=== PATIENT | female | born 1960 | race Caucasian/White ===

== ENCOUNTER 2020-03-24 00:50 | Outpatient (CLI) | payer OTHER, SELFPAY ==
[2020-03-24 18:01] LABS: SARS-CoV-2 RNA PCR Negative
== END 2020-03-24 00:51 | disposition home or self-care (01) ==
LOC: ANHCOVIDDT 00:52
PROVIDERS: PCP Family Medicine; Visit Provider Internal Medicine Gastroenterology
DX: Z01.812 Encounter for preprocedural laboratory examination (principal); Z20.828 Contact with and (suspected) exposure to other viral communicable diseases
CPT/HCPCS: 87635; C9803; U0003

== ENCOUNTER 2020-03-26 01:52 | Day surgery (SDC) | payer OTHER, SELFPAY ==
[2020-03-19 13:27] VITALS: BMI 28.3
[2020-03-26 09:13] VITALS: BP 140/94; PULSE 77; RESP 20; TEMP 36.4; O2SAT 99
[2020-03-26] MEDS: LACTATED RINGERS 1,000 ML 150 ML IV CONT (09:31)
[2020-03-26 09:34] LABS: Glucose Point of Care 100 (65-105)
--- NOTE | 2020-03-26 09:41 | WPDANESEPPF ---
Anes - Initial Pre Proc Eval Procedure: Operation Date: 03/26/20 10:00 Proposed Procedures p Esophagogastroduodenoscopy - Brooks Christopher MD Date/Time: 03/26/20 09:41 Surgeon: Brooks Christopher MD Pre Op Diagnosis: Heartburn Patient Data Age: 59 Gender: F Height: 5 ft 6 in Weight: 124.4 kg Last Vital Signs Temp 36.4 C 03/26/20 09:13 Pulse 77 03/26/20 09:13 Resp 20 03/26/20 09:13 BP 140/94 H 03/26/20 09:13 Pulse Ox 99 03/26/20 09:13 Allergies Allergy/AdvReac Type Severity Reaction Status Date / Time No Known Allergies Allergy Unverified 03/26/20 09:08 Home Medications Medication Instructions Recorded Confirmed Type nabumetone 500 mg tablet 500 mg PO BID 06/14/19 03/26/20 History Synthroid 75 mcg tablet 75 mcg PO DAILY #90 tablet NS 07/03/19 03/26/20 Rx gabapentin 300 mg capsule 300 mg PO BID 07/17/19 03/26/20 History triamterene 37.5 1 tablet PO QAM #90 tablet 08/02/19 03/26/20 Rx mg-hydrochlorothiazide 25 mg tablet metformin 500 mg tablet,extended 500 mg PO DAILY #90 tablet 08/08/19 03/26/20 Rx release 24 hr omeprazole 40 mg capsule,delayed 40 mg PO DAILY #90 cap 08/28/19 03/26/20 Rx release trazodone 50 mg tablet 50 mg PO .qhs #90 tablet 08/28/19 03/26/20 Rx albuterol sulfate 2.5 mg INHALATION Q4-6H PRN #90 ml 10/12/19 03/26/20 Rx nebulizers #1 each 10/12/19 03/26/20 Rx Anoro Ellipta 62.5 mcg-25 1 inhalation INHALATION DAILY 90 01/29/20 03/26/20 Rx mcg/actuation powder for inhalation Days #3 each NS venlafaxine 75 mg capsule,extended See Rx Instructions .ROUTE 02/01/20 03/26/20 Rx release 24 hr .COMPLEX #90 cap diclofenac epolamine 1.3 % 1 patch TOPICAL Q12H #180 each 02/26/20 03/26/20 Rx transdermal 12 hour patch sucralfate 1 gram tablet 1 gm PO .COMPLEX #120 tablet 03/13/20 03/26/20 Rx Laboratory Tests 03/26/20 09:30 POC Capillary Glucose 100 mg/dl mg/dl (65-105) Patient hx anesthesia problems: none Family hx anesthesia problems: none [facility] Past Medical History Medical History Anxiety and depression Autoimmune thyroiditis COPD (chronic obstructive pulmonary disease) with acute bronchitis Essential hypertension Human papillomavirus Hypothyroid Prediabetes Family History Family History Mother Hypertension Patient's mother is Father Family history of cardiovascular disease Family history of Alzheimer's disease Sibling Family history of cardiovascular disease Grandparent Family history of Alzheimer's disease Other Colon polyp Social History Social History Smoking status: Former smoker Tobacco type: cigarettes and e-cigarettes/vaping Smoking end date: 06/27/13 Alcohol intake: current Drinks per week: 5 Substance use: never Substance use type: does not use Living arrangements: with family Spiritual care concerns: No Anes - Eval Final PreProcedure Day of Procedure 03/26/20 09:41 Patient weight: morbidly obese Heart: regular rate and rhythm Lungs: decreased breath sounds Airway: Mallampati scale class II Neurological: alert and oriented Last oral intake: >/= 8 hours ASA classification: III Emergent: no Anesthetic plan: proceed Anesthesia type and monitoring: general GIVS and standard monitoring Informed Consent: The patient's anesthetic plan and its attendant risks and benefits were discussed with the patient/family/POA. Questions were solicited and answers provided to the satisfaction of the patient/family/POA.
--- NOTE | 2020-03-26 09:52 | WPDGICN ---
Assessment and Plan Assessment and plan (1) Gastroesophageal reflux disease: Qualifiers: Esophagitis presence: with esophagitis Qualified Code(s): K21.0 - Gastro-esophageal reflux disease with esophagitis Code(s): K21.9 - Gastro-esophageal reflux disease without esophagitis Status: Acute Assessment and Plan: Patient has ongoing heartburn poorly responsive to omeprazole 40 mg p.o. daily plus Carafate. She intermittently complains of dysphagia plan is to proceed with EGD now. In further recommendations after endoscopy. [place] diet anti-reflux measures are encouraged initially. (2) Morbid obesity with BMI of 40.0-44.9, adult: Code(s): E66.01 - Morbid (severe) obesity due to excess calories; Z68.41 - Body mass index (BMI) 40.0-44.9, adult Status: Acute (3) Colon polyps: Code(s): K63.5 - Polyp of colon Status: Acute Assessment and Plan: Serrated colon polyp was removed from the colon 2015. Plan is for surveillance colonoscopy in 2020. GI Consult Note Consult date/time: 03/26/20 09:52 HPI: oNni Alonzo is a 59 year old female Seen in evaluation at the request of Dr. Suleman Sun. Patient has a long history of heartburn. She has been treated for acid reflux with omeprazole 20 mg p.o. daily. Recently dose was increased to40mg p.o. daily, Carafate was added to this regimes. Patient's symptom of acid reflux and heartburn persist despite this medication. She occasionally notices difficulty swallowing. She denies any weight loss or bleeding. She presents today for EGD because of poor response to medication therapy. Review of Systems Review of Systems: All systems reviewed & are unremarkable except as noted in HPI and below PMFSH Past Medical History Medical History Anxiety and depression Autoimmune thyroiditis COPD (chronic obstructive pulmonary disease) with acute bronchitis Essential hypertension Human papillomavirus Hypothyroid Prediabetes Family History Family History Mother Hypertension Patient's mother is Father Family history of cardiovascular disease Family history of Alzheimer's disease Sibling Family history of cardiovascular disease Grandparent Family history of Alzheimer's disease Other Colon polyp Social History Social History Smoking status: Former smoker Tobacco type: cigarettes and e-cigarettes/vaping Smoking end date: 06/27/13 Alcohol intake: current Drinks per week: 5 Substance use: never Substance use type: does not use Living arrangements: with family Spiritual care concerns: No Meds Home Medications and Allergies Home Medications Medication Instructions Recorded Confirmed Type nabumetone 500 mg tablet 500 mg PO BID 06/14/19 03/26/20 History Synthroid 75 mcg tablet 75 mcg PO DAILY #90 tablet NS 07/03/19 03/26/20 Rx gabapentin 300 mg capsule 300 mg PO BID 07/17/19 03/26/20 History triamterene 37.5 1 tablet PO QAM #90 tablet 08/02/19 03/26/20 Rx mg-hydrochlorothiazide 25 mg tablet metformin 500 mg tablet,extended 500 mg PO DAILY #90 tablet 08/08/19 03/26/20 Rx release 24 hr omeprazole 40 mg capsule,delayed 40 mg PO DAILY #90 cap 08/28/19 03/26/20 Rx release trazodone 50 mg tablet 50 mg PO .qhs #90 tablet 08/28/19 03/26/20 Rx albuterol sulfate 2.5 mg INHALATION Q4-6H PRN #90 ml 10/12/19 03/26/20 Rx nebulizers #1 each 10/12/19 03/26/20 Rx Anoro Ellipta 62.5 mcg-25 1 inhalation INHALATION DAILY 90 01/29/20 03/26/20 Rx mcg/actuation powder for inhalation Days #3 each NS venlafaxine 75 mg capsule,extended See Rx Instructions .ROUTE 02/01/20 03/26/20 Rx release 24 hr .COMPLEX #90 cap diclofenac epolamine 1.3 % 1 patch TOPICAL Q12H #180 each 02/26/20 03/26/20 Rx transdermal 12 hour patch
[2020-03-26 10:12] VITALS: BP 111/68; PULSE 70; RESP 16; O2SAT 95
[2020-03-26 10:22] VITALS: BP 123/78; PULSE 61; RESP 16; O2SAT 95
[2020-03-26 10:32] VITALS: BP 134/74; PULSE 64; RESP 16; O2SAT 98
== END 2020-03-26 10:54 | disposition home or self-care (01) ==
PROVIDERS: PCP Family Medicine; Visit Provider Internal Medicine Gastroenterology
PROC: 0DJ08ZZ Inspection of Upper Intestinal Tract, Via Natural or Artificial Opening Endoscopic (ICD-10-PCS; CPT 43235; principal; 2020-03-26 10:00)
DX: K21.9 Gastro-esophageal reflux disease without esophagitis (principal); I10 Essential (primary) hypertension; J44.9 Chronic obstructive pulmonary disease, unspecified; R73.03 Prediabetes; F41.8 Other specified anxiety disorders; E06.3 Autoimmune thyroiditis; Z87.891 Personal history of nicotine dependence; Z79.84 Long term (current) use of oral hypoglycemic drugs; E66.01 Morbid (severe) obesity due to excess calories; Z68.41 Body mass index [BMI] 40.0-44.9, adult
CPT/HCPCS: 43239; 87081; J2704; J7120

== ENCOUNTER → 2020-07-31 13:47 | Outpatient (CLI) | payer OTHER, SELFPAY ==
--- NOTE | ~2020-07-31 | XR_ITS ---
XR chest 2V DATE: 07/31/2020 14:09 INDICATION: Covid 19 TECHNIQUE: 2 views COMPARISON: 05/12/2017 two-view chest FINDINGS: Normal heart size. There is aortic unfolding. No hilar or mediastinal enlargement. No pu lmonary infiltrate or consolidation, pulmonary vascular congestion or pleural effusion or pneumothora x. Diffuse osteopenia. IMPRESSION: No active disease Reviewed, dictated and finalized at location A. BODY MECHANIC IMPRESSION: No active disease
== END ==
PROVIDERS: PCP Family Medicine; Visit Provider Family Medicine
DX: U07.1 COVID-19 (principal)
CPT/HCPCS: 71046

== ENCOUNTER → 2020-09-18 07:03 | Outpatient (CLI) | payer OTHER, SELFPAY ==
--- NOTE | ~2020-09-18 | MR_ITS ---
EXAMINATION: MR IAC wo con EXAM DATE: 09/18/2020 07:48 INDICATION: R51.9 - Headache, unspecified headache . Severe dizziness, progressing. TECHNIQUE: Multi-sequential, multiplanar MR images of the brain, brainstem, internal auditory canals were obtained without contrast. Whole brain sagittal T1, axial diffusion, gradient echo (T2*), T1, T 2, FLAIR sequences obtained. High resolution coronal 3-D FIESTA, coronal T1 FSE, axial T1 FSPGR of t he internal auditory canals. There is no prior study for comparison. FINDINGS: No evidence of mastoid or middle ear opacification. The 7th/8th cranial nerve complexes a re symmetric, normal in course and caliber. No cerebellopontine angle masses. Posterior fossa unrem arkable. There are no areas of restricted diffusion to suggest acute infarction. There is no acute hemorrhage seen on the T2*, a hemosiderin sensitive sequence. No intraparenchymal brain mass. The ventricles a re normal in size. There are no extra-axial collections. Flow voids are seen in the cerebral arteri es on the T2-weighted sequences consistent with their expected patency. The orbits are unremarkable. Soft tissue is unremarkable. IMPRESSION: Unremarkable brain/IAC MRI examination. Reviewed, dictated and finalized at location A.
== END ==
PROVIDERS: PCP Family Medicine; Visit Provider Family Medicine
DX: R42 Dizziness and giddiness (principal); R51.9 Headache, unspecified
CPT/HCPCS: 70551

== ENCOUNTER → 2021-04-21 08:57 | Outpatient (CLI) | payer OTHER, SELFPAY ==
--- NOTE | ~2021-04-21 | CT_ITS ---
EXAMINATION: CT lung screening EXAM DATE: 04/21/2021 09:17 INDICATION: F17.201 - Nicotine dependence, unspecified, in remission. Personal history of nicotine de pendence. TECHNIQUE: Spiral low dose CT of the chest without contrast. Axial, coronal and sagittal images were reviewed. The dose-length product (DLP) for this examination was 268.25 mGy-cm. The exposure was t ailored according to patient size (auto mA exposure control), and iterative reconstruction (ASIR) was used as additional dose reduction technique. There is no prior study for comparison. FINDINGS: There is 3 mm left lateral sulcus nodule, most likely postinfectious. There is some epicar dial exit field there is mild emphysema. Fat insinuating in the left major fissure. Tracheobronchial tree is patent. There is no mediastinal, hilar or axillary lymphadenopathy. There are no pleural or pericardial effusions. There is no pneumothorax. Heart normal in size. There is mild brooks ry arterial calcification, arterial sclerosis. Upper abdomen is unremarkable. There is thoracic spo ndylosis without osteoblastic or osteolytic lesions identified. IMPRESSION: Lung-RADS category 2, benign appearance or behavior (<1% chance of malignancy); recommend continued LDCT screening in 1 year. Reviewed, dictated and finalized at location B.
== END ==
PROVIDERS: PCP Family Medicine; Visit Provider Family Medicine
DX: Z12.2 Encounter for screening for malignant neoplasm of respiratory organs (principal); Z87.891 Personal history of nicotine dependence
CPT/HCPCS: 71271

== ENCOUNTER 2021-07-13 00:26 | Day surgery (SDC) | payer OTHER, SELFPAY ==
[2021-06-25 13:41] VITALS: BMI 34.7
[2021-07-13 10:52] VITALS: BP 141/98; PULSE 76; RESP 17; TEMP 36.2; O2SAT 100; BMI 38.1
--- NOTE | 2021-07-13 10:54 | WPDANESEPPF ---
Anes - Initial Pre Proc Eval Procedure: Operation Date: 07/13/21 11:30 Proposed Procedures p Screening Colonoscopy - Brooks Christopher MD Date/Time: 07/13/21 10:54 Surgeon: Brooks Christopher MD Pre Op Diagnosis: hx of colon polyps Patient Data Age: 60 Gender: F Height: 1.68 m Weight: 97.7 kg Allergies Allergy/AdvReac Type Severity Reaction Status Date / Time No Known Allergies Allergy Verified 07/13/21 10:49 Home Medications Medication Instructions Recorded Confirmed Type nabumetone 500 mg tablet 500 mg PO BID 06/14/19 07/13/21 History gabapentin 300 mg capsule 300 mg PO BID 07/17/19 07/13/21 History albuterol sulfate 2.5 mg INHALATION Q4-6H PRN #90 ml 10/12/19 07/13/21 Rx nebulizers #1 each 10/12/19 05/12/21 Rx triamterene 37.5 See Rx Instructions .ROUTE 05/08/20 07/13/21 Rx mg-hydrochlorothiazide 25 mg tablet .COMPLEX #90 tablet metformin 500 mg tablet,extended See Rx Instructions .ROUTE 08/11/20 07/13/21 Rx release 24 hr .COMPLEX #90 tablet vitamin B complex 1 tablet PO WEEKLY 08/28/20 07/13/21 History omeprazole 40 mg capsule,delayed See Rx Instructions .ROUTE 10/28/20 07/13/21 Rx release .COMPLEX #180 cap atorvastatin 10 mg tablet 10 mg PO DAILY #90 tablet 12/23/20 07/13/21 Rx cholecalciferol (vitamin D3) 125 125 mcg PO DAILY 12/23/20 07/13/21 History mcg (5,000 unit) capsule bupropion HCl 300 mg 24 hr tablet, See Rx Instructions .ROUTE 01/06/21 07/13/21 Rx extended release .COMPLEX #90 tablet Anoro Ellipta 62.5 mcg-25 See Rx Instructions .ROUTE 01/28/21 07/13/21 Rx mcg/actuation powder for inhalation .COMPLEX #180 disk NS sucralfate 1 gram tablet See Rx Instructions .ROUTE 03/30/21 07/13/21 Rx .COMPLEX #360 tablet levothyroxine 75 mcg tablet See Rx Instructions .ROUTE 03/31/21 07/13/21 Rx .COMPLEX #90 tablet sertraline 50 mg tablet 50 mg PO DAILY #90 tablet 03/31/21 07/13/21 Rx trazodone 50 mg tablet See Rx Instructions .ROUTE 06/10/21 07/13/21 Rx .COMPLEX #90 tablet tizanidine 4 mg PO Q8H PRN 06/25/21 07/13/21 History felodipine 2.5 mg tablet,extended See Rx Instructions .ROUTE 06/30/21 07/13/21 Rx release 24 hr .COMPLEX #90 tablet ascorbic acid (vitamin C) 500 mg See Rx Instructions .ROUTE 07/06/21 07/13/21 Rx tablet .COMPLEX #60 tablet ferrous sulfate 325 mg (65 mg See Rx Instructions .ROUTE 07/06/21 07/13/21 Rx iron) tablet .COMPLEX #60 tablet Patient hx anesthesia problems: none Family hx anesthesia problems: none Results Review: All pre-operative results and documents have been reviewed as part of the pre-operative evaluation. [facility] Past Medical History Medical History Abnormal colonoscopy 2016 polyp. repeat in 5 years Anosmia Anxiety and depression Autoimmune thyroiditis BPPV (benign paroxysmal positional vertigo) COPD (chronic obstructive pulmonary disease) with acute bronchitis Essential hypertension Foot pain Gastro-esophageal reflux disease without esophagitis Human papillomavirus Hypothyroid Prediabetes Surgical History Surgical History History of back surgery 06.15.20 lumbar facet branch nerve ablation Family History Family History Mother Hypertension Patient's mother is Father Family history of cardiovascular disease Family history of Alzheimer's disease Sibling Family history of cardiovascular disease Grandparent Family history of Alzheimer's disease Other Colon polyp Social History Social History Smoking packs per day: 1 Smoking cigarettes per day: 20.0 Years smoked: 20 Smoking pack-years: 20.00 Smoking status: Former smoker Tobacco type: cigarettes Smoking end date: 06/27/13 Alcohol intake: current Drinks per week: 4 Alcohol use details: Patient states she drinks sociall
[2021-07-13] MEDS: LACTATED RINGERS 1,000 ML 150 ML IV CONT (11:05)
[2021-07-13 11:08] LABS: Glucose Point of Care 109 mg/dl (65-105)
--- NOTE | 2021-07-13 11:12 | WPDGICN ---
Assessment and Plan Assessment and plan (1) Colon polyps: Code(s): K63.5 - Polyp of colon Status: Acute Assessment and Plan: Patient was found to have adenomatous colon polyp removed from the colon 2016. Additionally her father has had colon polyps. Surveillance colonoscopy now and at 5 year intervals is advised. (2) Encounter for colonoscopy in patient with family history of colon polyps: Code(s): Z12.11 - Encounter for screening for malignant neoplasm of colon; Z83.71 - Family history of colonic polyps Status: Acute GI Consult Note Consult date/time: 07/13/21 11:12 HPI: Noni Alonzo is a 60 year old female Presents for screening colonoscopy. Patient was found to have an adenomatous colon polyp in 2016. She presents today for follow-up colonoscopy. Patient's family history is significant that her father had colon polyps. Patient states that her current weight appetite bowel movements are normal. She denies abdominal pain. She has had no bleeding. Review of Systems Review of Systems: All systems reviewed & are unremarkable except as noted in HPI and below PMFSH Past Medical History Medical History Abnormal colonoscopy 2016 polyp. repeat in 5 years Anosmia Anxiety and depression Autoimmune thyroiditis BPPV (benign paroxysmal positional vertigo) COPD (chronic obstructive pulmonary disease) with acute bronchitis Essential hypertension Foot pain Gastro-esophageal reflux disease without esophagitis Human papillomavirus Hypothyroid Prediabetes Surgical History Surgical History History of back surgery 06.15.20 lumbar facet branch nerve ablation Family History Family History Mother Hypertension Patient's mother is Father Family history of cardiovascular disease Family history of Alzheimer's disease Sibling Family history of cardiovascular disease Grandparent Family history of Alzheimer's disease Other Colon polyp Social History Social History Smoking packs per day: 1 Smoking cigarettes per day: 20.0 Years smoked: 20 Smoking pack-years: 20.00 Smoking status: Former smoker Tobacco type: cigarettes Smoking end date: 06/27/13 Alcohol intake: current Drinks per week: 4 Alcohol use details: Patient states she drinks socially Substance use: never Substance use type: does not use Living arrangements: with family Spiritual care concerns: No Meds Home Medications and Allergies Home Medications Medication Instructions Recorded Confirmed Type nabumetone 500 mg tablet 500 mg PO BID 06/14/19 07/13/21 History gabapentin 300 mg capsule 300 mg PO BID 07/17/19 07/13/21 History albuterol sulfate 2.5 mg INHALATION Q4-6H PRN #90 ml 10/12/19 07/13/21 Rx nebulizers #1 each 10/12/19 05/12/21 Rx triamterene 37.5 See Rx Instructions .ROUTE 05/08/20 07/13/21 Rx mg-hydrochlorothiazide 25 mg tablet .COMPLEX #90 tablet metformin 500 mg tablet,extended See Rx Instructions .ROUTE 08/11/20 07/13/21 Rx release 24 hr .COMPLEX #90 tablet vitamin B complex 1 tablet PO WEEKLY 08/28/20 07/13/21 History omeprazole 40 mg capsule,delayed See Rx Instructions .ROUTE 10/28/20 07/13/21 Rx release .COMPLEX #180 cap atorvastatin 10 mg tablet 10 mg PO DAILY #90 tablet 12/23/20 07/13/21 Rx cholecalciferol (vitamin D3) 125 125 mcg PO DAILY 12/23/20 07/13/21 History mcg (5,000 unit) capsule bupropion HCl 300 mg 24 hr tablet, See Rx Instructions .ROUTE 01/06/21 07/13/21 Rx extended release .COMPLEX #90 tablet Anoro Ellipta 62.5 mcg-25 See Rx Instructions .ROUTE 01/28/21 07/13/21 Rx mcg/actuation powder for inhalation .COMPLEX #180 disk NS sucralfate 1 gram tablet See Rx Instructions .ROUTE 03/30/21 07/13/21 Rx .COMPLEX #36
[2021-07-13 11:34] VITALS: BP 99/64; PULSE 64; RESP 16; O2SAT 99
[2021-07-13 11:44] VITALS: BP 102/67; PULSE 64; RESP 21; O2SAT 99
[2021-07-13 11:54] VITALS: BP 111/78; PULSE 60; RESP 19; O2SAT 97
== END 2021-07-13 12:31 | disposition home or self-care (01) ==
PROVIDERS: PCP Family Medicine; Visit Provider Internal Medicine Gastroenterology
PROC: 0DJD8ZZ Inspection of Lower Intestinal Tract, Via Natural or Artificial Opening Endoscopic (ICD-10-PCS; CPT 45378; principal; 2021-07-13 11:30)
DX: Z12.11 Encounter for screening for malignant neoplasm of colon (principal); Z83.71 Family history of colonic polyps; K64.8 Other hemorrhoids; Z86.010 Personal history of colon polyps; R43.0 Anosmia; F41.8 Other specified anxiety disorders; E06.3 Autoimmune thyroiditis; H81.10 Benign paroxysmal vertigo, unspecified ear; J44.9 Chronic obstructive pulmonary disease, unspecified; I10 Essential (primary) hypertension; K21.9 Gastro-esophageal reflux disease without esophagitis; R73.03 Prediabetes; Z87.891 Personal history of nicotine dependence; Z79.84 Long term (current) use of oral hypoglycemic drugs; Z79.51 Long term (current) use of inhaled steroids; E66.9 Obesity, unspecified; Z68.38 Body mass index [BMI] 38.0-38.9, adult
CPT/HCPCS: G0105; 82948; J2001; J2704; J7120

== ENCOUNTER → 2021-07-22 13:27 | Outpatient (CLI) | payer OTHER, SELFPAY ==
--- NOTE | ~2021-07-22 | DEXA_ITS ---
Bone Density Report Name: MARYCARMEN HERMAN Age: 60 Sex: Female Ethnicity: White Date of : 1960 Indication: postmenopausal; screening for osteoporosis; height loss; prior fracture; hysterectomy; Referring Provider: PAVITHRA MARTINEZ Study: Bone densitometry was performed. Exam Date: July 22, 2021 Accession number: [id number] Bone Density: Region BMD T-score Z-score Classification AP Spine (L1-L4) 1.037 -0.1 1.2 Normal Femoral Neck (Left) 0.667 -1.6 -0.4 Osteopenia Total Hip (Left) 0.844 -0.8 0.1 Normal Femoral Neck (Right) 0.686 -1.5 -0.2 Osteopenia Total Hip (Right) 0.858 -0.7 0.2 Normal Total Hip Mean 0.851 -0.8 0.2 Normal World Health Organization criteria for BMD impression classify patients as: Normal (T-score at or above -1.0), Osteopenia (T-score between -1.0 and -2.5), or Osteoporosis (T-score at or below -2.5). 10-year Fracture Risk(1): Major Osteoporotic Fracture 12% Hip Fracture 1.1% Reported Risk Factors: [place] (), Neck BMD=0.667, BMI=39.1, previous fracture (1) FRAX(R) Version 3.08. Fracture probability calculated for an untreated patient. Fracture probability may be lower if the patient has received treatment. Clinical Information Provided by Patient: Has had a low trauma fracture Has used the following medications: Vitamin D Has the following medical conditions: Hysterectomy Patient maximum height was 67 Menopause Age: 54 No regular weight bearing exercise Does not regularly consume dairy products Drinks caffeinated beverages Onset of menses at age 12 Number of children 2 Impression: The patient has low bone mass, based on the Left Femoral Neck T-score. The patient has an estimated ten-year risk of hip fracture of 1.1% and an estimated ten-year risk of major fracture of 12%, based on the WHO FRAX algorithm. The patient has risk factors, including: previous fracture. Discussion: BONE DENSITY IS LOW AT ONE OR MORE SKELETAL SITES. This patient's lowest T-score is low at one or more skeletal sites. It meets the World Health Organization's (WHO) criteria for ?low bone mass? (T-score between -1.0 and -2.5). The patient's 10-year risk of fracture as calculated by FRAX is less than the threshold where pharmacological therapy is recommended by the National Osteoporosis Foundation (NOF). However, all treatment decisions require clinical judgment and consideration of individual patient factors, including patient preferences, comorbidities, previous drug use, risk factors not captured in the FRAX model (e.g., frailty, falls, vitamin D deficiency, increased bone turnover, interval significant decline in bone density) and possible under or overestimation of fracture risk by FRAX. The patient should follow a healthful lifestyle (good nutrition with adequate calcium and vit
== END ==
PROVIDERS: PCP Family Medicine; Visit Provider Family Medicine
DX: Z78.0 Asymptomatic menopausal state (principal); M85.89 Other specified disorders of bone density and structure, multiple sites
CPT/HCPCS: 77080

== ENCOUNTER → 2022-07-29 12:51 | Outpatient (CLI) | payer OTHER, SELFPAY ==
--- NOTE | ~2022-07-29 | CT_ITS ---
EXAMINATION: CT lung screening DATE: 07/29/2022 13:06 INDICATION: Personal history of nicotine dependence, prior smoker with 20 pack year history TECHNIQUE: Computed tomography (CT) of the chest was performed without intravenous contrast. The dose -length product (DLP) was 394.28 mGy-cm. 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 COMPARISON: 04/21/2021 FINDINGS: There is a stable 3 mm nodule of the left lower lobe. There is mild dependent atelectasis. Mild emphysema is noted. No pleural effusion or pneumothorax. No pathologically enlarged thoracic lym ph nodes are identified. The heart size is normal. There is calcified coronary artery atherosclerosis . There is mild thoracic spondylosis. IMPRESSION: 1. Lung-RADS category 2: Benign appearance or behavior. Continue annual screening with noncontrast lo w-dose chest CT in 12 months. Reviewed, dictated and finalized at location L. OR RUBY DEVELOPER IMPRESSION: 1. Lung-RADS category 2: Benign appearance or behavior. Continue annual screeni ng with noncontrast low-dose chest CT in 12 months.
== END ==
PROVIDERS: PCP Family Medicine; Visit Provider Family Medicine
DX: Z12.2 Encounter for screening for malignant neoplasm of respiratory organs (principal); Z87.891 Personal history of nicotine dependence
CPT/HCPCS: 71271

== ENCOUNTER 2022-08-05 15:50 | Outpatient (CLI) | payer OTHER, SELFPAY ==
--- NOTE | ~2022-08-05 | XR_ITS ---
EXAMINATION: XR foot RT standing 2V DATE: 08/05/2022 16:42 INDICATION: Systemic involvement of connective tissue TECHNIQUE: 1. Dorsoplantar and lateral views of the left foot were obtained. 2. Dorsoplantar and lateral views of the right foot were obtained. COMPARISON: None. FINDINGS: There is relatively symmetric medial deviation of the bilateral second and third toes at the metatars ophalangeal joints. No fractures. Mild osteoarthritis characterized by nonuniform joint space narrowi ng and a few tiny marginal osteophytes at multiple joints in the bilateral mid and forefeet. No erosi ons to suggest inflammatory arthritis. No active osteolysis. There are multiple small amorphous peria rticular soft tissue calcifications about the bilateral second and third and right fourth metatarsoph alangeal joints. IMPRESSION: 1. 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 2. A few small nonspecific periarticular calcifications at the bilateral central metatarsophalangeal joints which has a wide differential. This does however coincide with medial deviation of the bilater al second and third metatarsophalangeal joints and the combination of soft tissue calcifications, dev iation of the joints (more typically seen at the metacarpophalangeal joints) and absence of erosions can be seen in the setting of lupus. Reviewed, dictated and finalized at location A. [place] [employer]PERATIONS SPECIALIST IMPRESSION: 1. 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 2. A few small nonspecific periarticular calcifications at the bilateral centra l metatarsophalangeal joints which has a wide differential. This does however c oincide with medial deviation of the bilateral second and third metatarsophalan geal joints and the combination of soft tissue calcifications, deviation of the joints (more typically seen at the metacarpophalangeal joints) and absence of erosions can be seen in the setting of lupus.
--- NOTE | ~2022-08-05 | XR_ITS ---
EXAMINATION: XR sacroiliac joints min 3V DATE: 08/05/2022 16:42 INDICATION: Systemic involvement of connective tissue TECHNIQUE: AP and left and right oblique views of the sacroiliac joints were obtained. COMPARISON: None. FINDINGS: Sacral arches are intact. No fracture or suspected avascular necrosis. Mild osteoarthritis at the sky ateral hip and sacroiliac joints. No erosions along the sacroiliac joints to suggest inflammatory sac roiliitis. Mild lumbar spondylosis with mild to moderate facet osteoarthritis in lower lumbar spine. No evident pars intra-articular is defects. IMPRESSION: 1. 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 Reviewed, dictated and finalized at location A. E PRODUCER
--- NOTE | ~2022-08-05 | XR_ITS ---
EXAMINATION: XR foot LT standing 2V DATE: 08/05/2022 16:42 INDICATION: Systemic involvement of connective tissue TECHNIQUE: 1. Dorsoplantar and lateral views of the left foot were obtained. 2. Dorsoplantar and lateral views of the right foot were obtained. COMPARISON: None. FINDINGS: There is relatively symmetric medial deviation of the bilateral second and third toes at the metatars ophalangeal joints. No fractures. Mild osteoarthritis characterized by nonuniform joint space narrowi ng and a few tiny marginal osteophytes at multiple joints in the bilateral mid and forefeet. No erosi ons to suggest inflammatory arthritis. No active osteolysis. There are multiple small amorphous peria rticular soft tissue calcifications about the bilateral second and third and right fourth metatarsoph alangeal joints. IMPRESSION: 1. 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 2. A few small nonspecific periarticular calcifications at the bilateral central metatarsophalangeal joints which has a wide differential. This does however coincide with medial deviation of the bilater al second and third metatarsophalangeal joints and the combination of soft tissue calcifications, dev iation of the joints (more typically seen at the metacarpophalangeal joints) and absence of erosions can be seen in the setting of lupus. Reviewed, dictated and finalized at location A. PULLER IMPRESSION: 1. 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 2. A few small nonspecific periarticular calcifications at the bilateral centra l metatarsophalangeal joints which has a wide differential. This does however c oincide with medial deviation of the bilateral second and third metatarsophalan geal joints and the combination of soft tissue calcifications, deviation of the joints (more typically seen at the metacarpophalangeal joints) and absence of erosions can be seen in the setting of lupus.
--- NOTE | ~2022-08-05 | XR_ITS ---
EXAMINATION: HAND-MARIUSZ ARTHRITIS 3+VIEWS DATE: 08/05/2022 16:42 INDICATION: Stomach involvement of connective tissue TECHNIQUE: Posteroanterior, lateral, and oblique views of the left and of the right hands as well as a ballcatchers view of both hands were obtained. COMPARISON: None. FINDINGS: Normal alignment at the bilateral hands. No fractures. Mild osteoarthritis at the bilateral first car pometacarpal and many of the bilateral metacarpophalangeal and interphalangeal joints with distal int erphalangeal joint predominance. This characterized by nonuniform joint space narrowing and tiny aisha inal osteophytes. No erosions to suggest an inflammatory arthritis. Soft tissues are unremarkable. IMPRESSION: 1. Typical symmetric distribution of mild polyarticular osteoarthritis at the bilateral hands. No ero sions to suggest inflammatory arthritis. Reviewed, dictated and finalized at location A. DING WHEEL OPERATOR IMPRESSION: 1. Typical symmetric distribution of mild polyarticular osteoarthritis at the b ilateral hands. No erosions to suggest inflammatory arthritis.
[2022-08-05 17:14] LABS: Alanine Aminotransferase 25 U/L (6-35); Albumin Level 4.7 g/dL (3.5-5.1); Alkaline Phosphatase 90 U/L (38-126); Anion Gap 11 mmol/L (8-16); Aspartate Amino Transferase 28 U/L (14-36); Bilirubin,Total 0.5 mg/dL (0.2-1.3); Blood Urea Nitrogen 19 mg/dL (7-17); CRP 0.9 mg/dL (<1.0); Calcium 8.9 mg/dL (8.4-10.2); Carbon Dioxide 22 mmol/L (22-30); Chloride 104 mmol/L (98-107); Estimated Glomerular Filt Rate > 60; Glucose 107 mg/dL (65-110); Potassium 3.8 mmol/L (3.4-5.0); Sodium 137 mmol/L (137-145); Uric Acid 7.3 mg/dL (2.5-7.5)
[2022-08-05 17:16] LABS: Basophils Absolute Auto 0.1 K/mm3 (0.0-0.1); Basophils Percent Auto 0.7 % (0.2-1.2); Eosinophils Absolute Auto 0.1 K/mm3 (0-0.3); Eosinophils Percent Auto 1.3 % (0-4.4); Hematocrit 38.7 % (37.0-47.0); Hemoglobin 12.5 g/dL (12.0-15.0); Immature Granulocyte Absolute 0.02 K/mm3 (0.00-0.031); Immature Granulocyte Percent A 0.3 % (0-0.5); Lymphocytes Absolute Auto 1.71 K/mm3 (0.9-3.2); Lymphocytes Percent Auto 22.6 % (18.3-44.2); Mean Corpuscular HGB Conc 32.3 g/dl (32-36); Mean Corpuscular Volume 92.8 fl (80-100); Mean Platelet Volume 10.3 fl (7.4-10.4); Monocytes Absolute Auto 0.3 K/mm3 (0.1-0.6); Monocytes Percent Auto 4.5 % (2.6-8.5); Neutrophils Absolute Auto 5.4 K/mm3 (1.3-6.7); Neutrophils Percent Auto 70.6 % (45.5-73.1); Platelet Count Result 300 k/mm3 (150-375); Red Blood Count 4.17 M/mm3 (4.2-5.4); Red Cell Distribution Width 13.3 % (11.5-14.5); White Blood Count 7.6 K/mm3 (4.5-10.0)
[2022-08-05 18:00] LABS: Vitamin D 25 Hydroxy 43.1 ng/mL
[2022-08-05 18:42] LABS: Complement C3 139 mg/dL (88-165)
[2022-08-05 18:57] LABS: Erythrocyte Sedimentation Rate 22 mm/hr (0-20)
[2022-08-11 21:32] LABS: Anti Cyclic Citrullinated Pept 32 Units (<20)
== END 2022-08-05 15:51 | disposition home or self-care (01) ==
LOC: ANHIMG 16:03
PROVIDERS: PCP Family Medicine; Visit Provider Internal Medicine
DX: M35.9 Systemic involvement of connective tissue, unspecified (principal); M15.9 Polyosteoarthritis, unspecified; M25.872 Other specified joint disorders, left ankle and foot; M25.871 Other specified joint disorders, right ankle and foot; M47.898 Other spondylosis, sacral and sacrococcygeal region
CPT/HCPCS: 36415; 72202; 73130; 73620; 80053; 82306; 84550; 85025; 85613; 85652; 85730; 86140; 86160; 86200

== ENCOUNTER 2022-08-24 13:00 | Outpatient (CLI) | payer OTHER, SELFPAY ==
--- NOTE | 2022-08-30 22:36 | WPDPFTINT ---
PFT Procedure Performed PFT Procedure Performed Spirometry with Pre/Post Bronchodilator Plethysmography (Lung Vol) Diffusing Cap (DLCO) Flow Vol Loop PFT Interpretation DOS: 08/24/2022 REQUESTING: Gina Sun MD REASON FOR TESTING: COPD PULMONARY FUNCTION TESTS Results are reliable and reproducible. Spirometry: Pre bronchodilator FEV1 is 2.72 L, 101% predicted. Pre bronchodilator FVC is 3.14 L, 91% predicted, normal. The FEV1/ FVC ratio is 87%, normal. After bronchodilator, there is a 2% increase in the FEV1 and a 5% increase in the FVC. These are not statistically significant increases. Lung volumes: Total lung capacity is 5.27 L, 98%, normal. Residual volume is 1.94 L, 94%, normal. RV/TLC is 37%, normal. Airway resistance is 1.15 cmH2O/L/sec, 68%, normal. Diffusion: DLCO is 20.7, 92%, normal. DLCO/VA is 4.30, 98%, normal. Flow volume loop: Normal. IMPRESSION: Normal spirometry, lung volumes, diffusion and flow volume loop. Lack of response to bronchodilator does not preclude use of clinically indicated. Edie Frances MD
== END 2022-08-24 13:01 | disposition home or self-care (01) ==
LOC: ANHPFT 13:00
PROVIDERS: PCP Family Medicine; Visit Provider Family Medicine
DX: J44.9 Chronic obstructive pulmonary disease, unspecified (principal)
CPT/HCPCS: 94060; 94726; 94729

== ENCOUNTER 2022-10-05 14:11 | Outpatient (CLI) | payer OTHER, SELFPAY ==
--- NOTE | 2022-10-05 14:18 | ECHO_ITS ---
Patient Info Name: Noni Alonzo Age: 62 years : 1960 Gender: Female Ht: 66 in Wt: 250 lbs BSA: 2.35 m2 HR: 69 bpm BP: 108 / 88 mmHg Technical Quality: Fair Exam Date: 10/05/2022 2:24 PM Exam Location: [facility] Patient Status: Outpatient Admit Date: 10/05/2022 Staff Ordering Physician: Gina Sun MD Cardiac Nurse Specialist: Yoanna Odonnell RDCS Attending Provider: Gina Sun MD Referring Physician: Dino PIZARRO; Exam Type: CA echo doppler color flow Study Info Indications R06.02 - Shortness of breath Complete two-dimensional, color flow and Doppler transthoracic echocardiogram is performed. Summary 1. Complete two-dimensional, color flow and Doppler transthoracic echocardiogram is performed. 2. Left ventricular chamber dimension is normal. 3. Left ventricular systolic function is normal, estimated at 60-65%. 4. The left ventricular diastolic function is grade I diastolic dysfunction. 5. E/e' 5 is not elevated. 6. Global longitudinal strain is normal at -20.8%. 7. There is mild aortic valve sclerosis. 8. No pulmonary hypertension, estimated pulmonary arterial systolic pressure is 23 mmHg. Left Ventricle E/e' 5 is not elevated. Global longitudinal strain is normal at -20.8%. Left ventricular chamber dimension is normal. Left ventricular systolic function is normal, estimated at 60-65%. The left ventricular diastolic function is grade I diastolic dysfunction. Right Ventricle Right ventricular systolic function is normal and with normal TAPSE 2.4 cm. Right ventricular chamber dimension is normal. Left Atria Left atrial chamber dimension is normal. Right Atria Right atrial chamber dimension is normal. Aortic Valve The aortic valve is trileaflet. There is mild aortic valve sclerosis. There is no aortic valve stenosis. There is no aortic valve regurgitation. Pulmonic Valve There is no pulmonic regurgitation. Mitral Valve There is no mitral valve stenosis. There is no mitral valve regurgitation. Tricuspid Valve There is no tricuspid valve regurgitation. No pulmonary hypertension, estimated pulmonary arterial systolic pressure is 23 mmHg. Pericardium/Pleural There is no pericardial effusion. Inferior Vena Cava Normal inferior vena cava with >50% collapse upon inspiration consistent with normal right atrial pressure, 5 mmHg. Aorta The aortic root size at the sinus of Valsalva is normal. Left Ventricular Outflow Tract Name Value Normal LVOT 2D LVOT Diameter 2.0 cm LVOT Doppler LVOT Peak Gradient 7 mmHg LVOT Mean Gradient 4 mmHg LVOT VTI 30 cm LVOT VTI/AV VTI Ratio 0.9 LVOT Stroke Volume 92 ml LVOT CO 5.7 l/min LVOT CI 2.4 l/min/m2 Pulmonic Valve Name Value Normal
== END 2022-10-05 14:12 | disposition home or self-care (01) ==
LOC: ANHCARD 14:12
PROVIDERS: PCP Family Medicine; Visit Provider Family Medicine
DX: R06.02 Shortness of breath (principal)
CPT/HCPCS: 93306

== ENCOUNTER 2023-02-07 12:06 | Outpatient (CLI) | payer OTHER, SELFPAY ==
[2023-02-07 13:04] LABS: Hematocrit 38.5 % (37.0-47.0); Hemoglobin 12.9 g/dL (12.0-15.0); Mean Corpuscular HGB Conc 33.5 g/dl (32-36); Mean Corpuscular Hemoglobin 30.7 pg (26-34); Mean Corpuscular Volume 91.7 fl (80-100); Mean Platelet Volume 10.3 fl (7.4-10.4); Platelet Count Result 280 k/mm3 (150-375); Red Cell Distribution Width 13.4 % (11.5-14.5); White Blood Count 7.5 K/mm3 (4.5-10.0)
[2023-02-07 13:21] LABS: Alanine Aminotransferase 26 U/L (6-35); Albumin Level 4.5 g/dL (3.5-5.1); Alkaline Phosphatase 78 U/L (38-126); Anion Gap 10 mmol/L (8-16); Aspartate Amino Transferase 27 U/L (14-36); Bilirubin,Total 0.5 mg/dL (0.2-1.3); Blood Urea Nitrogen 15 mg/dL (7-17); CRP 0.7 mg/dL (<1.0); Calcium 9.5 mg/dL (8.4-10.2); Carbon Dioxide 28 mmol/L (22-30); Chloride 99 mmol/L (98-107); Estimated Glomerular Filt Rate 51; Glucose 96 mg/dL (65-110); Potassium 3.5 mmol/L (3.4-5.0); Sodium 137 mmol/L (137-145)
[2023-02-07 13:36] LABS: Erythrocyte Sedimentation Rate 25 mm/hr (0-20)
[2023-02-07 14:30] LABS: Bilirubin Urine 1+ (Negative); Blood Urine Negative (Negative); Color Urine Yellow (Yellow); Glucose Urine UA Negative (Negative); Ketones Urine Trace mg/dL (Negative); Leukocyte Esterase Ur 1+ LEU/UL (Negative); Nitrate Urine Negative (Negative); Protein Urine 1+ mg/dL (Negative); Specific Grav Ur >= 1.030 (1.001-1.035); Urobilinogen Urine 0.2 mg/dL (<2.0); pH Urine 5.5 (5.0-9.0)
[2023-02-07 14:32] LABS: Appearance Urine Cloudy (Clear)
[2023-02-07 14:53] LABS: Add Urine Microscopic? YES
[2023-02-07 14:55] LABS: Bacteria Urine Trace /hpf; RBC Urine 0-2 /hpf (0-2); Squamous Epithelial Cell Urine Moderate /hpf (Few)
== END 2023-02-07 12:07 | disposition home or self-care (01) ==
LOC: ANHLAB 12:09
PROVIDERS: PCP Family Medicine; Visit Provider Internal Medicine
DX: M35.9 Systemic involvement of connective tissue, unspecified (principal); M19.90 Unspecified osteoarthritis, unspecified site
CPT/HCPCS: 36415; 80053; 81001; 85027; 85652; 86140

== ENCOUNTER 2023-02-22 15:29 | Outpatient (CLI) | payer OTHER, SELFPAY ==
--- NOTE | ~2023-02-22 | MR_ITS ---
MRI of the right foot CLINICAL HISTORY: Rheumatoid arthritis, lupus TECHNIQUE: Axial and coronal T1-weighted and T2 fat-sat images, and sagittal T1-weighted and STIR garrick ges were performed. Following intravenous administration of 20 cc MultiHance gadolinium, T1-weighted fat-sat imaging was performed in the axial, coronal, and sagittal planes. COMPARISON: 04/14/2019 FINDINGS: There are mild degenerative changes at the first, second, and third MTP joints, with mild m edial subluxation at the second and third MTP joints. There are reactive bone marrow signal changes a t the second and third metatarsal heads. No suspicious bone marrow signal abnormality seen to suggest infection or fracture. No erosive change evident. No joint effusion evident. There are additional pr obable mild degenerative changes at the interphalangeal joints of the toes. There is tenosynovitis of the flexor hallucis longus tendon at and distal to the level of the sustent aculum talus. Remaining visualized tendons are otherwise intact. Visualized musculature of the foot i s unremarkable. Plantar fascia is intact. There is edema like signal in the sinus Tarsi region. IMPRESSION: Mild polyarticular osteoarthritis, as detailed above, most prominent at the first, second, and third MTP joints. Tenosynovitis of the flexor hallucis longus tendon, as detailed above. Edema-like signal in the sinus Tarsi. Correlate for sinus Tarsi syndrome. Reviewed, dictated and finalized at location . IMPRESSION: Mild polyarticular osteoarthritis, as detailed above, most prominent at the fir st, second, and third MTP joints. Tenosynovitis of the flexor hallucis longus tendon, as detailed above. Edema-like signal in the sinus Tarsi. Correlate for sinus Tarsi syndrome.
--- NOTE | ~2023-02-22 | MR_ITS ---
MRI of the left foot CLINICAL HISTORY: Rheumatoid arthritis, lupus TECHNIQUE: Axial T1-weighted, T2 fat-sat, and T1 fat-sat images, sagittal T1-weighted and STIR images , and coronal T1-weighted and T2 fat-sat images were performed. Following intravenous administration of 20 cc MultiHance gadolinium, T1-weighted fat-sat imaging was performed in the axial, coronal, and sagittal planes. FINDINGS: There is medial subluxation/deviation at the second and third MTP joints. No distinct erosi ve change identified. No suspicious bone marrow edema identified. No evidence for fracture or infecti on. Joint spaces themselves are relatively well preserved throughout the foot. Visualized tendons are intact. Plantar fascia is intact. Intrinsic musculature of the foot is unremar kable. There is edema like signal in the sinus Tarsi. No soft tissue mass or fluid collection seen ot herwise. IMPRESSION: Medial subluxation of the second and third MTP joints, which could reflect ligamentous laxity related to underlying lupus/rheumatoid arthritis. No gross erosive changes or other arthropathy evident. Edema-like signal in the sinus Tarsi. Correlate for sinus Tarsi syndrome. Reviewed, dictated and finalized at location . IMPRESSION: Medial subluxation of the second and third MTP joints, which could reflect liga mentous laxity related to underlying lupus/rheumatoid arthritis. No gross erosive changes or other arthropathy evident. Edema-like signal in the sinus Tarsi. Correlate for sinus Tarsi syndrome.
== END 2023-02-22 15:30 | disposition home or self-care (01) ==
LOC: ANHIMG 15:31
PROVIDERS: PCP Family Medicine; Referring Provider Podiatrist Foot & Ankle Surgery; Visit Provider Internal Medicine
DX: M35.9 Systemic involvement of connective tissue, unspecified (principal); M79.89 Other specified soft tissue disorders
CPT/HCPCS: 73720; A9577

== ENCOUNTER 2023-03-25 10:44 | Outpatient (CLI) | payer OTHER, SELFPAY ==
[2023-03-25 11:37] LABS: Hematocrit 40.3 % (37.0-47.0); Hemoglobin 13.1 g/dL (12.0-15.0); Mean Corpuscular HGB Conc 32.5 g/dl (32-36); Mean Corpuscular Hemoglobin 30.9 pg (26-34); Mean Platelet Volume 10.2 fl (7.4-10.4); Platelet Count Result 306 k/mm3 (150-375); Red Blood Count 4.24 M/mm3 (4.2-5.4); Red Cell Distribution Width 13.8 % (11.5-14.5); White Blood Count 6.5 K/mm3 (4.5-10.0)
[2023-03-25 11:55] LABS: Alanine Aminotransferase 29 U/L (6-35); Albumin Level 4.8 g/dL (3.5-5.1); Alkaline Phosphatase 72 U/L (38-126); Anion Gap 8 mmol/L (8-16); Appearance Urine Turbid (Clear); Aspartate Amino Transferase 31 U/L (14-36); Bacteria Urine 2+ /hpf; Bilirubin Urine Negative (Negative); Bilirubin,Total 0.9 mg/dL (0.2-1.3); Blood Urea Nitrogen 17 mg/dL (7-17); Blood Urine Negative (Negative); CRP 0.6 mg/dL (<1.0); Calcium 9.5 mg/dL (8.4-10.2); Carbon Dioxide 30 mmol/L (22-30); Chloride 100 mmol/L (98-107); Color Urine Dark Yellow (Yellow); Estimated Glomerular Filt Rate 57; Glucose 99 mg/dL (65-110); Glucose Urine UA Negative (Negative); Hyaline Casts Urine Present /lpf; Ketones Urine Trace mg/dL (Negative); Leukocyte Esterase Ur 2+ LEU/UL (Negative); Need Manual Microscopic Reviewed; Nitrate Urine Negative (Negative); Potassium 3.5 mmol/L (3.4-5.0); Protein Urine 1+ mg/dL (Negative); Sodium 138 mmol/L (137-145); Specific Grav Ur 1.027 (1.001-1.035); Squamous Epithelial Cell Urine Many /hpf (Few); WBC Urine 51-100 /hpf; pH Urine 5.5 (5.0-9.0)
[2023-03-25 12:31] LABS: Add Urine Microscopic? YES
[2023-03-25 12:55] LABS: Erythrocyte Sedimentation Rate 23 mm/hr (0-20)
[2023-03-30 08:51] LABS: Quantiferon TB Plus, 1T Negative
[2023-03-30 08:52] LABS: NIL 0.01
== END 2023-03-25 10:45 | disposition home or self-care (01) ==
LOC: ANHLAB 10:46
PROVIDERS: PCP Family Medicine; Visit Provider Internal Medicine
DX: M35.1 Other overlap syndromes (principal); M19.90 Unspecified osteoarthritis, unspecified site; Z79.899 Other long term (current) drug therapy
CPT/HCPCS: 36415; 80053; 81001; 85027; 85652; 86140; 86480; 87086; 87088

== ENCOUNTER 2023-07-29 15:35 | Outpatient (CLI) | payer OTHER, SELFPAY ==
[2023-07-29 16:30] LABS: Hematocrit 37.5 % (37.0-47.0); Hemoglobin 12.2 g/dL (12.0-15.0); Mean Corpuscular HGB Conc 32.5 g/dl (32-36); Mean Corpuscular Hemoglobin 28.8 pg (26-34); Mean Corpuscular Volume 88.7 fl (80-100); Mean Platelet Volume 10.4 fl (7.4-10.4); Platelet Count Result 293 k/mm3 (150-375); Red Blood Count 4.23 M/mm3 (4.2-5.4); Red Cell Distribution Width 13.8 % (11.5-14.5); White Blood Count 5.5 K/mm3 (4.5-10.0)
[2023-07-29 16:47] LABS: Alanine Aminotransferase 21 U/L (6-35); Albumin Level 4.5 g/dL (3.5-5.1); Alkaline Phosphatase 94 U/L (38-126); Anion Gap 9 mmol/L (8-16); Aspartate Amino Transferase 27 U/L (14-36); Bilirubin,Total 0.7 mg/dL (0.2-1.3); Blood Urea Nitrogen 22 mg/dL (7-17); CRP < 0.5 mg/dL (<1.0); Calcium 9.8 mg/dL (8.4-10.2); Carbon Dioxide 28 mmol/L (22-30); Chloride 101 mmol/L (98-107); Estimated Glomerular Filt Rate > 60; Glucose 95 mg/dL (65-110); Potassium 3.5 mmol/L (3.4-5.0); Sodium 138 mmol/L (137-145)
[2023-07-29 16:51] LABS: Appearance Urine Cloudy (Clear); Bacteria Urine None Seen /hpf; Bilirubin Urine Negative (Negative); Blood Urine Negative (Negative); Color Urine Yellow (Yellow); Glucose Urine UA Negative (Negative); Hyaline Casts Urine Present /lpf; Ketones Urine Trace mg/dL (Negative); Leukocyte Esterase Ur 1+ LEU/UL (Negative); Mucus Urine Present /lpf; Need Manual Microscopic Reviewed; Nitrate Urine Negative (Negative); Protein Urine Trace mg/dL (Negative); RBC Urine 0-2 /hpf (0-2); Specific Grav Ur 1.022 (1.001-1.035); Squamous Epithelial Cell Urine None seen /hpf (Few); Urobilinogen Urine 0.2 mg/dL (<2.0); WBC Urine 0-5 /hpf
[2023-07-29 16:52] LABS: Add Urine Microscopic? YES
[2023-07-29 16:57] LABS: Erythrocyte Sedimentation Rate 26 mm/hr (0-20)
== END 2023-07-29 15:36 | disposition home or self-care (01) ==
LOC: ANHLAB 15:36
PROVIDERS: PCP Family Medicine; Visit Provider Internal Medicine
DX: M35.1 Other overlap syndromes (principal); M19.90 Unspecified osteoarthritis, unspecified site; Z79.899 Other long term (current) drug therapy
CPT/HCPCS: 36415; 80053; 81001; 85027; 85652; 86140

== ENCOUNTER 2023-10-26 12:44 | Outpatient (CLI) | payer OTHER, SELFPAY ==
--- NOTE | ~2023-10-26 | CT_ITS ---
CT Scan of the Chest without Contrast: Clinical Indication: Lung cancer screening, nicotine dependence Technique: Contiguous sections were acquired throughout the chest without intravenous contrast. Dose reduction technique was used on this scan by utilizing automated exposure control and iterative recon struction technique. The dose-length product (DLP) was 339.55 mGy-cm. COMPARISON: 07/29/2022 Findings: There is no evidence of any significant mediastinal, hilar or axillary lymphadenopathy. Coronary héctor ry calcifications are present. There is no evidence of pleural or pericardial effusion. The lungs are clear. No pulmonary nodules or infiltrates are noted. Images through the upper abdomen reveal no abnormalities. Impression: Lung RADS 1: Negative. 12 month follow-up screening CT advised. Reviewed, dictated and finalized at location . Impression: Lung RADS 1: Negative. 12 month follow-up screening CT advised.
== END 2023-10-26 12:45 ==
LOC: MICIMG 12:46
PROVIDERS: PCP Family Medicine; Visit Provider Family Medicine
DX: Z12.2 Encounter for screening for malignant neoplasm of respiratory organs (principal); J43.9 Emphysema, unspecified; Z87.891 Personal history of nicotine dependence
CPT/HCPCS: 71271

== ENCOUNTER 2024-05-04 11:21 | Outpatient (CLI) | payer OTHER, SELFPAY ==
[2024-05-04 12:37] LABS: Hemoglobin A1C 5.4 % (<5.7)
[2024-05-04 12:52] LABS: Vitamin D 25 Hydroxy 46.7 ng/mL
[2024-05-04 13:34] LABS: Cholesterol 204 mg/dL (0-200); HDL Direct 57 mg/dL; Triglycerides 189 mg/dL (<150)
[2024-05-04 13:44] LABS: LDL Cholesterol Direct 93 mg/dL
[2024-05-04 14:09] LABS: Thyroid Stimulating Hormone 0.045 uIU/mL (0.465-4.680)
[2024-05-04 14:50] LABS: Vitamin B12 > 1000.0 pg/mL (239-931)
== END 2024-05-04 11:22 | disposition home or self-care (01) ==
PROVIDERS: PCP Family Medicine; Visit Provider Nurse Practitioner Family
DX: E04.0 Nontoxic diffuse goiter (principal); E78.2 Mixed hyperlipidemia; I10 Essential (primary) hypertension; R73.03 Prediabetes; E53.9 Vitamin B deficiency, unspecified; E55.9 Vitamin D deficiency, unspecified
CPT/HCPCS: 36415; 80061; 82306; 82607; 83036; 84443

== ENCOUNTER 2025-01-04 10:22 | Outpatient (CLI) | payer OTHER, SELFPAY ==
--- NOTE | ~2025-01-04 | DEXA_ITS ---
Bone Density Report Name: MARYCARMEN HERMAN Age: 64 Sex: Female Ethnicity: White Date of : 1960 Indication: postmenopausal; screening for osteoporosis; rheumatoid arthritis; Referring Provider: PAVITHRA MARTINEZ Study: Bone densitometry was performed. Exam Date: January 04, 2025 Accession number: [id number] Bone Density: Region BMD T-score Z-score Classification AP Spine(L1-L4) 1.016 -0.3 1.3 Normal Femoral Neck (Left) 0.559 -2.6 -1.2 Osteoporosis Total Hip (Left) 0.713 -1.9 -0.8 Osteopenia Femoral Neck (Right) 0.626 -2.0 -0.6 Osteopenia Total Hip (Right) 0.733 -1.7 -0.6 Osteopenia Total Hip Mean 0.723 -1.8 -0.7 Osteopenia World Health Organization criteria for BMD impression classify patients as: Normal (T-score at or above -1.0), Osteopenia (T-score between -1.0 and -2.5), or Osteoporosis (T-score at or below -2.5). 10-year Fracture Risk: FRAX not reported because: Some T-score for Spine Total or Hip Total or Femoral Neck at or below -2.5 Previous Exams: -- Region Exam Age BMD T-score BMD Change BMD Change Date g/cm2 vs Baseline vs Previous -- AP Spine (L1-L4) 01/04/2025 64 1.016 -0.3 -2.1%# -2.1%# 07/22/2021 60 1.037 -0.1 Total Hip(Left) 01/04/2025 64 0.713 -1.9 -15.5%# -15.5%# 07/22/2021 60 0.844 -0.8 Total Hip(Right) 01/04/2025 64 0.733 -1.7 -14.6%# -14.6%# 07/22/2021 60 0.858 -0.7 -- *Denotes significance at 95% confidence level, LSC for AP Spine = 0.022 g/cm2, LSC for Total Hip = 0.027 g/cm2 # Denotes dissimilar scan types or analysis methods Clinical Information Provided by Patient: Has rheumatoid arthritis Has used the following medications: Vitamin D Patient maximum height was 66 Menopause Age: 54 No regular weight bearing exercise Does not regularly consume dairy products Drinks caffeinated beverages Onset of menses at age 12 Number of children 2 Impression: The patient has osteoporosis, based on the Left Femoral Neck T-score. Unable to evaluate interval change due to the use of different scan modes. Discussion: INCREASED RISK OF FRACTURE. BONE DENSITY IS UNDESIRABLY LOW AT ONE OR MORE SKELETAL SITES, CONSISTENT WITH POSTMENOPAUSAL OSTEOPOROSIS. This patient's lowest T-score meets the World Health Organization's (WHO) criteria for osteoporosis at one or more sites (T-score -2.5 or below). In untreated patients, the risk of osteoporotic fracture increases approximately two-fold for each 1.0 SD decrease in T-score. Low bone density is not the only risk factor for fracture; also consider factors such as patient's age, frailty or poor health, risk of falling, risk of injury, previous osteoporotic fracture, family history of osteoporosis, cigarette smoking, low body weight, etc. Not everyone with low bone mineral density has osteoporosis; osteomalacia and other metabolic bone disorders should also be considered. Patients who have osteoporosis should be evaluated for specific diseases and conditions (secondary causes) that may cause or contribute to bone loss. The [place] [employer]ocrinologists (AACE) and National Osteoporosis Foundation (NOF) recommend pharmacologic intervention for all postmenopausal women whose T-score is in this range. The patient should follow a healthful lifestyle (good nutrition with adequate calcium and vitamin D, and appropriate weight-bearing exercise). Follow-Up: Consider a repeat BMD and Vertebral Fracture Assessment (VFA) exam in 2 years or sooner if medically necessary, to reassess this patient's status. Reported by: MAY on 01/04/2025 10:47:00 AM. Reviewed, dictated and finalized at location A.
== END 2025-01-04 10:23 | disposition home or self-care (01) ==
LOC: MICIMG 10:23
PROVIDERS: PCP Family Medicine; Visit Provider Family Medicine
DX: M81.0 Age-related osteoporosis without current pathological fracture (principal); M85.89 Other specified disorders of bone density and structure, multiple sites; Z78.0 Asymptomatic menopausal state
CPT/HCPCS: 77080

== ENCOUNTER 2025-01-04 10:25 | Outpatient (CLI) | payer OTHER, SELFPAY ==
--- NOTE | ~2025-01-04 | XR_ITS ---
XR sacrum coccyx min 2V Ordering provider: Sung Temple APRN History: . M46.1 - Sacroiliitis, not elsewhere classified . Comparison: None. FINDINGS: BONES: No acute fracture or dislocation. Degenerative changes of the spine JOINTS: The sacroiliac joint spaces shows bilateral sacroiliacs SOFT TISSUES: Soft tissues are normal. IMPRESSION: No acute osseous abnormality sacrum and coccyx. Reviewed, dictated and finalized at location A.
--- NOTE | ~2025-01-04 | MR_ITS ---
MRI of the lumbar spine Clinical History: Spondylosis Technique: Axial T2-weighted images, and sagittal T1-weighted, T2-weighted, and T2 fat-sat images wer e acquired. Findings: No acute fracture identified. There is chronic mild to moderate compression fracture for L3 . No suspicious bone marrow signal abnormality seen. There are Modic type I signal changes about the L2-L3 disc space. At L1-L2, there is no disc bulge or herniation. There is moderate to advanced facet arthropathy. No c entral canal stenosis or neural foraminal narrowing. At L2-L3, there is diffuse disc bulge with severe facet arthropathy. There is mild central canal sten osis. There is moderate right neural foraminal narrowing, and mild to moderate left neural foraminal narrowing. At L3-L4, there is diffuse disc bulge and severe facet arthropathy. No central canal stenosis. There is mild to moderate right neural foraminal narrowing. Left neural foramen preserved. At L4-L5, there is diffuse disc bulge with severe facet arthropathy. There is moderate to advanced sp inal canal stenosis. There is severe left neural foraminal narrowing. Right neural foramen preserved. At L5-S1, there is no disc bulge or herniation. There is severe facet arthropathy. No central canal s tenosis or neural foraminal narrowing. Paravertebral soft tissues are unremarkable. Impression: Severe spondylosis, as detailed above, worst at L4-L5. Chronic compression fracture deformity of L3. Reviewed, dictated and finalized at [facility]. Impression: Severe spondylosis, as detailed above, worst at L4-L5. Chronic compression fracture deformity of L3.
--- NOTE | ~2025-01-04 | XR_ITS ---
. VIEWS LUMBAR SPINE Ordering provider: Sung Temple, TRANSPLANT NURSE History: . M47.816 - Spondylosis without myelopathy or radiculopathy... . Comparison: None. FINDINGS: VERTEBRAL BODIES:Compression fracture of L3 which may be acute or chronic. MRI evaluation advised. Mi nimal anterolisthesis at the level of L4-L5. Otherwise, No visible fracture or subluxation. Levoscoli osis. Degenerative changes. DISK SPACES: Narrowing of the disc L2-L3, L3-L4 and L4-L5. Multilevel facet joint disease. SOFT TISSUES: Aortic atherosclerotic changes. IMPRESSION: Compression fracture of L3. MRI evaluation advised. Anterolisthesis at the level of L4-L5. Multilevel degenerative disc disease. Reviewed, dictated and finalized at location A.
== END 2025-01-04 10:26 | disposition home or self-care (01) ==
PROVIDERS: PCP Family Medicine; Visit Provider Nurse Practitioner Adult Health
DX: M47.816 Spondylosis without myelopathy or radiculopathy, lumbar region (principal); M48.061 Spinal stenosis, lumbar region without neurogenic claudication; M46.1 Sacroiliitis, not elsewhere classified; M54.16 Radiculopathy, lumbar region
CPT/HCPCS: 72114; 72148; 72220

== ENCOUNTER 2025-01-23 00:16 | Day surgery (SDC) | payer OTHER, SELFPAY ==
[2025-01-18 15:36] VITALS: BMI 30.7
--- OUTSIDE RECORDS SUMMARY | 2025-01-23 00:18 | XMS_ITS ---
Author Name WARNER DENTON M.D. Address [address] [facility] [place] [address] Phone [phone] Organization [facility] ([facility]) Care Team Providers Care Cork Insulator Helper Name Role Phone WARNER DENTON Unavailable [phone] Gina Sun Unavailable [phone] Reason for Referral Not Available Allergies, adverse reactions, alerts No known allergies History of medication use Medication Class Instructions Start Date End Date Atorvastatin Calcium 10 mg Tab Once every other day 19-10-02 No Data Available tiZANidine 4 mg Tab 1 tablet orally ever y 8 hours as needed 2024-09-27 No Data Available [facility] Womens Daily Multivitamin Tab once a day 2024-09-27 No Data Available Biotin 5000 MCG Cap 1 capsule orally daily 2024-09-27 No Data Available Vitamin D3 50 MCG (2000 UT) Cap 1 capsule orally daily 2024-09-27 No Data Available [facility] Vitamin B12 1000 MCG Tab ER 1 tablet orally daily 2024-09-27 No Data Available Tylenol Extra Strength 500 m g Tab two tabs once a day as needed 2024-09-27 No Data Available Hydroxychloroquine Sulfate 2 00 mg Tab two tabs daily 2024-09-27 No Data Available Problem List Problem Status Onset Date Resolved Date Synopsis Hypertension Inactive 2024-09-27 N/A With med and diet Hyperlipidemia Inactive 2024-09-27 N/A With diet and med Neuropathy Active 2024-09-27 N/A Minimal relief with med Anxiety Active 2024-09-27 N/A Med helps but does not completely relieve GERD (gastroesophageal reflux disease) Inactive 2024-09-27 N/A With medication Rheumatoid aortitis Inactive 2024-09-27 N/A Wtih med Lupus (systemic lupus erythematosus) Inactive 2024-09-27 N/A With med Insomnia Inactive 2024-09-27 N/A With medicatio n Disc degeneration, lumbar Active 2024-09-27 N/A Back injections, infusion, OTC meds Spinal stenosis of lumbosacral region Active 2024-09-27 N/A Better contro lled with back injections, nerve burned, and OTC meds Prediabetes Inactive 2024-09-27 N/A With Metformi n and diet Bilateral cataracts Active 2024-09-27 N/A Will have cataracts removed this year Obesity (BMI 30.0-34.9) Active 2024-09-27 N/A R ecommended exercise and proper diet for weight loss of 2 - 2.5 lbs per week Encounters Encounters Type Facility Date of Service Diagnosis/Co mplaint Outpatient visit for evaluation and management of new patient, including medically appropriate examination and moderate level of medical decision making, total time 45-59 minutes [facility] [place] 09/27/2024 Essential (primary) hypertensionHyperlipidemia, unspecifiedSystemic lupus erythematosus, unspecifiedAcute rheumatic endocarditisPrediabetesPolyne uropathy, unspecifiedAnxiety disorder, unspecifiedOther intervertebral disc degeneration, lumbar region without mention of lumbar back pain or lower extremity painSpinal stenosis, lumbosacral regionUnspecified cataractObesity, class 1Gastro-esophageal reflux disease without esophagitisInsomnia, unspecifiedBody mass index (bmi) 32.0-32.9, adult Vital Signs Date of Collection Vitals 2024-09-27 08:00:00 Height - 167.64 cmWe ight - 90.72 kgBody Mass Index (BMI) - 32.28 kg/m2 Social History Sex Female History of Procedures Procedures Service Procedure code Service date Servicing provider Phone# Outpatient visit for evaluation and management of new patient, including medically appropriate examination and moderate level of medical decision making, total time 45-59 minutes 15141 2024-09-27 No Data Available No Data Availa ble Functional Status Functional Category Effective Dates Independent 2024-09-27 Mental Status No Information Assessments Date of Service Assessments 2024-09-27 08:00:00 NeuropathyAnxietyDis c degeneration, lumbarSpinal stenosis of lumbosacral regionBilateral cataractsObesity (BMI 30.0-34.9)PrediabetesHypertensionHyperlipidemiaGERD (gastroesophageal reflux disease)Rheumatoid aortitisLupus (systemic lupus erythematosus)Insomnia Plan of Care Not Available Goals Date Goal 2024-09-27 Recommend a low sodi um diet of less than 1500 mg per day 2024-09-27 Get second Shingles and RSV vaccine 2024-09-27 Recommended to exerc ise 3 - 4 days per week 2024-09-27 Weight loss of 2 - 2 .5 lbs per week 2024-09-27 Reduce red meat, sat urated fat diet. Eat more baked chicken, baked fish, beans, nuts, oatmeal, and avocados. 2024-09-27 Complete advance dir ective and appointment healthcare proxy Health Concerns Date Concern 2024-09-27 [facility] is a service that involves a physician or advanced practice provider conducting comprehensive assessments in your patient s home or virtually to address crucial areas such as chronic conditions, quality gaps, social concerns, fall risk prevention, and various screenings. Please note that your patient will remain attributed to you even though they are participating in this service. If you have any questions, please reach out directly to our team at the phone number above.Noni Alonzo is a 63 y/o (1960) female, was seen today for a [facility] virtual video visit. Patient read rights and responsibilities and consented to treatment. The purpose of this summary is to update you on the patient's current health status and share any relevant findings from the examination. Ms. Alonzo looks well and shows no signs of acute distress. States she lost 75 lbs last year on Ozempic. States she is unable to continue Ozempic due to insurance no longer covering med. Reports medical, surgical, medications, and social history below are accurate. 2024-09-27 Recommendations: 2024-09-27 Neuropathy 2024-09-27 Anxiety 2024-09-27 Disc degeneration, l umbar 2024-09-27 Spinal stenosis of l umbosacral region 2024-09-27 Bilateral cataracts 2024-09-27 Obesity (BMI 30.0-34 .9) 2024-09-27 Prediabetes 2024-09-27 Hypertension 2024-09-27 Hyperlipidemia 2024-09-27 GERD (gastroesophage al reflux disease) 2024-09-27 Rheumatoid aortitis 2024-09-27 Lupus (systemic lupu s erythematosus) 2024-09-27 Insomnia
--- OUTSIDE RECORDS SUMMARY | 2025-01-23 00:19 | XMS_ITS | Patient Health Record ---
Author Organization [facility] Address [address] [facility] [address] [place] [address] Care Team Providers Care Automatic Maintainer Name Role Phone Gina Sun MD Primary Care Provider Unav ailable Jayne Boland Unavailable [phone] Allergies No Known Allergies Results Component Value Reference Range Notes COMPREHENSIVE METABOLIC PANE [place] (35338) Reviewed date:10/23/2024 08:32:26 AM Interpretation:Lab Result Generalized Performing Lab:[facility], [id number] Administration [place] [address] [facility] Notes/Report: FASTING: NO FASTING:NO NON-FASTING; NON-FASTING GLUCOSE 85 65-139 mg/dL Non-fasting reference interval UREA NITROGEN (BUN) 18 7-25 mg/dL CREATININE 1.07 0.50-1.05 mg/dL EGFR 59 > OR = 60 mL/min/1.73m2 BUN/CREATININE RATIO 17 6-22 (calc) SODIUM 138 135-146 mmol/L POTASSIUM 3.9 3.5-5.3 mmol/L CHLORIDE 101 98-110 mmol/L CARBON DIOXIDE 26 20-32 mmol/L CALCIUM 9.8 8.6-10.4 mg/dL PROTEIN, TOTAL 7.4 6.1-8.1 g/dL ALBUMIN 4.6 3.6-5.1 g/dL GLOBULIN 2.8 1.9-3.7 g/dL (calc) ALBUMIN/GLOBULIN RATIO 1.6 1.0-2.5 (calc) BILIRUBIN, TOTAL 0.5 0.2-1.2 mg/dL ALKALINE PHOSPHATASE 66 37-153 U/L AST 20 10-35 U/L ALT 19 6-29 U/L CBC (INCLUDES DIFF/PLT) (639 9) Reviewed date:10/23/2024 08:32:25 AM Interpretation:Lab Result Generalized Performing Lab:YVONNE, [id number] Administration Bandar Chaves [id number] [facility] Notes/Report: NON-FASTING; NON-FASTING FASTING:NO FASTING: NO WHITE BLOOD CELL COUNT 7.4 3.8-10.8 Thousand/ uL RED BLOOD CELL COUNT 3.99 3.80-5.10 Million/uL HEMOGLOBIN 12.8 11.7-15.5 g/dL HEMATOCRIT 39.7 35.0-45.0 % MCV 99.5 80.0-100.0 fL MCH 32.1 27.0-33.0 pg MCHC 32.2 32.0-36.0 g/dL For adults, a slight decrease in the calculated MCHC value (in the range of 30 to 32 g/dL) is most likely not clinically significant; however, it should be interpreted with caution in correlation with other red cell parameters and the patient's clinical condition. RDW 14.2 11.0-15.0 % PLATELET COUNT 309 140-400 Thousand/uL MPV 9.8 7.5-12.5 fL ABSOLUTE NEUTROPHILS 5076 0165-1801 cells/uL ABSOLUTE LYMPHOCYTES 4735 935-8634 cells/uL ABSOLUTE MONOCYTES 370 200-950 cells/uL ABSOLUTE EOSINOPHILS 96 15-500 cells/uL ABSOLUTE BASOPHILS 37 0-200 cells/uL NEUTROPHILS 68.6 LYMPHOCYTES 24.6 MONOCYTES 5.0 EOSINOPHILS 1.3 BASOPHILS 0.5 eGFR Reviewed date:05/22/2024 04:01:52 PM Interpretation: Performing Lab:[facility] , [address] [place] [address]. [place] [address] Notes/Report: eGFR 60 >=60 mL/min/1.73 m2 Normal >/= 90 mL/min/1.73m2 Mildly decreased* 60 - 89 mL/min/1.73m2 Mildly to moderately decreased 45 - 59 mL/min/1.73m2 Moderately to severely decreased 30 - 44 mL/min/1.73m2 Severely decreased 15 - 29 mL/min/1.73m2 Kidney Failure < 15 mL/min/1.73m2 *Relative to young adult level Estimated glomerular filtration rate is determined by the 2020 CKD-EPI equation recommended by the National Kidney Foundation (A Unifying Approach to GFR Estimation: Recommendations of the NKF-ASK Task Force on Reassessing the Inclusion of Race in Diagnosing Kidney Disease, JASN 2020). The CKD-EPI equation should not be used for patients with unstable renal function and has not been validated in children and those over 70. Current interpretive data was last reviewed 2021. Interpretive Data Reference Interval Differential Automated Reviewed date:05/22/2024 03:35:41 PM Interpretation: Performing Lab:[facility] , [facility] [address] Notes/Report: Neut Abs 5.1 1.5-6.5 K/cumm ImmGran Abs 0.0 0.0-0.1 K/cumm Lymphocyte Abs 1.9 0.8-3.3 K/cumm Dougherty Abs 0.5 0.2-0.8 K/cumm Eos Abs 0.2 0.0-0.5 K/cumm Baso Abs 0.0 0.0-0.1 K/cumm Neut Pct 66.5 Interpretive Data Percent cell count reference ranges are not reported, since discordance with absolute values may lead to misinterpretation of CBC data. Current Interpretive Data was last revised on 2017. ImmGran Pct 0.3 Interpretive Data Percent cell count reference ranges are not reported, since discordance with absolute values may lead to misinterpretation of CBC data. Current Interpretive Data was last revised on 2017. Lymph Pct 24.6 Interpretive Data Percent cell count reference ranges are not reported, since discordance with absolute values may lead to misinterpretation of CBC data. Current Interpretive Data was last revised on 2017. Dougherty Pct 6.3 Interpretive Data Percent cell count reference ranges are not reported, since discordance with absolute values may lead to misinterpretation of CBC data. Current Interpretive Data was last revised on 2017. Eos Pct 2.0 Interpretive Data Percent cell count reference ranges are not reported, since discordance with absolute values may lead to misinterpretation of CBC data. Current Interpretive Data was last revised on 2017. Baso Pct 0.3 Interpretive Data Percent cell count reference ranges are not reported, since discordance with absolute values may lead to misinterpretation of CBC data. Current Interpretive Data was last revised on 2017. UA, reflex Micro to Culture Reviewed date:05/22/2024 04:01:53 PM Interpretation: Performing Lab:[facility] , [address] [place] [address]. [facility] [address] Notes/Report: Color, Ur Yellow Yellow Clarity, Ur Clear Clear Spec Grav, Ur 1.013 1.003-1.030 pH, Ur 6.5 Interpretive Data ?Urine pH is affected by diet, medications, systemic acid-base disturbances, and renal tubular function. pH may affect urinary stone formation. For example, urine pH below 6.0 may help reduce the tendency for calcium phosphate stones and pH greater than 6.0 may reduce the tendency for uric acid stone formation. Source: [facility] [employer] Current Interpretive Data was last revised on 2017 Protein, Ur Ql Trace Negative Glucose, Ur Ql Negative Negative Ketones, Ur Negative Negative Bilirubin, Ur Negative Negative Blood, Ur Negative Negative Urobilinogen, Ur <2.0 <2.0 mg/dL Nitrite, Ur Negative Negative Leukocyte Esterase, Ur Negative Negative UA reflex comment See Below Reflex con ditions for microscopic UA and culture not met. Sed Rate Reviewed date:05/22/2024 09:15:42 PM Interpretation: Performing Lab:[facility] , [address] [place] [address]. [facility] [address] Notes/Report: ESR 21 1-30 mm/hr Rheumatoid Factor Reviewed date:05/22/2024 04:01:52 PM Interpretation: Performing Lab:[facility] , [address] [place] [address]. [facility] [address] Notes/Report: RF, Afshin 10 <=15 IUnits/mL QTB Gold Reviewed date:05/25/2024 08:25:49 PM Interpretation: Performing Lab:[facility] , [address] [place] [address]. [facility] [address] Notes/Report: QuantiFERON TB Gold Negative Negative No interferon-gamma response to M. tuberculosis antigens was detected. Latent infection with M. tuberculosis is unlikely. A single negative result does not exclude infection with M. tuberculosis. In patients at high risk for M.tuberculosis infection, a second test should be considered in accordance with the 2017 ATS/IDSA/CDC Clinical Practice Guidelines for Diagnosis of Tuberculosis in Adults and Children [Silverio YORK et. al. Clin. Infect. Dis. 2017;64(2):111-115]. The reference range for the 'TB1 Ag minus Nil Result' and 'TB2 Ag minus Nil Result' is an Interferon-gamma level <0.35 IU/mL. TB-Nil 0.00 TB2-Nil 0.00 Mitogen-Nil 2.30 NIL 0.00 Test Performed by: [facility] [address] [place] [address] Blacksmith Assistant: Austen Tsang Ph.D.; CLIA# [id number] Creatine Kinase Reviewed date:05/22/2024 04:01:52 PM Interpretation: Performing Lab:[facility] , [address] [facility]. [place] [address] Notes/Report: Total CK 106 30-200 Units/L Comprehensive metabolic pane l (CMP) Reviewed date:05/22/2024 04:01:52 PM Interpretation: Performing Lab:[facility] , [address] [facility]. [place] [address] Notes/Report: Sodium 142 135-145 mmol/L Plasma Potassium 3.6 3.3-4.9 mmol/L Chloride 99 97-110 mmol/L Total CO2 27 22-32 mmol/L Anion Gap 16 2-15 mmol/L BUN 22 6-25 mg/dL Creatinine 1.05 0.60-1.10 mg/dL Glucose 96 70-199 mg/dL Interpretive Data Fasting glucose >/= 126 mg/dl is diagnostic for diabetes. Fasting is defined as no caloric intake for at least 8 hours. Fasting glucose between 100 mg/dl to 125 mg/dl is diagnostic of prediabetes. In a patient with classic symptoms of hyperglycemia or hyperglycemic crisis, a random glucose >/= 200 mg/dl is diagnostic for diabetes. In the absence of unequivocal hyperglycemia, results should be confirmed by repeat testing. The classification and Diagnosis of Diabetes Diabetes Care 2021; 46: S19-S40. Current interpretive data was last revised 2022. Total Calcium 10.0 8.5-10.3 mg/dL Total Bilirubin 0.3 0.1-1.2 mg/dL Plasma Total Protein 8.2 6.5-8.5 g/dL Albumin 4.8 3.5-5.0 g/dL Alkaline Phosphatase 97 40-130 Units/L ALT 24 7-45 Units/L AST 25 10-45 Units/L Complement C4 Reviewed date:05/22/2024 04:01:52 PM Interpretation: Performing Lab:[facility] , [address] [place] [address]. [facility] [address] Notes/Report: Complement, C4 35 10-40 mg/dL Complement C3 Reviewed date:05/22/2024 04:01:52 PM Interpretation: Performing Lab:[facility] , [address] [place] [address]. [facility] [address] Notes/Report: Complement, C3 167 90-180 mg/dL CBC w auto diff Reviewed date:05/22/2024 03:35:42 PM Interpretation: Performing Lab:[facility] , [address] [place] [address]. [facility] [address] Notes/Report: WBC 7.6 3.8-9.9 K/cumm Hgb 13.5 11.9-15.5 g/dL Hct 40.6 35.6-45.5 % Platelet Ct 355 150-400 K/cumm MPV 10.4 9.1-12.3 fL RBC 4.45 3.90-5.20 M/cumm MCV 91.2 81.3-96.4 fL MCH 30.3 27.1-33.3 pg MCHC 33.3 32.3-35.7 g/dL RDW CV 14.3 11.1-14.9 % RDW SD 47.8 35.7-48.1 fL NRBC Abs Auto 0.00 0.00-0.01 K/cumm C Reactive Protein Reviewed date:05/22/2024 04:01:52 PM Interpretation: Performing Lab:[facility] , [address] [place] [address]. [facility] [address] Notes/Report: C-Reactive Protein 5.1 <=10.0 mg/L Anti-CCP (Cyclic Citrullinat ed Peptide Ab) Reviewed date:05/23/2024 11:23:29 AM Interpretation: Performing Lab:[facility] , [address] [facility] [address] Notes/Report: CCP Ab <0.5 <=2.9 units/mL Interpretive data Negative: <3 units/mL Positive: > or equal to 3 units/mL Current interpretive data was last revised on 2016. MIGUEL reflex titer pattern GILMER + dsDNA Reviewed date:05/23/2024 01:08:32 PM Interpretation: Performing Lab:[facility] , [address] [facility]. [facility] [address] Notes/Report: MIGUEL, Qual Negative Interpretive Data Normal range for MIGUEL Qualitative Antibody = Negative. 1. MIGUEL is performed using indirect immunofluorescence against HEp-2 cells 2. MIGUEL titers are performed on all positive qualitative results. 3. A significantly positive MIGUEL result is defined as a positive nuclear fluorescence at a titer of 1:80 or greater. 4. 15% of normal people above age 65 have significantly positive MIGUEL results. 5% or less of normal people age 65 or under have significantly positive MIGUEL results. Current interpretive data was last revised on 2020. Testing performed by: [facility], [address] [place]., [address] Reason For Referral Reason PT APPROVED TO SEE Tru BOLAND FOR 30 VISITS Diagnosis 1 Other overlap syndro mes (M35.1) Referring Provider First Name Epifanio Referring Provider Last Name Dino Referred Organization [facility] janette Referred Provider Jayne Boland Referred Address [address],[place], [place],[address], Referred Provider Specialty Rheumatology Referral Priority Routine Medications Medication SIG (Take, Route, Frequency, Duration) Notes Start Date End Date Status Atorvastatin Calcium 10 MG 1 tablet Oral ly Once a day; Duration: 30 day(s) Active Omeprazole 40 MG 1 capsule 1/2 to 1 h our before morning meal Orally Once a day; Duration: 30 day(s) Active Sucralfate 1 GM/10ML 10 mL 1 hour before meals and at bedtime on an empty stomach Orally Four times a day; Duration: 30 day(s) Active Levothyroxine Sodium 88 MCG 1 tablet in the morning on an empty stomach Orally Once a day; Duration: 30 day(s) Active traZODone HCl 50 MG 1 tablet at bedtime as needed Orally Once a day; Duration: 30 day(s) Active Gabapentin 300 MG 1 capsule Orally Onc e a day; Duration: 30 day(s) Active Triamterene-HCTZ 75-50 MG 1 tablet in th e morning Orally Once a day; Duration: 30 day(s) Active Felodipine ER 2.5 MG 1 tablet Orally Onc e a day; Duration: 30 day(s) Active Vitamin D3 25 MCG (1000 UT) 1 capsule Or ally Once a day; Duration: 30 day(s) Active Folic Acid 1 MG 1 MG ORALLY DAILY; Duration: 90 Active Wellbutrin XL 300 MG 1 tablet in the mor pepe Orally Once a day Active Tirzepatide 5 MG/0.5ML as directed Subcutaneous Active busPIRone HCl 5 MG 3 tablet Orally Twic e a day Active tiZANidine HCl 4 MG 1 tablet at bedtime as needed Orally Once a day; Duration: 30 day(s) Active metFORMIN HCl 500 MG 1 tablet with a artemio l Orally Once a day; Duration: 30 day(s) Active traMADol HCl 50 MG 1 tablet as needed Orally every 6 hours prn Active Hydroxychloroquine Sulfate 200 MG TAKE 2 TABLETS BY MOUTH EVERY DAY; Duration: 90 Active Methotrexate Sodium 2.5 MG TAKE 6 TABLET S BY MOUTHONCE WEEKLY; Duration: 90 Active Social History Tobacco Use: Social History Observation Description Date Details (start date - stop date) Former Smoker NA - NA Household Question Answer Notes Marital status: Number of children in household: 0 Tobacco Control (Standard) Question Answer Notes Tobacco use: Former smoker How long has it been since you last smoked? 5-10 years Problems Problem Type SNOMED Code ICD Code Onset Dates Problem Status W/U Status Risk Notes Problem Overlap syndrome (109778235) 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) Active confirmed Problem Overlap syndrome (M35.1) Active confirmed Problem Mixed connective tissue disease (148906644) Mixed connective tissue disease (M35.1) Active confirmed Problem Inflammatory arthritis (M19.90) Active confirmed Problem Raynaud's phenomenon without gangrene (I73.00) Active confirmed Vital Signs Heart Rate 79 /min 01/04/2025 Temperature 97.8 degrees Fahrenheit 01/04/2025 Blood pressure diastolic 80 mm Hg 01/04/2025 Oximetry 99 % 01/04/2025 Height-cm 167.64 cm 01/04/2025 Weight-kg 89.59 kg 01/04/2025 Height 66 in 01/04/2025 Blood pressure systolic 110 mm Hg 01/04/2025 Weight 197.5 lbs 01/04/2025 BMI 31.87 kg/m2 01/04/2025 Encounters Encounter Location Date Provider Diagnosis [facility] [address] [facility] [address] [place] [address] 05/22/2024 Jayne Du Pain in unspecified joint M25.50 ; Mixed connective tissue disease M35.1 ; High risk medication use Z79.899 and Overlap syndrome M35.1 [facility] [address] [facility] [address] [place] [address] 06/05/2024 Jayne Du Inflammatory arthrit is M19.90 ; Decreased GFR R94.4 and Raynaud's phenomenon without gangrene I73.00 [facility] [address] [facility] [address] [place] [address] 10/22/2024 Jayne Du Inflammatory arthrit is M19.90 ; Decreased GFR R94.4 and Raynaud's phenomenon without gangrene I73.00 [facility] [address] [facility] [address] [place] [address] 01/04/2025 Jayne Du Inflammatory arthrit is M19.90 ; Decreased GFR R94.4 and Raynaud's phenomenon without gangrene I73.00 [facility] [address] [facility] [address] [place] [address] 07/05/2024 Jayne Du Assessments Encounter Date Diagnosis (ICD Code) Assessment Notes Treatment Notes Treatment Clinical Notes Section Notes 05/22/2024 Mixed connective tissue disease (ICD-10 - M35.1) 63 year old female with mixed connective tissue disease and overlap syndrome by history. She takes methotrexate, plaquenil, relafen, gabapentin, tizanidine and tramadol. She continues to be symptomatic. Labs and hand Xrays will be ordered. Consider adjusting the dosage of methotrexate. Thank you for referring this patient. cc Dr. Gina 06/05/2024 Inflammatory arthritis (ICD-10 - M19.90) serologies (-), advised to stop nabumetone due to decreased GFR, increase methotrexate to 15mg/wk, return i 2 months 06/05/2024 Decreased GFR (ICD-10 - R94.4) serologies (-), advised to stop nabumetone due to decreased GFR, increase methotrexate to 15mg/wk, return i 2 months 05/22/2024 Pain in unspecified joint (ICD-10 - M25.50) 63 year old female with mixed connective tissue disease and overlap syndrome by history. She takes methotrexate, plaquenil, relafen, gabapentin, tizanidine and tramadol. She continues to be symptomatic. Labs and hand Xrays will be ordered. Consider adjusting the dosage of methotrexate. Thank you for referring this patient. cc Dr. Gina 10/22/2024 Inflammatory arthritis (ICD-10 - M19.90) clinically stable, continue MTX and plaquenil, lab order given, return in 3 months 01/04/2025 Inflammatory arthritis (ICD-10 - M19.90) stable for the most part, continue MTX and plaquenil, knee xray and lab order given, return in 3 months 01/04/2025 Decreased GFR (ICD-10 - R94.4) stable for the most part, continue MTX and plaquenil, knee xray and lab order given, return in 3 months 10/22/2024 Decreased GFR (ICD-10 - R94.4) clinically stable, continue MTX and plaquenil, lab order given, return in 3 months 05/22/2024 High risk medication use (ICD-10 - Z79.899) 63 year old female with mixed connective tissue disease and overlap syndrome by history. She takes methotrexate, plaquenil, relafen, gabapentin, tizanidine and tramadol. She continues to be symptomatic. Labs and hand Xrays will be ordered. Consider adjusting the dosage of methotrexate. Thank you for referring this patient. cc Dr. Gina 06/05/2024 Raynaud's phenomenon without gangrene (ICD-10 - I73.00) serologies (-), advised to stop nabumetone due to decreased GFR, increase methotrexate to 15mg/wk, return i 2 months 05/22/2024 Overlap syndrome (ICD-10 - M35.1) 63 year old female with mixed connective tissue disease and overlap syndrome by history. She takes methotrexate, plaquenil, relafen, gabapentin, tizanidine and tramadol. She continues to be symptomatic. Labs and hand Xrays will be ordered. Consider adjusting the dosage of methotrexate. Thank you for referring this patient. cc Dr. Gina 10/22/2024 Raynaud's phenomenon without gangrene (ICD-10 - I73.00) clinically stable, continue MTX and plaquenil, lab order given, return in 3 months 01/04/2025 Raynaud's phenomenon without gangrene (ICD-10 - I73.00) stable for the most part, continue MTX and plaquenil, knee xray and lab order given, return in 3 months Plan Of Treatment Pending Test Test Name Order Date X ray : Knees, bilateral, A-P standing 0 01/04/2025 X ray : Hands, bilateral 05/22/2024 CBC (INCLUDES DIFF/PLT) (6399) COMPREHENSIVE METABOLIC PANEL (89970) Next Appt Details Provider Name:Jayne Addy, 04/03 01:15:00 PM, [address] [facility] [address], [place], [address], Insurance Providers Payer Name Payer Address Payer Phone Subscriber Number Group Number Insured Name Patient Relationship to Insured Coverage Start Date Coverage End Date [facility] [address] [place] [address] [id number] Noni Alonzo Self - patient is the insured Medical (General) History Medical History History ICD Code connective tissue disease, o verlap syndrome, autoimmune thyroiditis, BPPV, COPD, hypertension, GERD, small fiber neuropathy, spinal stenosis L4-5, headache Surgical History Surgery Date(Month/Year) back surgery
--- OUTSIDE RECORDS SUMMARY | 2025-01-23 00:19 | XMS_ITS | Clinical Summary ---
Author Organization [facility] Address [address] [place] [address] Care Team Providers Care Corporate Executive Chef Name Role Phone Epifanio Sun MD Primary Care Provider [phone] Medications traMADol (ULTRAM) 50 MG tablet Take 1 tablet (50 mg total) by mouth 4 (four) times daily. 3 Active nabumetone (RELAFEN) 500 MG tablet Take 1 tablet (500 mg total) by mouth 2 (two) times daily. Active methotrexate (TREXALL) 2.5 MG tablet Take 1 tablet (2.5 mg total) by mouth once a week. Active gabapentin (NEURONTIN) 300 MG capsule Take 1 capsule (300 mg total) by mouth 2 (two) times a day. 3 Active triamterene-hy droCHLOROthiaz kartik (MAXZIDE) 75-50 MG tablet Take 1 tablet by mouth daily. Active levothyroxine (SYNTHROID) 88 MCG tablet Take 1 tablet (88 mcg total) by mouth every morning. Active felodipine ER (PLENDIL) 2.5 MG TABLET SR 24 HR 24 hr tablet Take 1 tablet (2.5 mg total) by mouth daily. Active folic acid (FOLVITE) 1 MG tablet Take 1 tablet (1 mg total) by mouth daily. Active omeprazole (PRILOSEC) 40 MG capsule Take 1 capsule (40 mg total) by mouth 2 (two) times a day. Active sucralfate (CARAFATE) 1 G tablet Take 1 tablet (1 g total) by mouth 2 (two) times a day. Active tiZANidine (ZANAFLEX) 4 MG tablet Take 1 tablet (4 mg total) by mouth every 6 (six) hours as needed. Active sertraline (ZOLOFT) 50 MG tablet Take 1 tablet (50 mg total) by mouth daily. Active traZODone (DESYREL) 50 MG tablet Take 2 tablets (100 mg total) by mouth nightly at bedtime. Active metFORMIN ER, OSM, (FORTAMET) 500 MG 24 hr tablet Take 1 tablet (500 mg total) by mouth nightly. Active hydroxychloroq uine (PLAQUENIL) 200 MG tablet Take 2 tablets (400 mg total) by mouth nightly. Active busPIRone (BUSPAR) 5 MG tablet Take 1 tablet (5 mg total) by mouth 2 (two) times daily. Takes 2 tabs am Takes 3 tabs HS Active Semaglutide (OZEMPIC, 1 MG/DOSE, SC) Inject 1 mg into the skin see administration instructions. Takes every 10 days. Active Calcium Citrate-Vitami n D 250-5 MG-MCG Tab Take 1 tablet by mouth nightly. Active Cyanocobalamin (VITAMIN B 12) 500 MCG Tab Take 1 tablet by mouth nightly. Active biotin 300 MCG Tab Take 1 tablet (300 mcg total) by mouth daily. Active Social History Tobacco Use Types Packs/Day Years Used Date Smoking Tobacco: Former Cigarettes 2015 Smokeless Tobacco: Never Tobacco Cessation:Counseling Given: Not Answered Alcohol Use Standard Drinks/Week Comments Not Currently 0 (1 standard drink = 0.6 oz pur e alcohol) social Comments No Sex and Gender Information Value Date Recorded Sex Assigned at Not on file Legal Sex Female 9:27 AM CDT Gender Identity Not on file Sexual Orientation Not on file Last Filed Vital Signs Vital Sign Reading Time Taken Comments Blood Pressure 143/83 05/06/2023 1:30 PM QUALITY LIAISON Pulse 66 05/06/2023 1:30 PM QUALITY LIAISON Temperature 36.1 C (97 F) 05/06/2023 1:30 PM QUALITY LIAISON Respiratory Rate 16 05/06/2023 1:30 PM QUALITY LIAISON Oxygen Saturation 97% 05/06/2023 1:30 PM QUALITY LIAISON Inhaled Oxygen Concentration - - Weight 107.7 kg (237 lb 7 oz) 05/06/2023 8:30 AM QUALITY LIAISON Height 167.6 cm (5' 6) 05/06/2023 8:30 AM QUALITY LIAISON Body Mass Index 38.32 05/06/2023 8:30 AM QUALITY LIAISON Plan of Treatment Health Maintenance Due Date Last Done Comments Colorectal Cancer Screening Colonoscopy (10 Years) 1962 Annual Physical 1965 Hepatitis C 1980 DTaP, Tdap and Td Vaccines ( 1 - Tdap) 1981 Mammogram Screening 2002 Zoster Vaccines (1 of 2) 2012 COVID-19 Vaccine (3 - 2023-2 5 season) 2024 05/27/2021, 09/01/2020 Pneumococcal Vaccine: 50+ Years (3 of 3 - PCV20 or PCV21) 06/14/2024 06/14/2019, 09/22/2017 RSV Immunization or 60+ Years (1 - 1-dose 75+ series) 2037 Meningococcal B Vaccine Aged Out No l onger eligible based on patient's age to complete this topic Meningococcal Vaccine Aged Out No anahi dallas eligible based on patient's age to complete this topic RSV Immunizations Under 20 Months Aged Out No longer eligible b ased on patient's age to complete this topic Medical Devices Implanted Type Area Mobility Engineer Device Identifier Shelf Expiration Date Model / Serial / Lot Toe Tac Xpress Fixation System Implanted:Qty: 2 on 05/06/2023 by Fuad Daugherty DPM at [facility] Left: Foot [employer] 12/20/2025 [id number] / / [id number] Toe Tac Hammertoe Fixation System Implanted:Qty: 1 on 05/06/2023 by Fuad Daugherty DPM at [facility] Left: Foot [employer] 02/08/2025 [id number] / / [id number] Insurance Care Teams Corporate Executive Chef Relationship Specialty Start Date End Date Epifanio Sun MD [facility] [address] [address] PCP - General FAMILY PRACTICE 04/29/23
--- OUTSIDE RECORDS SUMMARY | 2025-01-23 00:19 | XMS_ITS | Patient Health Record ---
Author Organization [facility] Address [address] [place], [place] [id number] Care Team Providers Care Program Technician Name Role Phone RASHAUN RIOS Unavailable [phone] Epifanio Sun Unavailable Unavailable Allergies No Known Allergies Reason For Referral No Information Medications Medication SIG (Take, Route, Frequency, Duration) Notes Start Date End Date Status Nabumetone 500 MG TAKE 1 TABLET BY MOUTH TWICE A DAY; Duration: 90 Active dexamethasone phosphate 4 MG/ML Injectable Solution dexamethasone phosphate 4 MG/ML Injectable SolutionOriginal Medicationdexamethasone phosphate 4 MG/ML Injectable Solution *Reorder from iOpener for eRx and Interaction Alerts* 12/28/19 19 Active diclofenac sodium 0.01 MG/MG Topical Gel CUTANEOUS diclofenac sodium 0.01 MG/MG Topical GelOriginal Medicationdiclofenac sodium 0.01 MG/MG Topical Gel *Reorder from iOpener for eRx and Interaction Alerts* 04/24/20 18 Active Medrol Dosepak ORAL Medrol DosepakOr iginal MedicationMedrol Dosepak *Reorder from iOpener for eRx and Interaction Alerts* 02/07/20 18 Active methylPREDNISolone 4 MG as directed Orally one pack 02/08/20 23 Active Immunizations Vaccine Route Administration Date Status Comme nts Influenza, high dose seasonal Unknown 06/13/2023 Admini stered Vital Signs Height-cm 167.64 cm 12/10/2024 Weight-kg 99.79 kg 12/10/2024 Height 66.00 in 12/10/2024 Weight 220 lbs 12/10/2024 BMI 35.51 kg/m2 12/10/2024 Encounters Encounter Location Date Provider Diagnosis [facility] [place] [address] [address] [place] [address] [id number] 03/19/2024 RASHAUN SNOOK Tendinitis of left f oot M77.52 ; Metatarsalgia of left foot M77.42 ; Other specified rheumatoid arthritis, left ankle and foot M06.872 and Left foot pain M79.672 [facility] [place] [address] [place] [address] [id number] 09/03/2024 RASHAUN SNOOK Other specified rheumatoid arthritis, left ankle and foot M06.872 ; Other specified rheumatoid arthritis, right ankle and foot M06.871 ; Pain in right foot M79.671 and Pain in left toe(s) M79.675 [facility] [place] [address] [place] [address] [id number] 12/10/2024 RASHAUN SNOOK Other specified rheumatoid arthritis, right ankle and foot M06.871 ; Other specified rheumatoid arthritis, left ankle and foot M06.872 ; Pain in right ankle and joints of right foot M25.571 ; Pain in left ankle and joints of left foot M25.572 ; Primary osteoarthritis, left ankle and foot M19.072 ; Pain in left toe(s) M79.675 ; Primary osteoarthritis, right ankle and foot M19.071 and Pain in right foot M79.671 Assessments Encounter Date Diagnosis (ICD Code) Assessment Notes Treatment Notes Treatment Clinical Notes Section Notes 03/19/2024 Metatarsalgia of left foot (ICD-10 - M77.42) 03/19/2024 Tendinitis of left foot (ICD-10 - M77.52) 09/03/2024 Other specified rheumatoid arthritis, right ankle and foot (ICD-10 - M06.871) Kenalog Injection: Following skin prep, a total of 3 ccs of a 1-1-1 mix of 0.5% marcaine plain, 1% lidocaine plain, and Kenalog was injected to the right sinus tarsi 09/03/2024 Other specified rheumatoid arthritis, left ankle and foot (ICD-10 - M06.872) Arthritis, Rheumatoid: I discussed anti-inflammatory treatment options and various means of immobilization with the patient. I educated the patient on icing and stretching, supportive shoegear, and the use of orthotic devices and bracing. Kenalog Injection: Following skin prep, a total of 3 ccs of a 1-1-1 mix of 0.5% marcaine plain, 1% lidocaine plain, and Kenalog was injected to the left forefoot. 12/10/2024 Other specified rheumatoid arthritis, right ankle and foot (ICD-10 - M06.871) Kenalog Injection: Following skin prep, a total of 3 ccs of a 1-1-1 mix of 0.5% marcaine plain, 1% lidocaine plain, and Kenalog was injected to the right sinus tarsi 12/10/2024 Other specified rheumatoid arthritis, left ankle and foot (ICD-10 - M06.872) Arthritis, Rheumatoid: I discussed anti-inflammatory treatment options and various means of immobilization with the patient. I educated the patient on icing and stretching, supportive shoegear, and the use of orthotic devices and bracing. Kenalog Injection: Following skin prep, a total of 3 ccs of a 1-1-1 mix of 0.5% marcaine plain, 1% lidocaine plain, and Kenalog was injected to the left forefoot. 12/10/2024 Pain in right ankle and joints of right foot (ICD-10 - M25.571) 09/03/2024 Pain in right foot (ICD-10 - M79.671) 03/19/2024 Other specified rheumatoid arthritis, left ankle and foot (ICD-10 - M06.872) Arthritis, Rheumatoid: I discussed anti-inflammatory treatment options and various means of immobilization with the patient. I educated the patient on icing and stretching, supportive shoegear, and the use of orthotic devices and bracing. Kenalog Injection: Following skin prep, a total of 3 ccs of a 1-1-1 mix of 0.5% marcaine plain, 1% lidocaine plain, and Kenalog was injected to the left forefoot. Dispensed [employer] to offload and pad/protect the metatarsals 03/19/2024 Left foot pain (ICD-10 - M79.672) 09/03/2024 Pain in left toe(s) (ICD-10 - M79.675) 12/10/2024 Pain in left ankle and joints of left foot (ICD-10 - M25.572) 12/10/2024 Primary osteoarthritis, left ankle and foot (ICD-10 - M19.072) 12/10/2024 Pain in left toe(s) (ICD-10 - M79.675) 12/10/2024 Primary osteoarthritis, right ankle and foot (ICD-10 - M19.071) 12/10/2024 Pain in right foot (ICD-10 - M79.671) Plan Of Treatment No Information Insurance Providers Payer Name Payer Address Payer Phone Subscriber Number Group Number Insured Name Patient Relationship to Insured Coverage Start Date Coverage End Date [employer]. [address] [place] [address] [id number] MARYCARMEN HERMAN Self - patient is the insured
[2025-01-23 07:47] VITALS: BP 114/81; PULSE 70; RESP 18; TEMP 36.1; O2SAT 100
[2025-01-23 07:48] VITALS: BMI 30.9
[2025-01-23] MEDS: LACTATED RINGERS 1,000 ML 150 ML IV CONT (08:05)
--- NOTE | 2025-01-23 08:30 | P.PNAN_ITS ---
Anes - Initial Pre Proc Eval Procedure: Operation Date: 01/23/25 09:00 Proposed Procedures p Esophagogastroduodenoscopy - Gerber Sloan MD Date/Time: 01/23/25 08:30 Surgeon: Gerber Sloan MD Pre Op Diagnosis: Dysphagia, unspecified Patient Data Age: 64 Gender: F Height: 1.68 m Weight: 87 kg Last Vital Signs Temp 97 F L 01/23/25 07:47 Pulse 70 01/23/25 07:47 Resp 18 01/23/25 07:47 BP 114/81 01/23/25 07:47 Pulse Ox 100 01/23/25 07:47 O2 Del Method Room Air 01/23/25 07:47 Allergies Allergy/AdvReac Type Severity Reaction Status Date / Time No Known Allergies Allergy Verified 01/23/25 07:43 Home Medications ?Medication ?Instructions ?Recorded ?Confirmed ?Type nebulizers #1 ea 10/12/19 01/16/25 Rx vitamin B complex (B 1 tablet PO WEEKLY 08/28/20 01/23/25 History Complex-Vitamin B12 tablet) cholecalciferol (vitamin D3) 125 125 mcg PO DAILY 12/23/20 01/23/25 History mcg (5,000 unit) capsule tramadol 50 mg tablet 50 mg PO Q6H PRN pain 04/26/23 01/18/25 History sucralfate 1 gram tablet See Rx Instructions .Route 08/29/23 01/23/25 Rx .COMPLEX #360 tabs folic acid 1 mg tablet 1 mg PO DAILY #90 tabs 10/26/23 01/23/25 Rx hydroxychloroquine 200 mg tablet 400 mg (2 x 200 mg) PO DAILY #180 11/01/23 01/23/25 Rx (Plaquenil) tabs methotrexate sodium 2.5 mg tablet 12.5 mg (5 x 2.5 mg) PO WEEKLY #60 11/01/23 01/18/25 Rx tabs tizanidine 4 mg tablet 4 mg PO DAILY PRN Pain 11/01/23 01/18/25 History atorvastatin 10 mg tablet 10 mg PO DAILY #90 tabs 11/28/23 01/23/25 Rx felodipine 2.5 mg tablet,extended See Rx Instructions .Route 05/08/24 01/23/25 Rx release 24 hr .COMPLEX #90 tabs gabapentin 300 mg capsule 300 mg PO DAILY #90 caps 05/08/24 01/23/25 Rx metformin 500 mg tablet,extended 500 mg PO DAILY #90 tabs 05/08/24 01/23/25 Rx release 24 hr trazodone 50 mg tablet See Rx Instructions .Route 07/09/24 01/23/25 Rx .COMPLEX #180 tabs semaglutide 0.25 mg or 0.5 mg (2 0.5 mg (0.736 mL) subcut WEEKLY #3 09/12/24 01/18/25 Rx mg/3 mL) subcutaneous pen injector mL (Ozempic) triamterene 75 See Rx Instructions .Route 09/28/24 01/23/25 Rx mg-hydrochlorothiazide 50 mg tablet .COMPLEX #90 tabs bupropion HCl 300 mg 24 hr tablet, 300 mg PO QAM #90 tabs 12/19/24 01/23/25 Rx extended release omeprazole 40 mg capsule,delayed See Rx Instructions .Route 01/01/25 01/23/25 Rx release .COMPLEX #180 caps levothyroxine 88 mcg tablet 88 mcg PO DAILY #90 tabs 01/14/25 01/23/25 Rx ondansetron HCl 4 mg tablet 4 mg PO Q8H PRN nausea and vomiting 01/14/25 01/18/25 History buspirone 5 mg tablet See Rx Instructions .Route 01/21/25 01/23/25 Rx .COMPLEX #540 tabs Patient hx anesthesia problems: none Family hx anesthesia problems: none Results Review: All pre-operative results and documents have been reviewed as part of the pre- operative evaluation. [facility] Past Medical History Medical History Sacroiliitis Lumbar stenosis 7.12.25Lumbar MR: Severe spondylosis, as detailed above, worst at L4-L5.(At L4-L5, there is diffuse disc bulge with severe facet arthropathy. Moderate to advanced spinal canal stenosis. There is severe left neural foraminal narrowing. Right neural foramen preserved). Chronic compression fracture deformity of L3. Lumbar spondylosis Lumbar radiculopathy Small fiber neuropathy Spinal stenosis at L4-L5 level Encounter for colonoscopy in patient with family history of colon polyps Foot pain Vertigo Headache Abnormal colonoscopy 2016 polyp. repeat in 5 years Anosmia BPPV (benign paroxysmal positional vertigo) Essential hypertension Prediabetes Hypothyroid Human papillomavirus Autoimmune thyroiditis COPD (chronic obstructive pulmonary disease) with acute bronchitis Gastro-esophageal reflux disease without esophagitis Surgical History Surgical History History of back surgery 06.15.20 lumbar facet branch nerve ablation Family History Family History Mother Hypertension Patient's mother is Father Family history of cardiovascular disease Family history of Alzheimer's disease Sibling Family history of cardiovascular disease Grandparent Family history of Alzheimer's disease Other Colon polyp Social History Social History Smoking packs per day: 1 Smoking cigarettes per day: 20.0 Years smoked: 20 Smoking pack-years: 20.00 Smoking status: Former smoker Tobacco type: cigarettes Smoking end date: 06/27/13 Alcohol intake: current Drinks per week: 4 Alcohol use details: once a week Substance use: never Substance use type: does not use Do You Feel Safe in your Home?: Yes Lack of Transportation: No Lack of Food: Never True Current Housing: I Have Housing Concerned About Future Housing: No Difficulty Paying Gas/Electric Bills: No Difficulty Paying for Meds: No Currently Unemployed: No Education: Bachelor's Degree Difficulty w/ Childcare or Family Care: No Living arrangements: with family Spiritual care concerns: No Anes - Eval Final PreProcedure Day of Procedure 01/23/25 08:30 Patient weight: obese Heart: regular rate and rhythm Lungs: clear to auscultation Airway: Mallampati scale class II Neurological: alert and oriented Last oral intake: >/= 8 hours ASA classification: III Emergent: no Anesthetic plan: proceed Anesthesia type and monitoring: general GIVS and standard monitoring Results Review: All pre-operative results and documents have been reviewed as part of the pre- operative evaluation. Informed Consent: The patient's anesthetic plan and its attendant risks and benefits were discussed with the patient/family/POA. Questions were solicited and answers provided to the satisfaction of the patient/family/POA.
--- NOTE | 2025-01-23 08:56 | PM.HPGS ---
History of Present Illness History of Present Illness Consent: Risks, benefits, and alternatives have been discussed and questions answered. Patient agrees to proceed with procedure. Chief complaint: Dysphagia, unspecified Narrative: Noni Alonzo is a 64 year old female with gerd on ppi for years but just recently difficulty after swallowing pills, she went to see ENT. Review of Systems Review of Systems: All systems reviewed & are unremarkable except as noted in HPI and below PMFSH Past Medical History Medical History Sacroiliitis Lumbar stenosis 7..25Lumbar MR: Severe spondylosis, as detailed above, worst at L4-L5.(At L4-L5, there is diffuse disc bulge with severe facet arthropathy. Moderate to advanced spinal canal stenosis. There is severe left neural foraminal narrowing. Right neural foramen preserved). Chronic compression fracture deformity of L3. Lumbar spondylosis Lumbar radiculopathy Small fiber neuropathy Spinal stenosis at L4-L5 level Encounter for colonoscopy in patient with family history of colon polyps Foot pain Vertigo Headache Abnormal colonoscopy 2016 polyp. repeat in 5 years Anosmia BPPV (benign paroxysmal positional vertigo) Essential hypertension Prediabetes Hypothyroid Human papillomavirus Autoimmune thyroiditis COPD (chronic obstructive pulmonary disease) with acute bronchitis Gastro-esophageal reflux disease without esophagitis Surgical History Surgical History History of back surgery 06.15.20 lumbar facet branch nerve ablation Family History Family History Mother Hypertension Patient's mother is Father Family history of cardiovascular disease Family history of Alzheimer's disease Sibling Family history of cardiovascular disease Grandparent Family history of Alzheimer's disease Other Colon polyp Social History Social History Smoking packs per day: 1 Smoking cigarettes per day: 20.0 Years smoked: 20 Smoking pack-years: 20.00 Smoking status: Former smoker Tobacco type: cigarettes Smoking end date: 06/27/13 Alcohol intake: current Drinks per week: 4 Alcohol use details: once a week Substance use: never Substance use type: does not use Do You Feel Safe in your Home?: Yes Lack of Transportation: No Lack of Food: Never True Current Housing: I Have Housing Concerned About Future Housing: No Difficulty Paying Gas/Electric Bills: No Difficulty Paying for Meds: No Currently Unemployed: No Education: Bachelor's Degree Difficulty w/ Childcare or Family Care: No Living arrangements: with family Spiritual care concerns: No Meds Home Medications and Allergies Home Medications ?Medication ?Instructions ?Recorded ?Confirmed ?Type nebulizers #1 ea 10/12/19 01/16/25 Rx vitamin B complex (B 1 tablet PO WEEKLY 08/28/20 01/23/25 History Complex-Vitamin B12 tablet) cholecalciferol (vitamin D3) 125 125 mcg PO DAILY 12/23/20 01/23/25 History mcg (5,000 unit) capsule tramadol 50 mg tablet 50 mg PO Q6H PRN pain 04/26/23 01/18/25 History sucralfate 1 gram tablet See Rx Instructions .Route 08/29/23 01/23/25 Rx .COMPLEX #360 tabs folic acid 1 mg tablet 1 mg PO DAILY #90 tabs 10/26/23 01/23/25 Rx hydroxychloroquine 200 mg tablet 400 mg (2 x 200 mg) PO DAILY #180 11/01/23 01/23/25 Rx (Plaquenil) tabs methotrexate sodium 2.5 mg tablet 12.5 mg (5 x 2.5 mg) PO WEEKLY #60 11/01/23 01/18/25 Rx tabs tizanidine 4 mg tablet 4 mg PO DAILY PRN Pain 11/01/23 01/18/25 History atorvastatin 10 mg tablet 10 mg PO DAILY #90 tabs 11/28/23 01/23/25 Rx felodipine 2.5 mg tablet,extended See Rx Instructions .Route 05/08/24 01/23/25 Rx release 24 hr .COMPLEX #90 tabs gabapentin 300 mg capsule 300 mg PO DAILY #90 caps 05/08/24 01/23/25 Rx metformin 500 mg tablet,extended 500 mg PO DAILY #90 tabs 05/08/24 01/23/25 Rx release 24 hr trazodone 50 mg tablet See Rx Instructions .Route 07/09/24 01/23/25 Rx .COMPLEX #180 tabs semaglutide 0.25 mg or 0.5 mg (2 0.5 mg (0.736 mL) subcut WEEKLY #3 09/12/24 01/18/25 Rx mg/3 mL) subcutaneous pen injector mL (Ozempic) triamterene 75 See Rx Instructions .Route 09/28/24 01/23/25 Rx mg-hydrochlorothiazide 50 mg tablet .COMPLEX #90 tabs bupropion HCl 300 mg 24 hr tablet, 300 mg PO QAM #90 tabs 12/19/24 01/23/25 Rx extended release omeprazole 40 mg capsule,delayed See Rx Instructions .Route 01/01/25 01/23/25 Rx release .COMPLEX #180 caps levothyroxine 88 mcg tablet 88 mcg PO DAILY #90 tabs 01/14/25 01/23/25 Rx ondansetron HCl 4 mg tablet 4 mg PO Q8H PRN nausea and vomiting 01/14/25 01/18/25 History buspirone 5 mg tablet See Rx Instructions .Route 01/21/25 01/23/25 Rx .COMPLEX #540 tabs Allergies Allergy/AdvReac Type Severity Reaction Status Date / Time No Known Allergies Allergy Verified 01/23/25 07:43 Vital Signs Vital Signs - 24 hr 01/23/25 07:47 Temperature 97 F L Pulse Rate 70 Respiratory Rate 18 Blood Pressure 114/81 Pulse Oximetry 100 Oxygen Delivery Room Air Exam Const: General: comfortable and no acute distress HENMT: Face/Nose/Sinus: Normal nares present Eyes: General: appearance normal, both eyes and all related structures Neck: Neck: no JVD Resp: Auscultation: clear to auscultation bilaterally Cardio: Rate: regular rate Rhythm: regular rhythm GI: Inspection: non-distended GI Palp: Yes Soft to palpation Skin: General skin exam: normal color Neuro: Speech: normal speech Extrem: General: normal to inspection Psych: Mental Status: mental status grossly normal Assessment and Plan Assessment and plan (1) Dysphagia: Code(s): R13.10 - Dysphagia, unspecified Status: Acute Assessment and Plan: egd to assess (2) Gastroesophageal reflux disease: Qualifiers: Esophagitis presence: with esophagitis Qualified Code(s): K21.0 - Gastro-esophageal reflux disease with esophagitis Code(s): K21.9 - Gastro-esophageal reflux disease without esophagitis Status: Acute
--- NOTE | 2025-01-23 09:04 | S_PTH ---
PATIENT: Noni Alonzo LOC: [facility]#:[id number] AGE/SX: 64/F ROOM: RE01/23/[address]: Gerber Sloan MD : 1960 BED: DIS: 01/23/2025 SPEC #: [id number] RECD: 01/23/25 10:51 STATUS: BHAVESH REPrasad #: [id number] NOVA: 01/23/25 09:[address]: Gerber Sloan DEPT: [facility] Surgical RECD BY: Alla Roth ENTERED: 01/23/25 10:51 SP TYPE: Surgical OTHR DR: Gina Sun MD Tissues: A - Esophageal Biopsy B - Gastric Biopsy Procedures: Hematoxylin and Eosin Stain Gross and Microscopic Level 4
[2025-01-23 09:08] VITALS: BP 94/59; PULSE 59; RESP 18; O2SAT 97
[2025-01-23 09:18] VITALS: BP 95/61; PULSE 58; RESP 18; O2SAT 100
[2025-01-23 09:28] VITALS: BP 106/66; PULSE 60; RESP 18; O2SAT 100
== END 2025-01-23 09:38 | disposition home or self-care (01) ==
PROVIDERS: PCP Family Medicine; Visit Provider Internal Medicine Gastroenterology
PROC: 0DJ08ZZ Inspection of Upper Intestinal Tract, Via Natural or Artificial Opening Endoscopic (ICD-10-PCS; CPT 43239; principal; 2025-01-23 09:00)
DX: K21.9 Gastro-esophageal reflux disease without esophagitis (principal); I10 Essential (primary) hypertension; R73.03 Prediabetes; E06.3 Autoimmune thyroiditis; J44.9 Chronic obstructive pulmonary disease, unspecified; M48.061 Spinal stenosis, lumbar region without neurogenic claudication; M43.06 Spondylolysis, lumbar region; E66.9 Obesity, unspecified; Z68.31 Body mass index [BMI] 31.0-31.9, adult; Z79.891 Long term (current) use of opiate analgesic; Z79.84 Long term (current) use of oral hypoglycemic drugs; Z79.85 Long-term (current) use of injectable non-insulin antidiabetic drugs; Z79.51 Long term (current) use of inhaled steroids; Z98.1 Arthrodesis status; Z87.891 Personal history of nicotine dependence; Z83.719 Family history of colon polyps, unspecified; Z82.49 Family history of ischemic heart disease and other diseases of the circulatory system
CPT/HCPCS: 43239; 82948; 88305; J2003; J2704; J7120

== ENCOUNTER 2025-02-12 07:32 | Day surgery (SDC) | payer OTHER, SELFPAY ==
[2025-02-08 11:13] VITALS: BMI 31.4
--- NOTE | ~2025-02-12 | XR_ITS ---
EXAM: XR fluoroscopy no charge - 02/12/2025 8:50 CDT History: 64 years old Female with DIAG/PROG L3,L4,L5 MEDIAL BRANCH/DORSAL RAMUS NERVE BLK Fluoroscopy time: 25.8 seconds FINDINGS/ IMPRESSION: Multiple fluoroscopic images of nerve root injections. Reviewed, dictated and finalized at location A.
--- OUTSIDE RECORDS SUMMARY | 2025-02-12 07:53 | XMS_ITS ---
Author Name WARNER DENTON M.D. Address [address] [facility] [address] [place] [address] Phone [phone] Organization [facility] ([facility] [place]) Care Team Providers Care Machine Tool Builder Name Role Phone WARNER DENTON Unavailable [phone] Gina Sun Unavailable [phone] Reason for Referral Not Available Allergies, adverse [...] medical decision making, total time 45-59 minutes [id number] 2024-09-27 No Data Available No Data Availa [...]
--- OUTSIDE RECORDS SUMMARY | 2025-02-12 07:54 | XMS_ITS | Patient Health Record ---
Author Organization [facility] Address [address] [place], [place] [id number] Care Team Providers Care Investigation Division Sergeant Name Role Phone RASHAUN RIOS Unavailable [phone] Epifanio Sun Unavailable Unavailable Allergies No Known Allergies Reason For Referral No Information Medications Medication SIG (Take, Route, Frequency, Duration) Notes Start Date End Date Status Nabumetone 500 MG TAKE 1 TABLET BY MOUTH TWICE A DAY; Duration: 90 Active dexamethasone phosphate 4 MG/ML Injectable Solution dexamethasone phosphate 4 MG/ML Injectable SolutionOriginal Medicationdexamethasone phosphate 4 MG/ML Injectable Solution *Reorder from GENWI for eRx and Interaction Alerts* 12/28/19 19 Active diclofenac sodium 0.01 MG/MG Topical Gel CUTANEOUS diclofenac sodium 0.01 MG/MG Topical GelOriginal Medicationdiclofenac sodium 0.01 MG/MG Topical Gel *Reorder from GENWI for eRx and Interaction Alerts* 04/24/20 18 Active Medrol Dosepak ORAL Medrol DosepakOr iginal MedicationMedrol Dosepak *Reorder from GENWI for eRx and Interaction Alerts* 02/07/20 18 [...] Location Date Provider Diagnosis [facility] [place] [address] [place] [address] [id number] 03/19/2024 RASHAUN SNOOK Tendinitis of left f oot M77.52 ; Metatarsalgia of left foot M77.42 ; Other specified rheumatoid arthritis, left ankle and foot M06.872 and Left foot pain M79.672 [facility] [place] [address] [place] [address] [id number] 09/03/2024 RASHAUN SNOOK Other specified rheumatoid arthritis, left ankle and foot M06.872 ; Other specified rheumatoid arthritis, right ankle and foot M06.871 ; Pain in right foot M79.671 and Pain in left toe(s) M79.675 [facility] [place] [address] [place] [address] [id number] 12/10/2024 RASHAUN SNOOK Other specified rheumatoid arthritis, [...] foot (ICD-10 - M79.671) Plan Of Treatment Next Appt Details Provider Name:RASHAUN RIOS, 10:50:00 AM, [address], [facility], [place], [place], [phone], Insurance Providers Payer Name Payer Address Payer Phone Subscriber Number Group Number Insured Name Patient Relationship to Insured Coverage Start Date Coverage End Date [email or web address]. [address] [place] [address] [id number] MARYCARMEN HERMAN Self - patient is the insured
--- OUTSIDE RECORDS SUMMARY | 2025-02-12 07:54 | XMS_ITS | Patient Health Record ---
Author Organization [facility] candelaria Address [address] [facility] [address] [place] [address] Care Team Providers Care Cook Chief Name Role Phone Gina Sun MD Primary Care Provider Unav ailable Jayne Boland Unavailable [phone] Allergies No Known Allergies Results Component Value Reference Range Notes eGFR Reviewed date:05/22/2024 04:01:52 PM Interpretation: Performing Lab:[facility] , [address] [facility]. [facility] [address] Notes/Report: eGFR 60 >=60 mL/min/1.73 m2 Normal [...] Automated Reviewed date:05/22/2024 03:35:41 PM Interpretation: Performing Lab:[facility] , [address] [facility]. [place] [address] Notes/Report: Neut Abs 5.1 1.5-6.5 K/cumm ImmGran Abs 0.0 0.0-0.1 K/cumm Lymphocyte Abs 1.9 0.8-3.3 K/cumm Stephens Abs 0.5 0.2-0.8 K/cumm Eos Abs 0.2 [...] Interpretive Data was last revised on 2017. Stephens Pct 6.3 Interpretive Data Percent cell count [...] Interpretive Data was last revised on 2017. COMPREHENSIVE METABOLIC PANE L (71337) Reviewed date:10/23/2024 08:32:26 AM Interpretation:Lab Result Generalized Performing Lab:[facility], [facility]kh[facility] [address] Chaves [id number] [facility] Vo Notes/Report: FASTING: NO FASTING:NO NON-FASTING; NON-FASTING GLUCOSE [...] 08:32:25 AM Interpretation:Lab Result Generalized Performing Lab:[facility], [facility] [place] [id number] [facility] Notes/Report: NON-FASTING; NON-FASTING FASTING:NO FASTING: NO [...] MPV 9.8 7.5-12.5 fL ABSOLUTE NEUTROPHILS 5076 2875-2530 cells/uL ABSOLUTE LYMPHOCYTES 7903 066-4665 cells/uL ABSOLUTE MONOCYTES 370 200-950 cells/uL ABSOLUTE EOSINOPHILS 96 15-500 cells/uL ABSOLUTE BASOPHILS 37 0-200 cells/uL NEUTROPHILS 68.6 LYMPHOCYTES 24.6 MONOCYTES 5.0 EOSINOPHILS 1.3 BASOPHILS 0.5 UA, reflex Micro to Culture Reviewed date:05/22/2024 04:01:53 PM Interpretation: Performing Lab:[facility] , [address] [place] [address]. [facility] [address] Notes/Report: Color, Ur Yellow Yellow Clarity, Ur [...] tendency for uric acid stone formation. Source: [facility] Current Interpretive Data was last revised on [...] Rate Reviewed date:05/22/2024 09:15:42 PM Interpretation: Performing Lab:[facility] , [address] [place] [address]. [facility] [address] Notes/Report: ESR 21 1-30 mm/hr Rheumatoid Factor Reviewed date:05/22/2024 04:01:52 PM Interpretation: Performing Lab:[facility] , [address] [place] [address]. [facility] [address] Notes/Report: RF, Afshin 10 <=15 IUnits/mL QTB Gold Reviewed date:05/25/2024 08:25:49 PM Interpretation: Performing Lab:[facility] , [address] [place] [address]. [facility] [address] Notes/Report: QuantiFERON TB Gold Negative Negative No [...] Mitogen-Nil 2.30 NIL 0.00 Test Performed by: [facility] [address] [place] [address] Gas Regulator Repairer: Austen Tsang Ph.D.; CLIA# [id number] Creatine Kinase Reviewed date:05/22/2024 04:01:52 PM Interpretation: Performing Lab:[facility] , [address] [facility]. [place] [address] Notes/Report: Total CK 106 30-200 Units/L Comprehensive metabolic pane l (CMP) Reviewed date:05/22/2024 04:01:52 PM Interpretation: Performing Lab:[facility] , [address] [facility]. [place] [address] Notes/Report: Sodium 142 135-145 mmol/L Plasma Potassium [...] C4 Reviewed date:05/22/2024 04:01:52 PM Interpretation: Performing Lab:[facility] , [address] [place] [address]. [facility] [address] Notes/Report: Complement, C4 35 10-40 mg/dL Complement C3 Reviewed date:05/22/2024 04:01:52 PM Interpretation: Performing Lab:[facility] , [address] [place] [address]. [facility] [address] Notes/Report: Complement, C3 167 90-180 mg/dL CBC w auto diff Reviewed date:05/22/2024 03:35:42 PM Interpretation: Performing Lab:[facility] , [address] [place] [address]. [facility] [address] Notes/Report: WBC 7.6 3.8-9.9 K/cumm Hgb 13.5 11.9-15.5 g/dL Hct 40.6 35.6-45.5 % Platelet Ct 355 150-400 K/cumm MPV 10.4 9.1-12.3 fL RBC 4.45 3.90-5.20 M/cumm MCV 91.2 81.3-96.4 fL MCH 30.3 27.1-33.3 pg MCHC 33.3 32.3-35.7 g/dL RDW CV 14.3 11.1-14.9 % RDW SD 47.8 35.7-48.1 fL NRBC Abs Auto 0.00 0.00-0.01 K/cumm C Reactive Protein Reviewed date:05/22/2024 04:01:52 PM Interpretation: Performing Lab:[facility] , [address] [place] [address]. [facility] [address] Notes/Report: C-Reactive Protein 5.1 <=10.0 mg/L Anti-CCP (Cyclic Citrullinat ed Peptide Ab) Reviewed date:05/23/2024 11:23:29 AM Interpretation: Performing Lab:[facility] , [address] [facility] [facility] [address] Notes/Report: CCP Ab <0.5 <=2.9 units/mL Interpretive data Negative: <3 units/mL Positive: > or equal to 3 units/mL Current interpretive data was last revised on 2016. MIGUEL reflex titer pattern GILMER + dsDNA Reviewed date:05/23/2024 01:08:32 PM Interpretation: Performing Lab:[facility] , [address] [facility]. [facility] [address] Notes/Report: MIGUEL, Qual Negative Interpretive Data Normal [...] last revised on 2020. Testing performed by: [facility], [address] [place]., [address] Reason For Referral Reason PT APPROVED TO SEE Tru BOLAND FOR 30 VISITS Diagnosis 1 Other overlap syndro mes (M35.1) Referring Provider First Name Epifanio Referring Provider Last Name Dino Referred Organization [facility] janette Referred Provider Jayne Boland Referred Address [address],[place], [place],[address], Referred Provider Specialty Rheumatology Referral Priority Routine [...] W/U Status Risk Notes Problem Overlap syndrome (992310480) 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) Active confirmed Problem Overlap syndrome (161602362) Overlap syndrome (M35.1) Active confirmed Problem Mixed connective tissue disease (095313084) Mixed connective tissue disease (M35.1) Active confirmed Problem Inflammatory arthritis (8260141) Inflammatory arthritis (M19.90) Active confirmed Problem Raynaud's disease (288055582) Raynaud's phenomenon without gangrene (I73.00) Active confirmed Vital Signs Heart Rate 79 /min 01/04/2025 Temperature 97.8 degrees Fahrenheit 01/04/2025 Blood pressure diastolic 80 mm Hg 01/04/2025 Oximetry 99 % 01/04/2025 Height-cm 167.64 cm 01/04/2025 Weight-kg 89.59 kg 01/04/2025 Height 66 in 01/04/2025 Blood pressure systolic 110 mm Hg 01/04/2025 Weight 197.5 lbs 01/04/2025 BMI 31.87 kg/m2 01/04/2025 Encounters Encounter Location Date Provider Diagnosis [facility] [address] [facility] [address], [place] [address] 05/22/2024 Jayne Du Pain in unspecified joint M25.50 ; Mixed connective tissue disease M35.1 ; High risk medication use Z79.899 and Overlap syndrome M35.1 [facility] [address] [facility] [facility] [address] [place] [address] 06/05/2024 Jayne Du Inflammatory arthrit is M19.90 ; Decreased GFR R94.4 and Raynaud's phenomenon without gangrene I73.00 [facility] [address] [facility] [address] [place] [address] 10/22/2024 Jayne Du Inflammatory arthrit is M19.90 ; Decreased GFR R94.4 and Raynaud's phenomenon without gangrene I73.00 [facility] [address] [facility] [address] [place] [address] 01/04/2025 Jayne Du Inflammatory arthrit is M19.90 ; Decreased GFR R94.4 and Raynaud's phenomenon without gangrene I73.00 [facility] [address] [facility] [address] [place] [address] 07/05/2024 Jayne Du Assessments Encounter Date Diagnosis [...] CBC (INCLUDES DIFF/PLT) (6399) COMPREHENSIVE METABOLIC PANEL (22238) Next Appt Details Provider Name:Jayne Boland, 04/03 01:15:00 PM, [address], [place], [address], Insurance Providers Payer Name Payer Address Payer Phone Subscriber Number Group Number Insured Name Patient Relationship to Insured Coverage Start Date Coverage End Date [facility] [address] [place] [id number] Noni Alonzo Self - patient is the insured Medical (General) History Medical History History ICD Code connective tissue disease, o verlap syndrome, autoimmune thyroiditis, BPPV, COPD, hypertension, GERD, small fiber neuropathy, spinal stenosis L4-5, headache Surgical History Surgery Date(Month/Year) back surgery
[2025-02-12 08:06] VITALS: BP 119/86; PULSE 65; RESP 16; TEMP 36.7; O2SAT 98
--- NOTE | 2025-02-12 08:45 | WPDHPUPDATE1 ---
History and Physical Update Update Date/Time: 02/12/25 08:45 Patient presents for diagnostic/prognostic blocks of the bilateral L3, L4, L5 medial branches/dorsal rami (# 1) addressing the bilateral L4-5, L5-S1 facet joints under fluoroscopic guidance with contrast control. History and Physical has been reviewed, including an updated exam of the patient. There are NO changes in the patient's condition. Risks, benefits, and alternatives have been discussed and questions answered. Patient agrees to proceed with procedure.
--- NOTE | 2025-02-12 08:46 | W.PM.PROC2 ---
Procedure Note - Detailed Date of Procedure 02/12/25 Pre-op Diagnosis Lumbar Spondylosis w/o Myelopathy or Radiculop. Post-op Diagnosis Same Procedure Performed Diagnostic bilateral Lumbar Medial Branch[/Dorsal Ramus] Blocks at [L3, L4, L5] Treating the bilateral [L4-5, L5-S1] Facet Joints Under Fluoroscopic Guidance and with Contrast Control. (4 levels blocked). Surgeon Ryder Nelson MD Surgery Technician None. Anesthesia Local Description of Procedure INFORMED CONSENT: Risks, benefits and alternatives to the procedure were discussed in detail with the patient who expressed explicit understanding and consent to proceed. Patient was informed verbally and in written form regarding the risks associated with the procedure including the low risk of serious infection, bleeding/bruising, allergic reaction, nerve or organ injury, paralysis, procedural site pain or discomfort, worsening pain and/or mobility, failure to treat and/or disfigurement. The patient expressed explicit understanding and consent to proceed. All materials required for the procedure were available prior to procedure start. Site and side were marked prior to procedure and confirmed in the presence of the patient. PROCEDURE IN DETAIL: The patient was brought to the procedural suite and placed in the prone position. Patient was made comfortable with use of pillows under the head/chest, hips and ankles. Skin overlying the injection site on the affected side(s) was prepared broadly with ChloraPrep applicator and draped in a sterile manner. Aseptic technique was used throughout. The endplates of the vertebral bodies at the site(s) of interest were aligned in the AP view. Ipsilateral oblique angulation was utilized to optimize visualization of the intersection between the superior articulating process and transverse process at each target site. Local anesthesia was established by infiltration with approximately 5 mL of 1% lidocaine via a 1-1/2 inch 27-gauge needle. A 25-gauge 5.0 inch Quincke spinal needle was advanced until the needle tip contacted periosteum at the target site, right L3. Lateral view was utilized to confirm the appropriate placement of the needle tip just anterior to the facet line and superior to the pedicle. In the Lateral view, 0.25 mL of Omnipaque 300 contrast medium was injected after negative aspiration for CSF, blood or other bodily fluid, showing appropriate extra-articular spread of contrast without evidence of intravascular, foraminal or intrathecal placement. A 0.5 mL solution of 0.5% PF bupivacaine was injected after negative repeat aspiration. Appropriate spread of the injectate was confirmed with washout of previously injected contrast. No parasthesias were elicited. Needle was removed completely intact without difficulty. The same exact procedure was repeated for all remaining levels on the ipsilateral side, right L4, L5 medial branches/dorsal ramus, modified as necessary to accommodate for the new target location with identical findings and results and no evidence of complication. The same exact procedure was repeated for all remaining levels on the contralateral side, left L3, L4, L5 medial branches/dorsal ramus, modified as necessary to accommodate for the new target location with identical findings and results and no evidence of complication. Images were saved and documented in the patient chart. Patient's skin was cleaned and sterile bandage applied. The patient tolerated the procedure well. The patient was transported to the recovery area in stable condition where they were observed for an appropriate amount of time prior to discharge, without evidence of complication. Patient was instructed on the appropriate completion of a pain diary over the next 12-24 hours. The patient was instructed to avoid excessive activity for the next 48 hours, including climbing and frequent use of stairs. Showers only for 48 hours. They were instructed not to drive or operate heavy machinery for 24 hours. They are to monitor for severe headaches, fevers, chills, night sweats, erythema/swelling at the site or any other signs of infection, bleeding/bruising, bowel or bladder changes as well as new pain, weakness or numbness in the upper or lower extremity. Should they notice these changes, they are instructed to call our office immediately or report directly to the nearest Emergency Department if no answer or if after posted office hours. COMPLICATIONS: None COMMENTS: None CONTRAST WASTED: 28.5mL Omnipaque 300. Complications No immediate complications Condition Stable Disposition Same day [facility] Billing Surgery - Charge Forward: Surgery Billing
[2025-02-12 08:57] VITALS: BP 141/80; PULSE 59; RESP 13; O2SAT 93
[2025-02-12] MEDS: BUPivacaine HCL 0.5% 10 ML AMP INFILTRATE (08:58)
[2025-02-12] MEDS: LIDOCAINE 1% PF INJ 5 ML VIAL INFILTRATE (08:58)
[2025-02-12 09:02] VITALS: BP 138/72; PULSE 59; RESP 11; O2SAT 100
[2025-02-12 09:11] VITALS: BP 123/86; PULSE 62; RESP 16; O2SAT 100
== END 2025-02-12 07:33 | disposition home or self-care (01) ==
PROVIDERS: PCP Family Medicine; Visit Provider Anesthesiology Pain Medicine
PROC: (CPT 64493; principal; 2025-02-12 08:50)
DX: M47.26 Other spondylosis with radiculopathy, lumbar region (principal); M48.061 Spinal stenosis, lumbar region without neurogenic claudication
CPT/HCPCS: 64493; 64494 ×2; 64495 ×2; 99199

== ENCOUNTER 2025-03-05 12:05 | Day surgery (SDC) | payer OTHER, SELFPAY ==
--- OUTSIDE RECORDS SUMMARY | 2024-02-13 08:10 | XMS_ITS ---
Author Organization [facility] Address [address] [place], [place] [id number] Care Team Providers Care Adult Basic Education Manager Name Role Phone RASHAUN RIOS Unavailable [phone] Epifanio Sun Unavailable Unavailable REASON FOR VISIT sick Encounters Encounter Location Date Provider Diagnosis [facility] [place] [address] [address] [facility] [address] [place], [place] [id number] 02/13/2024 RASHAUN RIOS Plan Of Treatment No Information Progress Notes * MARYCARMEN HERMAN MDOB:[birth year] (64 yo F)Acc No.[id number]:02/13/2024 Patient: Emerita SIMIJOHN MARYCARMEN Libra Provider: Melchor Rios DPM :1960 A ge:63 Y S ex:Female Date:02/13/2024 Address:[address] [place], [place] [id number] Subjective: * Chief Complaints: * 1 . Sick. * Medical History: Objective: * Vitals: Assessment: Plan: * Treatment: * Billing Information: * Visit Code: * Procedure Codes: * Electronic signature of RASHAUN RIOS DPM on 03/05/2025 at 01:39 PM CDT Sign off status: Pending * Provider: Melchor Rios DPM Date: 0 02/13/2024 Generated for Printi ng/Faxing/eTransmitting on: 0 03/05/2025 01:39 PM CDT
--- OUTSIDE RECORDS SUMMARY | 2025-02-18 05:50 | XMS_ITS ---
Author Organization [facility] Address [address] [place], [place] [address] Care Team Providers Care R And D Lab Technician Name Role Phone RASHAUN RIOS Unavailable [phone] Epifanio Sun Unavailable Unavailable REASON FOR VISIT [...] phosphate 4 MG/ML Injectable Solution *Reorder from [employer] for eRx and Interaction Alerts* 12/28/19 19 Active diclofenac sodium 0.01 MG/MG Topical Gel CUTANEOUS diclofenac sodium 0.01 MG/MG Topical GelOriginal Medicationdiclofenac sodium 0.01 MG/MG Topical Gel *Reorder from [employer] for eRx and Interaction Alerts* 04/24/20 18 Active Medrol Dosepak ORAL Medrol DosepakOr iginal MedicationMedrol Dosepak *Reorder from [employer] for eRx and Interaction Alerts* 02/07/20 18 Active Encounters Encounter Location Date Provider Diagnosis [facility] [place] [address] [place], [place] [id number] 02/18/2025 RASHAUN RIOS Other specified rheumatoid arthritis, [...] * MARYCARMEN HERMAN MDOB:[birth year] (64 yo F)Acc No.[id number]:02/18/2025 Patient: Emerita MARYCARMEN TOMAS Libra Provider: Melchor Rios DPM :1960 A ge:64 Y S ex:Female Date:02/18/2025 Address:[address] [place] [address] Subjective: * Chief Complaints: * 1 . The patient has RA and cortisone injections below her ankles helps her manage her pain. * HPI: H PI: New Complaint E stablished patient presents with a new complaint., Patient complains of an issue to wanting bilateral injections in the ankle and one on the top of the left foot., Patient denies any injury., MA: yan. * ROS: G eneral / Constitutional: Patient [...] phosphate 4 MG/ML Injectable Solution *Reorder from [facility] for eRx and Interaction Alerts*, Taking diclofenac sodium 0.01 MG/MG Topical Gel CUTANEOUS , Notes to Pharmacist: diclofenac sodium 0.01 MG/MG Topical GelOriginal Medicationdiclofenac sodium 0.01 MG/MG Topical Gel *Reorder from [facility] for eRx and Interaction Alerts*, Taking Medrol Dosepak ORAL , Notes to Pharmacist: Medrol DosepakOriginal MedicationMedrol Dosepak *Reorder from [facility] for eRx and Interaction Alerts*, Taking [...] injected to the right sinus tarsi * Follow Up: p rn * Billing Information: * Visit Code: * Procedure Codes: * Electronic signature of RASHAUN RIOS DPM on 03/05/2025 at 01:39 PM CDT Sign off status: Pending * Provider: Melchor Rios DPM Date: 02/18/2025 Generated for Lucia alvarez/Salazar/Chris on: 0 03/05/2025 01:39 PM CDT History and Physical Notes * HPI [...]
[2025-02-28 10:26] VITALS: BMI 29.9
--- NOTE | ~2025-03-05 | XR_ITS ---
EXAMINATION: XR fluoroscopy no charge DATE: 03/05/2025 14:00 INDICATION: Diagnostic bilateral L3, L4 and L5 medial branch dorsal ramus nerve blocks TECHNIQUE: Total of 10 fluoroscopic images of the lumbar spine were obtained during procedure performed by Dr. Nelson. Radiologist was not present for the imaging or procedure. The amount of fluoroscopy time used during this procedure was 0.8 minutes. Cumulative radiation dose was 11.17 mGy. COMPARISON: None. FINDINGS: Images demonstrate 3 thin spinal needles with distal tips and small amount of injected contrast positioned along the junction of the bilateral superior articular and transverse processes of L4, L5 and S1. IMPRESSION: 1. Fluoroscopy utilized during pain management procedure including bilateral L3, L4 and L5 medial posterior ramus nerve blocks. See procedure note for further detail. Reviewed, dictated and finalized at location A. IMPRESSION: 1. Fluoroscopy utilized during pain management procedure including bilateral L3 , L4 and L5 medial posterior ramus nerve blocks. See procedure note for further detail.
--- NOTE | 2025-03-05 12:03 | WPDHPUPDATE1 ---
History and Physical Update Update Date/Time: 03/05/25 12:03 History and Physical has been reviewed, including an updated exam of the patient. There are NO changes in the patient's condition. Risks, benefits, and alternatives have been discussed and questions answered. Patient agrees to proceed with procedure.
--- NOTE | 2025-03-05 12:04 | P.OP_ITS ---
Procedure Note - Detailed Date of Procedure 03/05/25 Pre-op Diagnosis Lumbar Spondylosis w/o Myelopathy or Radiculop. Post-op Diagnosis Same Procedure Performed Diagnostic bilat Lumbar Medial Branch/Dorsal Ramus Blocks at L3, L4, L5 Shonda ting the bilateral L4-5, L5-S1 Facet Joints Under Fluoroscopic Guidance and with Contrast Control. (4 Levels blocked). Surgeon Ryder Nelson MD Vice President Education None. Anesthesia Local Description of Procedure INFORMED CONSENT: Risks, benefits and alternatives to the procedure were discussed in detail with the patient who expressed explicit understanding and consent to proceed. Patient was informed verbally and in written form regarding the risks associated with the procedure including the low risk of serious infection, bleeding/bruising, allergic reaction, nerve or organ injury, paralysis, procedural site pain or discomfort, worsening pain and/or mobility, failure to treat and/or disfigurement. The patient expressed explicit understanding and consent to proceed. All materials required for the procedure were available prior to procedure start. Site and side were marked prior to procedure and confirmed in the presence of the patient. PROCEDURE IN DETAIL: The patient was brought to the procedural suite and placed in the prone position. Patient was made comfortable with use of pillows under the head/chest, hips and ankles. Skin overlying the injection site on the affected side(s) was prepared broadly with ChloraPrep applicator and draped in a sterile manner. Aseptic technique was used throughout. The endplates of the vertebral bodies at the site(s) of interest were aligned in the AP view. Ipsilateral oblique angulation was utilized to optimize visualization of the intersection between the superior articulating process and transverse process at each target site. Local anesthesia was established by infiltration with approximately 5 mL of 1% lidocaine via a 1-1/2 inch 27-gauge needle. A 25-gauge 5.0 inch Quincke spinal needle was advanced until the needle tip contacted periosteum at the target site, right L3. Lateral view was utilized to confirm the appropriate placement of the needle tip just anterior to the facet line and superior to the pedicle. In the Lateral view, 0.25 mL of Omnipaque 300 contrast medium was injected after negative aspiration for CSF, blood or other bodily fluid, showing appropriate extra-articular spread of contrast without evidence of intravascular, foraminal or intrathecal placement. A 0.5 mL solution of 2.0% PF lidocaine was injected after negative repeat aspiration. Appropriate spread of the injectate was confirmed with washout of previously injected contrast. No parasthesias were elicited. Needle was removed completely intact without difficulty. The same exact procedure was repeated for all remaining levels on the ipsilateral side, right L4, L5 medial branches/dorsal ramus, modified as necessary to accommodate for the new target location with identical findings and results and no evidence of complication. The same exact procedure was repeated for all remaining levels on the contralateral side, left L3, L4, L5 medial branches/dorsal ramus, modified as necessary to accommodate for the new target location with identical findings and results and no evidence of complication. Images were saved and documented in the patient chart. Patient's skin was cleaned and sterile bandage applied. The patient tolerated the procedure well. The patient was transported to the recovery area in stable condition where they were observed for an appropriate amount of time prior to discharge, without evidence of complication. Patient was instructed on the appropriate completion of a pain diary over the next 12-24 hours. The patient was instructed to avoid excessive activity for the next 48 hours, including climbing and frequent use of stairs. Showers only for 48 hours. They were instructed not to drive or operate heavy machinery for 24 hours. They are to monitor for severe headaches, fevers, chills, night sweats, erythema/swelling at the site or any other signs of infection, bleeding/bruising, bowel or bladder changes as well as new pain, weakness or numbness in the upper or lower extremity. Should they notice these changes, they are instructed to call our office immediately or report directly to the nearest Emergency Department if no answer or if after posted office hours. COMPLICATIONS: None COMMENTS: None CONTRAST WASTED: 28.5mL Omnipaque 300. Complications No immediate complications Condition Stable Disposition Same day [facility] Billing Surgery - Charge Forward: Surgery Billing
[2025-03-05 12:26] VITALS: BP 123/89; PULSE 67; RESP 16; TEMP 36.3; O2SAT 100
--- OUTSIDE RECORDS SUMMARY | 2025-03-05 13:39 | XMS_ITS ---
Author Name WARNER DENTON M.D. Address [address] [facility] [place] [address] Phone [phone] Organization [facility] ([facility]) Care Team Providers Care Production Associate Name Role Phone WARNER DENTON Unavailable [phone] Gina Sun Unavailable [phone] Reason for Referral Not Available Allergies, adverse [...] medical decision making, total time 45-59 minutes [id number] 2024-09-27 No Data Available No Data Availa [...] any relevant findings from the examination. Ms. Alozno looks well and shows no signs of [...]
--- OUTSIDE RECORDS SUMMARY | 2025-03-05 13:40 | XMS_ITS | Patient Health Record ---
Author Organization [facility] Address [address] [place], [place] [id number] Care Team Providers Care Dyeing Machine Feeder Name Role Phone RASHAUN RIOS Unavailable [phone] Epifanio Sun Unavailable Unavailable Allergies No Known Allergies Reason For Referral Reason Essence Referral ([id number]) Diagnosis 1 Pain in right ankle and joints of right foot (M25.571) Diagnosis 2 Pain in left ankle a nd joints of left foot (M25.572) Referred Organization [facility] Referred Provider RASHAUN RIOS Referred Address [address],[place], [id number], Referred Provider Specialty Podiatry Referral Priority Routine Reason ESSENCE REFERRAL REQ UEST ( APPOINTMENT: 02/18/2025 ) Diagnosis 1 Left foot pain (M79. 672) Diagnosis 2 Pain in right foot ( M79.671) Diagnosis 3 Lesion of plantar ne rve, right lower limb (G57.61) Diagnosis 4 Lesion of plantar ne rve, left lower limb (G57.62) Diagnosis 5 Other hammer toe(s) (acquired), right foot (M20.41) Diagnosis 6 Hammertoe of left fo ot (M20.42) Referral Organization [facility] Referring Provider First Name RASHAUN Referring Provider Last Name GABRIEL Referring Provider Speciality Podiatry Referred Provider Epifanio Sun Referred Provider Specialty General Prac luther Referral Priority Routine Medications Medication SIG (Take, Route, Frequency, Duration) Notes Start Date End Date Status methylPREDNISolone 4 MG as directed Orally one pack 02/08/20 23 Active Nabumetone 500 MG TAKE 1 TABLET BY MOUTH TWICE A DAY; Duration: 90 Active dexamethasone phosphate 4 MG/ML Injectable Solution dexamethasone phosphate 4 MG/ML Injectable SolutionOriginal Medicationdexamethasone phosphate 4 MG/ML Injectable Solution *Reorder from TASCET for eRx and Interaction Alerts* 12/28/19 19 Active diclofenac sodium 0.01 MG/MG Topical Gel CUTANEOUS diclofenac sodium 0.01 MG/MG Topical GelOriginal Medicationdiclofenac sodium 0.01 MG/MG Topical Gel *Reorder from TASCET for eRx and Interaction Alerts* 04/24/20 18 Active Medrol Dosepak ORAL Medrol DosepakOr iginal MedicationMedrol Dosepak *Reorder from TASCET for eRx and Interaction Alerts* 02/07/20 18 Active Immunizations Vaccine Route Administration Date Status Comme nts Influenza, high dose seasonal Unknown 06/13/2023 Admini stered Vital Signs Height-cm 167.64 cm 12/10/2024 Weight-kg 99.79 kg 12/10/2024 Height 66.00 in 12/10/2024 Weight 220 lbs 12/10/2024 BMI 35.51 kg/m2 12/10/2024 Encounters Encounter Location Date Provider Diagnosis [facility] [address] [place] [address] [id number] 02/18/2025 RASHAUN SNOOK Other specified rheumatoid arthritis, right [...] M19.071 and Pain in right foot M79.671 [facility] [address] [place] [address] [id number] 03/19/2024 RASHAUN SNOOK Tendinitis of left f oot M77.52 ; Metatarsalgia of left foot M77.42 ; Other specified rheumatoid arthritis, left ankle and foot M06.872 and Left foot pain M79.672 [facility] [address] [place] [address] [id number] 09/03/2024 RASHAUN RIOS Other specified rheumatoid arthritis, left ankle and foot M06.872 ; Other specified rheumatoid arthritis, right ankle and foot M06.871 ; Pain in right foot M79.671 and Pain in left toe(s) M79.675 [facility] [address] [place] [address] [id number] 12/10/2024 RASHAUN RIOS Other specified rheumatoid arthritis, right [...] was injected to the left forefoot. 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 [address] [place] [address] [id number] MARYCARMEN HERMAN Self - patient is the insured
--- OUTSIDE RECORDS SUMMARY | 2025-03-05 13:40 | XMS_ITS | Clinical Summary ---
Author Organization [facility] Address [address] [place] [address] Care Team Providers Care Business Continuity Analyst Name Role Phone Epifanio Sun MD Primary Care Provider [phone]- [phone] Medications traMADol (ULTRAM) 50 MG tablet Take [...] Comments Blood Pressure 143/83 05/06/2023 1:30 PM BANK NOTE DESIGNER Pulse 66 05/06/2023 1:30 PM BANK NOTE DESIGNER Temperature 36.1 C (97 F) 05/06/2023 1:30 PM BANK NOTE DESIGNER Respiratory Rate 16 05/06/2023 1:30 PM BANK NOTE DESIGNER Oxygen Saturation 97% 05/06/2023 1:30 PM BANK NOTE DESIGNER Inhaled Oxygen Concentration - - Weight 107.7 kg (237 lb 7 oz) 05/06/2023 8:30 AM BANK NOTE DESIGNER Height 167.6 cm (5' 6) 05/06/2023 8:30 AM BANK NOTE DESIGNER Body Mass Index 38.32 05/06/2023 8:30 AM BANK NOTE DESIGNER Plan of Treatment Health Maintenance Due Date Last Done Comments Colorectal Cancer Screening Colonoscopy (10 Years) 1962 Annual Physical 1965 Hepatitis C 1980 DTaP, Tdap and Td Vaccines ( 1 - Tdap) 1981 Mammogram Screening 2002 Zoster Vaccines (1 of 2) 2012 Pneumococcal Vaccine: 50+ Years (3 of 3 - PCV20 or PCV21) 06/14/2024 06/14/2019, 09/22/2017 COVID-19 Vaccine (3 - 2024-2 6 season) 2025 05/27/2021, 09/01/2020 RSV Immunization or 60+ Years (1 - [...] this topic Medical Devices Implanted Type Area Supervisor Machine Setter Device Identifier Shelf Expiration Date Model / Serial / Lot Toe Tac Xpress Fixation System Implanted:Qty: 2 on 05/06/2023 by Fuad Daugherty DPM at [facility] Left: Foot [employer] 12/20/2025 [id number] / / [id number] Toe Tac Hammertoe Fixation System Implanted:Qty: 1 on 05/06/2023 by Fuad Daugherty DPM at [facility] Left: Foot [employer] 02/08/2025 [id number] / / [id number] Insurance Care Teams Business Continuity Analyst Relationship Specialty Start Date End Date Epifanio Sun MD [facility] [address] [address] PCP - General FAMILY PRACTICE 04/29/23
--- OUTSIDE RECORDS SUMMARY | 2025-03-05 13:40 | XMS_ITS | Patient Health Record ---
Author Organization [facility] Address [address] [place] [address] Care Team Providers Care Job Placement Counselor Name Role Phone Gina Sun MD Primary Care Provider Unav ailable Jayne Boland Unavailable [phone] Allergies No Known Allergies Results Component Value Reference Range Notes MIGUEL reflex titer pattern GILMER + dsDNA Reviewed date:05/23/2024 01:08:32 PM Interpretation: Performing Lab:[facility] , [address] [place] [place] [address] Notes/Report: MIGUEL, Qual Negative Interpretive Data Normal [...] last revised on 2020. Testing performed by: [facility], [address] [place]., [address] C Reactive Protein Reviewed date:05/22/2024 04:01:52 PM Interpretation: Performing Lab:[facility] , [address] [facility] [place] [place] [address] Notes/Report: C-Reactive Protein 5.1 <=10.0 mg/L Complement C3 Reviewed date:05/22/2024 04:01:52 PM Interpretation: Performing Lab:[facility] , [address] [facility]. [place] [address] Notes/Report: Complement, C3 167 90-180 mg/dL Complement C4 Reviewed date:05/22/2024 04:01:52 PM Interpretation: Performing Lab:[facility] , [address] [facility]. [facility] [address] Notes/Report: Complement, C4 35 10-40 mg/dL Creatine Kinase Reviewed date:05/22/2024 04:01:52 PM Interpretation: Performing Lab:[facility] , [facility] [facility]. [facility] [address] Notes/Report: Total CK 106 30-200 Units/L Rheumatoid Factor Reviewed date:05/22/2024 04:01:52 PM Interpretation: Performing Lab:[facility] , [facility] [facility]. [facility] [address] Notes/Report: RF, Afshin 10 <=15 IUnits/mL Differential Automated Reviewed date:05/22/2024 03:35:41 PM Interpretation: Performing Lab:[facility] , [facility] [facility]. [place] [address] Notes/Report: Neut Abs 5.1 1.5-6.5 K/cumm ImmGran Abs 0.0 0.0-0.1 K/cumm Lymphocyte Abs 1.9 0.8-3.3 K/cumm Marion Abs 0.5 0.2-0.8 K/cumm Eos Abs 0.2 [...] Interpretive Data was last revised on 2017. Marion Pct 6.3 Interpretive Data Percent cell count [...] Interpretive Data was last revised on 2017. eGFR Reviewed date:05/22/2024 04:01:52 PM Interpretation: Performing Lab:[facility] , [address] [place] [address]. [facility] [address] Notes/Report: eGFR 60 >=60 mL/min/1.73 m2 Normal [...] last reviewed 2021. Interpretive Data Reference Interval COMPREHENSIVE METABOLIC PANE L (32299) Reviewed date:10/23/2024 08:32:26 AM Interpretation:Lab Result Generalized Performing Lab:[facility], [facility] Center[facility] [facility] HospitalSewvplkYA[address] [facility] Thi Vo Notes/Report: NON-FASTING; NON-FASTING FASTING:NO FASTING: NO GLUCOSE 85 65-139 mg/dL Non-fasting reference interval [...] 08:32:25 AM Interpretation:Lab Result Generalized Performing Lab:YVONNE, DISKOVReNortheast Regional Medical CenterXkmna[address] [facility] HospitalPoalfqsWN[address] [facility] Notes/Report: NON-FASTING; NON-FASTING FASTING:NO FASTING: NO [...] MPV 9.8 7.5-12.5 fL ABSOLUTE NEUTROPHILS 5076 1522-9666 cells/uL ABSOLUTE LYMPHOCYTES 9007 303-6908 cells/uL ABSOLUTE MONOCYTES 370 200-950 cells/uL ABSOLUTE EOSINOPHILS 96 15-500 cells/uL ABSOLUTE BASOPHILS 37 0-200 cells/uL NEUTROPHILS 68.6 LYMPHOCYTES 24.6 MONOCYTES 5.0 EOSINOPHILS 1.3 BASOPHILS 0.5 UA, reflex Micro to Culture Reviewed date:05/22/2024 04:01:53 PM Interpretation: Performing Lab:[facility] , [address] [place] [address]. [facility] [address] Notes/Report: Color, Ur Yellow Yellow Clarity, Ur [...] tendency for uric acid stone formation. Source: [facility] [employer] Current Interpretive Data was last revised on [...] Rate Reviewed date:05/22/2024 09:15:42 PM Interpretation: Performing Lab:[facility] , [address] [place] [address]. [facility] [address] Notes/Report: ESR 21 1-30 mm/hr QTB Gold Reviewed date:05/25/2024 08:25:49 PM Interpretation: Performing Lab:[facility] , [address] [place] [address]. [facility] [address] Notes/Report: QuantiFERON TB Gold Negative Negative No [...] Mitogen-Nil 2.30 NIL 0.00 Test Performed by: [facility] [address] [place] [address] Robotic Technician: Austen Tsang Ph.D.; CLIA# [id number] Comprehensive metabolic pane l (CMP) Reviewed date:05/22/2024 04:01:52 PM Interpretation: Performing Lab:[facility] , [facility] [place] [address] Notes/Report: Sodium 142 135-145 mmol/L Plasma Potassium [...] classification and Diagnosis of Diabetes Diabetes Care 202; 46: S19-S40. Current interpretive data was last revised 2022. Total Calcium 10.0 8.5-10.3 mg/dL Total Bilirubin 0.3 0.1-1.2 mg/dL Plasma Total Protein 8.2 6.5-8.5 g/dL Albumin 4.8 3.5-5.0 g/dL Alkaline Phosphatase 97 40-130 Units/L ALT 24 7-45 Units/L AST 25 10-45 Units/L CBC w auto diff Reviewed date:05/22/2024 03:35:42 PM Interpretation: Performing Lab:[facility] , [facility] [place] [address] Notes/Report: WBC 7.6 3.8-9.9 K/cumm Hgb 13.5 11.9-15.5 g/dL Hct 40.6 35.6-45.5 % Platelet Ct 355 150-400 K/cumm MPV 10.4 9.1-12.3 fL RBC 4.45 3.90-5.20 M/cumm MCV 91.2 81.3-96.4 fL MCH 30.3 27.1-33.3 pg MCHC 33.3 32.3-35.7 g/dL RDW CV 14.3 11.1-14.9 % RDW SD 47.8 35.7-48.1 fL NRBC Abs Auto 0.00 0.00-0.01 K/cumm Anti-CCP (Cyclic Citrullinat ed Peptide Ab) Reviewed date:05/23/2024 11:23:29 AM Interpretation: Performing Lab:[facility] , [facility] [address] Notes/Report: CCP Ab <0.5 <=2.9 units/mL Interpretive data Negative: <3 units/mL Positive: > or equal to 3 units/mL Current interpretive data was last revised on 2016. Reason For Referral Reason PT APPROVED TO SEE Tru BOLAND FOR 30 VISITS Diagnosis 1 Other overlap syndro mes (M35.1) Referring Provider First Name Epifanio Referring Provider Last Name Dino Referred Organization [facility] janette Referred Provider Jayne Boland Referred Address [address] [place] [address],[place], [place],[address], Referred Provider Specialty Rheumatology Referral Priority Routine [...] W/U Status Risk Notes Problem Overlap syndrome (831633404) 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) Active confirmed Problem Overlap syndrome (303837386) Overlap syndrome (M35.1) Active confirmed Problem Mixed connective tissue disease (286535234) Mixed connective tissue disease (M35.1) Active confirmed Problem Inflammatory arthritis (2366553) Inflammatory arthritis (M19.90) Active confirmed Problem Raynaud's disease (783746504) Raynaud's phenomenon without gangrene (I73.00) Active confirmed Vital Signs Heart Rate 79 /min 01/04/2025 Temperature 97.8 degrees Fahrenheit 01/04/2025 Blood pressure diastolic 80 mm Hg 01/04/2025 Oximetry 99 % 01/04/2025 Height-cm 167.64 cm 01/04/2025 Weight-kg 89.59 kg 01/04/2025 Height 66 in 01/04/2025 Blood pressure systolic 110 mm Hg 01/04/2025 Weight 197.5 lbs 01/04/2025 BMI 31.87 kg/m2 01/04/2025 Encounters Encounter Location Date Provider Diagnosis [facility] [address] [facility] [address], [place] [address] 05/22/2024 Jayne Du Pain in unspecified joint M25.50 ; Mixed connective tissue disease M35.1 ; High risk medication use Z79.899 and Overlap syndrome M35.1 [facility] [address] [facility] [address] [place] [address] 06/05/2024 Jayne Du Inflammatory arthrit is M19.90 ; Decreased GFR R94.4 and Raynaud's phenomenon without gangrene I73.00 [facility] [address] [facility] [address] [place] [address] 10/22/2024 Jayne Du Inflammatory arthrit is M19.90 ; Decreased GFR R94.4 and Raynaud's phenomenon without gangrene I73.00 [facility] [address] [facility] [address] [place] [address] 01/04/2025 Jayne Du Inflammatory arthrit is M19.90 ; Decreased GFR R94.4 and Raynaud's phenomenon without gangrene I73.00 [facility] [address] [facility] [address] [place] [address] 07/05/2024 Jayne Du Assessments Encounter Date Diagnosis [...] CBC (INCLUDES DIFF/PLT) (6399) COMPREHENSIVE METABOLIC PANEL (06852) Next Appt Details Provider Name:Jayne Boland, 04/03 01:15:00 PM, [address], [place], [address], Insurance Providers Payer Name Payer Address Payer Phone Subscriber Number Group Number Insured Name Patient Relationship to Insured Coverage Start Date Coverage End Date [facility] [address] [place] [id number] Noni Alonzo Self - patient is the insured Medical (General) History Medical History History ICD Code connective tissue disease, o verlap syndrome, autoimmune thyroiditis, BPPV, COPD, hypertension, GERD, small fiber neuropathy, spinal stenosis L4-5, headache Surgical History Surgery Date(Month/Year) back surgery
[2025-03-05 13:46] VITALS: BP 142/92; PULSE 66; RESP 16; O2SAT 100
[2025-03-05] MEDS: LIDOCAINE 2% PF LOCAL INJ 5 ML VIAL INFILTRATE (13:47)
[2025-03-05] MEDS: LIDOCAINE 1% PF INJ 5 ML VIAL INFILTRATE (13:48)
[2025-03-05 13:52] VITALS: BP 150/88; PULSE 68; RESP 13; O2SAT 100
[2025-03-05 13:55] VITALS: BP 125/93; PULSE 72; RESP 16; O2SAT 98
== END 2025-03-05 14:27 | disposition home or self-care (01) ==
LOC: ASC 12:06
PROVIDERS: PCP Family Medicine; Visit Provider Anesthesiology Pain Medicine
PROC: (CPT 64493; principal; 2025-03-05 13:00)
DX: M47.816 Spondylosis without myelopathy or radiculopathy, lumbar region (principal)
CPT/HCPCS: 64493; 64494 ×2; 64495 ×2; 99199

== ENCOUNTER 2025-04-06 10:02 | Outpatient (CLI) | payer OTHER, SELFPAY ==
--- OUTSIDE RECORDS SUMMARY | 2025-04-06 10:06 | XMS_ITS ---
Author Name WARNER DENTON M.D. Address [address] [facility] [address] [address] Phone [phone] Organization [facility] ([facility]) Care Team Providers Care Social Work Case Manager Name Role Phone WARNER DENTON Unavailable [phone] Gina Sun Unavailable [phone] Reason for Referral Not Available Allergies, adverse [...] medical decision making, total time 45-59 minutes [id number] 2024-09-27 No Data Available No Data Availa [...]
--- OUTSIDE RECORDS SUMMARY | 2025-04-06 10:07 | XMS_ITS | Clinical Summary ---
Author Organization [facility] Address [address] [place] [address] Care Team Providers Care Color Artist Name Role Phone Epifanio Sun MD Primary Care Provider [phone]- [phone] Medications traMADol (ULTRAM) 50 MG tablet Take [...] Comments Blood Pressure 143/83 05/06/2023 1:30 PM NURSE EXAMINER Pulse 66 05/06/2023 1:30 PM NURSE EXAMINER Temperature 36.1 C (97 F) 05/06/2023 1:30 PM NURSE EXAMINER Respiratory Rate 16 05/06/2023 1:30 PM NURSE EXAMINER Oxygen Saturation 97% 05/06/2023 1:30 PM NURSE EXAMINER Inhaled Oxygen Concentration - - Weight 107.7 kg (237 lb 7 oz) 05/06/2023 8:30 AM NURSE EXAMINER Height 167.6 cm (5' 6) 05/06/2023 8:30 AM NURSE EXAMINER Body Mass Index 38.32 05/06/2023 8:30 AM NURSE EXAMINER Plan of Treatment Health Maintenance Due Date Last Done Comments Colorectal Cancer Screening Colonoscopy (10 Years) 1962 Annual Physical 1965 Hepatitis C 1980 DTaP, Tdap and Td Vaccines (1 - Tdap) 1981 Mammogram Screening 2002 Zoster Vaccines (1 of 2) 2012 Pneumococcal Vaccine: 50+ Years (3 of 3 - PCV20 or PCV21) 06/14/2024 06/14/2019, 09/22/2017 COVID-19 Vaccine (3 - season) 2025 05/27/2021, 09/01/2020 Influenza Adult (#1) 2025 03/17/2022, 04/08/2021, 06/14/2019, Additional history exists RSV Immunization or 60+ Years (1 - 1-dose 75+ series) 2037 Meningococcal B Vaccine Aged Out No l onger eligible based on patient's age to complete this topic Meningococcal Vaccine Aged Out No anahi dallas eligible based on patient's age to complete this topic RSV Immunizations Under 20 Months Aged Out No longer eligible based on patient's age to complete this topic Medical Devices Implanted Type Area Elevator Service Technician Device Identifier Shelf Expiration Date Model / Serial / Lot Toe Tac Xpress Fixation System Implanted:Qty: 2 on 05/06/2023 by Fuad Daugherty DPM at [facility] Left: Foot [employer] 12/20/2025 [id number] / / [id number] Toe Tac Hammertoe Fixation System Implanted:Qty: 1 on 05/06/2023 by Fuad Daugherty DPM at [facility] Left: Foot [employer] 02/08/2025 [id number] / / [id number] Insurance ESSENCE Care Teams Color Artist Relationship Specialty Start Date End Date Epifanio Sun MD [facility] [address] [place] [address] PCP - General FAMILY PRACTICE 04/29/23
--- NOTE | 2025-04-06 10:19 | ECG_ITS ---
Test Date: 2025-04-06 10:30:18 Measurements Intervals [place] Rate: 60 P: 36 MI: 174 QRS: -35 QRSD: 103 T: 6 QT: 444 QTc: 445 Interpretive Statements SINUS RHYTHM LEFT AXIS DEVIATION LOW QRS VOLTAGE IN PRECORDIAL LEADS PATTERN CONSISTENT WITH PULMONARY DISEASE VOLTAGE CRITERIA FOR LVH MINIMAL Q WAVES- HIGH LATERAL LEADS BORDERLINE T WAVE ABNORMALITY- INFERIOR LEADS BASELINE ARTIFACT- V3 BORDERLINE ECG No previous ECG available for comparison Electronically Signed On 04-06-2025 15:51:36 CDT by Navdeep Ibrahim D.O.
[2025-04-06 10:21] LABS: Hematocrit 37.6 % (37.0-47.0); Hemoglobin 13.0 g/dL (12.0-15.0)
[2025-04-06 10:42] LABS: Anion Gap 9 mmol/L (4-12); Blood Urea Nitrogen 20 mg/dL (7-17); Calcium 9.6 mg/dL (8.4-10.2); Carbon Dioxide 28 mmol/L (22-30); Chloride 99 mmol/L (98-107); Estimated Glomerular Filt Rate 53; Glucose 91 mg/dL (65-110); Potassium 3.8 mmol/L (3.4-5.0); Sodium 136 mmol/L (137-145)
== END 2025-04-06 10:03 | disposition home or self-care (01) ==
PROVIDERS: PCP Family Medicine; Visit Provider Anesthesiology
DX: Z01.818 Encounter for other preprocedural examination (principal); R94.31 Abnormal electrocardiogram [ECG] [EKG]; D50.9 Iron deficiency anemia, unspecified; R73.03 Prediabetes; I10 Essential (primary) hypertension; E78.2 Mixed hyperlipidemia
CPT/HCPCS: 36415; 80048; 85014; 85018; 93005

== ENCOUNTER 2025-04-09 09:12 | Day surgery (SDC) | payer OTHER, SELFPAY ==
--- OUTSIDE RECORDS SUMMARY | 2024-02-13 08:10 | XMS_ITS ---
Author Organization [facility] Address [address] [place], [place] [id number] Care Team Providers Care Security Installer Name Role Phone RASHAUN RIOS Unavailable [phone] Epifanio Sun Unavailable Unavailable REASON FOR VISIT sick Encounters Encounter Location Date Provider Diagnosis [facility] [place] [address] [facility] [address] [place], [place] [id number] 02/13/2024 RASHAUN RIOS Plan Of Treatment No Information Progress Notes * MARYCARMEN HERMAN MDOB:[birth year] (64 yo F)Acc No.[id number]:02/13/2024 Patient: Emerita SIMIJOHN MARYCARMEN Libra Provider: Melchor Rios DPM :1960 A ge:63 Y S ex:Female Date:02/13/2024 Address:[address] [place], [place] [id number] Subjective: * Chief Complaints: * 1 . Sick. * Medical History: Objective: * Vitals: Assessment: Plan: * Treatment: * Billing Information: * Visit Code: * Procedure Codes: * Electronic signature of RASHAUN RIOS DPM on 04/09/2025 at 10:26 AM CDT Sign off status: Pending * Provider: Melchor Rios DPM Date: 0 02/13/2024 Generated for Printi ng/Faxing/eTransmitting on: 1 10:26 AM CDT
--- OUTSIDE RECORDS SUMMARY | 2025-02-18 05:50 | XMS_ITS ---
Author Organization [facility] Address [address] [place], [place] [address] Care Team Providers Care Asphalt Smoother Name Role Phone RASHAUN RIOS Unavailable [phone] Epifanio Sun Unavailable Unavailable REASON FOR VISIT The patient has RA and cortisone injections below her ankles helps her manage her pain Medications Medication SIG (Take, Route, Frequency, Duration) Notes Start Date End Date Status methylPREDNISolone 4 MG as directed Orally one pack 02/08/20 23 Active Nabumetone 500 MG TAKE 1 TABLET BY MOUTH TWICE A DAY; Duration: 90 Active dexamethasone phosphate 4 MG/ML Injectable Solution dexamethasone phosphate 4 MG/ML Injectable SolutionOriginal Medicationdexamethasone phosphate 4 MG/ML Injectable Solution *Reorder from [employer] for eRx and Interaction Alerts* 12/28/19 19 Active diclofenac sodium 0.01 MG/MG Topical Gel CUTANEOUS diclofenac sodium 0.01 MG/MG Topical GelOriginal Medicationdiclofenac sodium 0.01 MG/MG Topical Gel *Reorder from [employer] for eRx and Interaction Alerts* 04/24/20 18 Active Medrol Dosepak ORAL Medrol DosepakOr iginal MedicationMedrol Dosepak *Reorder from [employer] for eRx and Interaction Alerts* 02/07/20 18 Active Encounters Encounter Location Date Provider Diagnosis [facility] [address] [place], [place] [id number] 02/18/2025 RASHAUN RIOS Other specified rheumatoid arthritis, [...] Next Appt Details Follow Up: prn, Reason: Progress Notes * MARYCARMEN HERMAN MDOB:[birth year] (64 yo F)Acc No.[id number]:02/18/2025 Patient: Emerita MARYCARMEN TOMAS Libra Provider: Melchor Rios DPM :1960 A ge:64 Y S ex:Female Date:02/18/2025 Address:[address] [place] [address] Subjective: * Chief Complaints: * 1 . The patient has RA and cortisone injections below her ankles helps her manage her pain. * HPI: H PI: New Complaint E stablished patient presents with a new complaint., Patient complains of an issue to wanting bilateral injections in the ankle and one on the top of the left foot., Patient denies any injury., MA: yna. * ROS: G eneral / Constitutional: Patient denies c hills, fever, weakness, night sweats. M usculoskeletal: Patient denies c hildhood foot problems, weakness. ? P eripheral Vascular: Patient denies u lceration of feet, cold extremities. ? S kin: Patient denies u lcerations, discoloration. ? N eurologic: Patient denies b alance difficulty, confusion, difficulty speaking, dizziness. * Medical History: * Family History: F ather: PRN - Father: . M other: PRN - Mother: :: Foot problem,,known absent . S ister: SIB - Sister: :: Hypertension,,known absent . * Social History: M igrated Social History: M igrated Social History: Alcohol intake : , History of tobacco use : , Smoking Status : Former smoker. * Medications: T aking dexamethasone phosphate 4 MG/ML Injectable Solution , Notes to Pharmacist: dexamethasone phosphate 4 MG/ML Injectable SolutionOriginal Medicationdexamethasone phosphate 4 MG/ML Injectable Solution *Reorder from [facility] for eRx and Interaction Alerts*, Taking diclofenac sodium 0.01 MG/MG Topical Gel CUTANEOUS , Notes to Pharmacist: diclofenac sodium 0.01 MG/MG Topical GelOriginal Medicationdiclofenac sodium 0.01 MG/MG Topical Gel *Reorder from [facility] for eRx and Interaction Alerts*, Taking Medrol Dosepak ORAL , Notes to Pharmacist: Medrol DosepakOriginal MedicationMedrol Dosepak *Reorder from [facility] for eRx and Interaction Alerts*, Taking methylPREDNISolone 4 MG Tablet Therapy Pack as directed Orally , Notes to Pharmacist: one pack, Taking Nabumetone 500 MG Tablet TAKE 1 TABLET BY MOUTH TWICE A DAY , Medication List reviewed and reconciled with the patient Objective: * Vitals: * Examination: C onstitutional: Constitutional T he [...] Modifiers: 50 * Follow Up: p rn * Billing Information: * Visit Code: * Procedure Codes: 96585 DRAIN/INJECT, JOINT/BURSA. Modifiers: 50 * Electronic signature of RASHAUN RIOS DPM on 04/09/2025 at 10:26 AM CDT Sign off status: Pending * Provider: Melchor Rios DPM Date: 0 02/18/2025 Generated for Lucia alvarez/Salazar/Luis Aitting on: 1 10:26 AM CDT History and Physical Notes * HPI (History [...]
--- NOTE | ~2025-04-09 | XR_ITS ---
EXAMINATION: XR fluoroscopy no charge DATE: 04/09/2025 11:37 INDICATION: MR from ablation at the bilateral L3, L4 and L5 medial branches/dorsal rami TECHNIQUE: 9 fluoroscopic images of the lumbar spine were obtained during procedure performed by Dr. Nelson. Radiologist was not present for the imaging or procedure. The amount of fluoroscopy time used during this procedure was 1.3 minutes. 2 mm radiation dose of 35.46 mGy. COMPARISON: None. FINDINGS: Mild lumbar levocurvature. Images demonstrate needles advanced to the junction of the transverse and superior articular processes bilaterally at L4, L5 and S1 along the course of the bilateral L3, L4 and L5 medial branches respectively. IMPRESSION: 1. Fluoroscopy utilized during pain management procedure the lower lumbar spine. See procedure note for further detail. Reviewed, dictated and finalized at location A. IMPRESSION: 1. Fluoroscopy utilized during pain management procedure the lower lumbar spine . See procedure note for further detail.
[2025-04-09 09:52] VITALS: BP 115/91; PULSE 75; RESP 16; TEMP 36.7; O2SAT 100; BMI 30.7
[2025-04-09] MEDS: DEXTROSE 50% 25 GM/50 ML SYRINGE IV PUSH (10:23)
--- OUTSIDE RECORDS SUMMARY | 2025-04-09 10:26 | XMS_ITS ---
Author Name WARNER DENTON M.D. Address [address] [facility] [address] [place] [address] Phone [phone] Organization [facility] ([facility]) Care Team Providers Care Sexual Assault Counsellor Name Role Phone WARNER DENTON Unavailable [phone] Gina Sun Unavailable [phone] Reason for Referral Not Available Allergies, adverse [...] medical decision making, total time 45-59 minutes [id number] 2024-09-27 No Data Available No Data Availa [...]
[2025-04-09] MEDS: LACTATED RINGERS 1,000 ML 30 ML IV CONT (10:27)
--- NOTE | 2025-04-09 10:27 | WPDANESEPPF ---
Anes - Initial Pre Proc Eval Procedure: Operation Date: 04/09/25 10:45 Proposed Procedures p Thermal Radiofrequency Ablation Bilateral L3, L4, L5 Medial Branch/Dorsal Rami Supplying Bilateral L4-5, L5-S1 Facet Joints under Fluoroscopic Guidance with Contrast Control - Ryder Nelson MD Date/Time: 04/09/25 10:27 Surgeon: Ryder Nelson MD Pre Op Diagnosis: Lumbar Spinal Stenosis w/o Neurogenic Cladication Patient Data Age: 64 Gender: F Height: 1.68 m Weight: 86.3 kg Last Vital Signs Temp 98.1 F 04/09/25 09:52 Pulse 75 04/09/25 09:52 Resp 16 04/09/25 09:52 BP 115/91 H 04/09/25 09:52 Pulse Ox 100 04/09/25 09:52 O2 Del Method Room Air 04/09/25 09:52 Allergies Allergy/AdvReac Type Severity Reaction Status Date / Time No Known Allergies Allergy Verified 04/09/25 09:49 Home Medications ?Medication ?Instructions ?Recorded ?Confirmed ?Type nebulizers #1 ea 10/12/19 03/13/25 Rx vitamin B complex (B 1 tablet PO WEEKLY 08/28/20 04/09/25 History Complex-Vitamin B12 tablet) cholecalciferol (vitamin D3) 125 125 mcg PO DAILY 12/23/20 04/09/25 History mcg (5,000 unit) capsule tramadol 50 mg tablet 50 mg PO Q6H PRN pain 04/26/23 04/09/25 History folic acid 1 mg tablet 1 mg PO DAILY #90 tabs 10/26/23 04/09/25 Rx hydroxychloroquine 200 mg tablet 400 mg (2 x 200 mg) PO DAILY #180 11/01/23 04/09/25 Rx (Plaquenil) tabs methotrexate sodium 2.5 mg tablet 12.5 mg (5 x 2.5 mg) PO WEEKLY #60 11/01/23 04/09/25 Rx tabs atorvastatin 10 mg tablet 10 mg PO DAILY #90 tabs 11/28/23 04/09/25 Rx gabapentin 300 mg capsule 300 mg PO DAILY #90 caps 05/08/24 04/09/25 Rx metformin 500 mg tablet,extended 500 mg PO DAILY #90 tabs 05/08/24 04/09/25 Rx release 24 hr semaglutide 0.25 mg or 0.5 mg (2 0.5 mg (0.736 mL) subcut WEEKLY #3 09/12/24 04/09/25 Rx mg/3 mL) subcutaneous pen injector mL (Ozempic) bupropion HCl 300 mg 24 hr tablet, 300 mg PO QAM #90 tabs 12/19/24 04/09/25 Rx extended release levothyroxine 88 mcg tablet 88 mcg PO DAILY #90 tabs 01/14/25 04/09/25 Rx ondansetron HCl 4 mg tablet 4 mg PO Q8H PRN nausea and vomiting 01/14/25 04/09/25 History ibandronate 150 mg tablet 150 mg PO MONTHLY #7 tabs 02/06/25 04/01/25 Rx buspirone 5 mg tablet 15 mg PO BID 02/08/25 04/09/25 History felodipine 2.5 mg tablet,extended 2.5 mg PO DAILY 02/08/25 04/09/25 History release 24 hr omeprazole 40 mg capsule,delayed 40 mg PO BID 02/08/25 04/09/25 History release trazodone 50 mg tablet 100 mg PO HS 02/08/25 04/09/25 History tizanidine 4 mg tablet 4 mg PO DAILY PRN Pain #90 tabs 02/11/25 04/09/25 Rx triamterene 75 1 tablet PO DAILY #90 tabs 03/13/25 04/09/25 Rx mg-hydrochlorothiazide 50 mg tablet sucralfate 1 gram tablet 1 g PO QID #360 tabs 03/14/25 04/09/25 Rx Laboratory Tests 04/09/25 04/09/25 04/09/25 10:11 10:11 10:18 POC Capillary Glucose 65 mg/dl 65 mg/dl 66 mg/dl (65-105) (65-105) (65-105) Patient hx anesthesia problems: none Family hx anesthesia problems: none Results Review: All pre-operative results and documents have been reviewed as part of the pre-operative evaluation. [facility] Past Medical History Medical History Sacroiliitis Lumbar stenosis 7.12.25Lumbar MR: Severe spondylosis, as detailed above, worst at L4-L5.(At L4-L5, there is diffuse disc bulge with severe facet arthropathy. Moderate to advanced spinal canal stenosis. There is severe left neural foraminal narrowing. Right neural foramen preserved). Chronic compression fracture deformity of L3. Lumbar spondylosis Lumbar radiculopathy Small fiber neuropathy Spinal stenosis at L4-L5 level Encounter for colonoscopy in patient with family history of colon polyps Foot pain Vertigo Headache Abnormal colonoscopy 2016 polyp. repeat in 5 years Anosmia BPPV (benign paroxysmal positional vertigo) Essential hypertension Prediabetes Hypothyroid Human papillomavirus Autoimmune thyroiditis COPD (chronic obstructive pulmonary disease) with acute bronchitis Gastro-esophageal reflux disease without esophagitis Surgical History Surgical History History of back surgery 06.15.20 lumbar facet branch nerve ablation Family History Family History Mother Hypertension Patient's mother is Father Family history of cardiovascular disease Family history of Alzheimer's disease Sibling Family history of cardiovascular disease Grandparent Family history of Alzheimer's disease Other Colon polyp Social History Social History (Updated 03/13/25 @ 13:27 by Amber Lizarraga MA) Smoking packs per day: 1 Smoking cigarettes per day: 20.0 Years smoked: 20 Smoking pack-years: 20.00 Smoking status: Former smoker Tobacco type: cigarettes Smoking end date: 06/27/13 Alcohol intake: current Drinks per week: 4 Alcohol use details: once a week Substance use: never Substance use type: does not use Do You Feel Safe in your Home?: Yes Lack of Transportation: No Lack of Food: Never True Current Housing: I Have Housing Concerned About Future Housing: No Difficulty Paying Gas/Electric Bills: No Difficulty Paying for Meds: No Currently Unemployed: No Education: Bachelor's Degree Difficulty w/ Childcare or Family Care: No Living arrangements: with family Spiritual care concerns: No Anes - Eval Final PreProcedure Day of Procedure 04/09/25 10:27 Heart: regular rate and rhythm Lungs: clear to auscultation Airway: Mallampati scale class II Neurological: alert and oriented Last oral intake: >/= 8 hours ASA classification: III Anesthetic plan: proceed Anesthesia type and monitoring: monitored anesthesia care Results Review: All pre-operative results and documents have been reviewed as part of the pre-operative evaluation. Informed Consent: The patient's anesthetic plan and its attendant risks and benefits were discussed with the patient/family/POA. Questions were solicited and answers provided to the satisfaction of the patient/family/POA.
--- OUTSIDE RECORDS SUMMARY | 2025-04-09 10:27 | XMS_ITS | Patient Health Record ---
Author Organization [facility] candelaria Address [address] [place] [address] Care Team Providers Care Cyber Security Engineer Name Role Phone Gina Sun MD Primary Care Provider Unav ailable Jayne Boland Unavailable [phone] Allergies No Known Allergies Results Component Value Reference Range Notes COMPREHENSIVE METABOLIC PANE Bethany ([id number]) Reviewed date:10/23/2024 08:32:26 AM Interpretation:Lab Result Generalized Performing Lab:SL, [facility] Hospital[facility]gqia33722 Administration [place] [address] [facility] Notes/Report: FASTING: NO FASTING:NO NON-FASTING; NON-FASTING GLUCOSE [...] 08:32:25 AM Interpretation:Lab Result Generalized Performing Lab:YVONNE, [facility] SoftwareLee'[facility] Summit HospitalRqeql65597 Administration Bandar Chaves XbbdrhaIA[address] [facility] Vo Notes/Report: NON-FASTING; NON-FASTING FASTING:NO FASTING: NO WHITE [...] MPV 9.8 7.5-12.5 fL ABSOLUTE NEUTROPHILS 5076 [phone] cells/uL ABSOLUTE LYMPHOCYTES 9950 588-2841 cells/uL ABSOLUTE MONOCYTES 370 200-950 cells/uL ABSOLUTE EOSINOPHILS 96 15-500 cells/uL ABSOLUTE BASOPHILS 37 0-200 cells/uL NEUTROPHILS 68.6 LYMPHOCYTES 24.6 MONOCYTES 5.0 EOSINOPHILS 1.3 BASOPHILS 0.5 UA, reflex Micro to Culture Reviewed date:05/22/2024 04:01:53 PM Interpretation: Performing Lab:[facility] , [facility]. [place] [address] Notes/Report: Color, Ur Yellow Yellow Clarity, Ur [...] tendency for uric acid stone formation. Source: [facility] [employer] Current Interpretive Data was last revised on [...] Rate Reviewed date:05/22/2024 09:15:42 PM Interpretation: Performing Lab:[facility] , [address] [facility]. [place] [address] Notes/Report: ESR 21 1-30 mm/hr Rheumatoid Factor Reviewed date:05/22/2024 04:01:52 PM Interpretation: Performing Lab:[facility] , [address] [employer]. [place] [address] Notes/Report: RF, Afshin 10 <=15 IUnits/mL QTB Gold Reviewed date:05/25/2024 08:25:49 PM Interpretation: Performing Lab:[facility] , [address] [address]. [place] [address] Notes/Report: QuantiFERON TB Gold Negative Negative No [...] Diagnosis of Tuberculosis in Adults and Children [Marcoinscatrachon DM et. al. Clin. Infect. Dis. 2017;64(2):111-115]. The reference range for the 'TB1 Ag minus Nil Result' and 'TB2 Ag minus Nil Result' is an Interferon-gamma level <0.35 IU/mL. TB-Nil 0.00 TB2-Nil 0.00 Mitogen-Nil 2.30 NIL 0.00 Test Performed by: [facility] [address] [place] [address] Store Planner: Austen Tsang Ph.D.; CLIA# [id number] Creatine Kinase Reviewed date:05/22/2024 04:01:52 PM Interpretation: Performing Lab:[facility] , [address] [place] [address]. [place] [address] Notes/Report: Total CK 106 30-200 Units/L Comprehensive metabolic pane l (CMP) Reviewed date:05/22/2024 04:01:52 PM Interpretation: Performing Lab:[facility] , [address] [place] [address]. [place] [address] Notes/Report: Sodium 142 135-145 mmol/L Plasma Potassium [...] C4 Reviewed date:05/22/2024 04:01:52 PM Interpretation: Performing Lab:[facility] , [address] [place] [address]. [place] [address] Notes/Report: Complement, C4 35 10-40 mg/dL Complement C3 Reviewed date:05/22/2024 04:01:52 PM Interpretation: Performing Lab:[facility] , [address] [place] [address]. [place] [address] Notes/Report: Complement, C3 167 90-180 mg/dL CBC w auto diff Reviewed date:05/22/2024 03:35:42 PM Interpretation: Performing Lab:[facility] , [address] [place] [address]. [facility] [address] Notes/Report: WBC 7.6 3.8-9.9 K/cumm Hgb 13.5 11.9-15.5 g/dL Hct 40.6 35.6-45.5 % Platelet Ct 355 150-400 K/cumm MPV 10.4 9.1-12.3 fL RBC 4.45 3.90-5.20 M/cumm MCV 91.2 81.3-96.4 fL MCH 30.3 27.1-33.3 pg MCHC 33.3 32.3-35.7 g/dL RDW CV 14.3 11.1-14.9 % RDW SD 47.8 35.7-48.1 fL NRBC Abs Auto 0.00 0.00-0.01 K/cumm C Reactive Protein Reviewed date:05/22/2024 04:01:52 PM Interpretation: Performing Lab:[facility] , [address] [place] [address]. [facility] [address] Notes/Report: C-Reactive Protein 5.1 <=10.0 mg/L Anti-CCP (Cyclic Citrullinat ed Peptide Ab) Reviewed date:05/23/2024 11:23:29 AM Interpretation: Performing Lab:[facility] , [address] [place] [address]. [facility] [address] Notes/Report: CCP Ab <0.5 <=2.9 units/mL Interpretive data Negative: <3 units/mL Positive: > or equal to 3 units/mL Current interpretive data was last revised on 2016. MIGUEL reflex titer pattern GILMER + dsDNA Reviewed date:05/23/2024 01:08:32 PM Interpretation: Performing Lab:[facility] , [address] [place] [address]. [facility] [address] Notes/Report: MIGUEL, Qual Negative Interpretive Data Normal [...] last revised on 2020. Testing performed by: [facility], [address] [place]., [address] eGFR Reviewed date:05/22/2024 04:01:52 PM Interpretation: Performing Lab:[facility] , [facility]. [facility] [address] Notes/Report: eGFR 60 >=60 mL/min/1.73 m2 Interpretive Data Reference Interval Normal >/= 90 mL/min/1.73m2 Mildly decreased* 60 [...] of Race in Diagnosing Kidney Disease, JASN 202). The CKD-EPI equation should not be used for patients with unstable renal function and has not been validated in children and those over 70. Current interpretive data was last reviewed 2021. Differential Automated Reviewed date:05/22/2024 03:35:41 PM Interpretation: Performing Lab:[facility] , [address] [facility] [facility] [address] Notes/Report: Neut Abs 5.1 1.5-6.5 K/cumm ImmGran Abs 0.0 0.0-0.1 K/cumm Lymphocyte Abs 1.9 0.8-3.3 K/cumm [place] Abs 0.5 0.2-0.8 K/cumm Eos Abs 0.2 [...] Interpretive Data was last revised on 2017. [place] Pct 6.3 Interpretive Data Percent cell count [...] last revised on 2017. COMPREHENSIVE METABOLIC PANE Bethany ([id number]) Reviewed date:03/29/2025 12:38:29 PM Interpretation:Lab Result Generalized Performing Lab:YVONNE, [facility] SoftwareLee[facility] Summit HospitalLfjct[address] [facility]LP[address] [facility] Notes/Report: FASTING: NO FASTING:NO NON-FASTING; NON-FASTING GLUCOSE 89 65-139 mg/dL Non-fasting reference interval UREA NITROGEN (BUN) 18 7-25 mg/dL CREATININE 1.13 0.50-1.05 mg/dL EGFR 55 > OR = 60 mL/min/1.73m2 BUN/CREATININE RATIO 16 6-22 (calc) SODIUM 137 135-146 mmol/L POTASSIUM 3.6 3.5-5.3 mmol/L CHLORIDE 100 98-110 mmol/L CARBON DIOXIDE 28 20-32 mmol/L CALCIUM 9.3 8.6-10.4 mg/dL PROTEIN, TOTAL 6.7 6.1-8.1 g/dL ALBUMIN 4.4 3.6-5.1 g/dL GLOBULIN 2.3 1.9-3.7 g/dL (calc) ALBUMIN/GLOBULIN RATIO 1.9 1.0-2.5 (calc) BILIRUBIN, TOTAL 0.3 0.2-1.2 mg/dL ALKALINE PHOSPHATASE 62 37-153 U/L AST 15 10-35 U/L ALT 17 6-29 U/L CBC (INCLUDES DIFF/PLT) ([id number]) Reviewed date:03/29/2025 12:38:29 PM Interpretation:Lab Result Generalized Performing Lab:YVONNE Se[facility] SoftwareLee'[facility] Summit [id number] [place] [address] [facility] Notes/Report: NON-FASTING; NON-FASTING FASTING:NO FASTING: NO WHITE BLOOD CELL COUNT 5.3 3.8-10.8 Thousand/ uL RED BLOOD CELL COUNT 3.70 3.80-5.10 Million/uL HEMOGLOBIN 12.2 11.7-15.5 g/dL HEMATOCRIT 37.3 35.0-45.0 % MCV 100.8 80.0-100.0 fL MCH 33.0 27.0-33.0 pg MCHC 32.7 32.0-36.0 g/dL For adults, a slight decrease in the calculated MCHC value (in the range of 30 to 32 g/dL) is most likely not clinically significant; however, it should be interpreted with caution in correlation with other red cell parameters and the patient's clinical condition. 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) Referring Provider First Name Epifanio Referring Provider Last Name Dino Referred Organization [facility] janette Referred Provider Jayne Boland Referred Address [address],[place], [place],[address],[place] Referred Provider Specialty Rheumatology Referral Priority Routine Medications Medication SIG (Take, Route, Frequency, Duration) Notes Start Date End Date Status Levothyroxine Sodium 88 MCG 1 tablet in the morning on an empty stomach Orally Once a day; Duration: 30 day(s) Active metFORMIN HCl 500 MG 1 tablet with a artemio l Orally Once a day; Duration: 30 day(s) Active Felodipine ER 2.5 MG 1 tablet Orally Onc e a day; Duration: 30 day(s) Active Gabapentin 300 MG 1 capsule Orally Onc e a day; Duration: 30 day(s) Active Ibandronate Sodium 150 MG Oral; Duration: 90 Days Active Hydroxychloroquine Sulfate 200 MG TAKE 2 TABLETS BY MOUTH EVERY DAY; Duration: 90 Active Triamterene-HCTZ 75-50 MG 1 tablet in th e morning Orally Once a day; Duration: 30 day(s) Active Folic Acid 1 MG TAKE 1 TABLET BY ELAINE TH EVERY DAY; Duration: 90 Active Methotrexate Sodium 2.5 MG TAKE 6 TABLET S BY MOUTHONCE WEEKLY; Duration: 90 Active Wellbutrin XL 300 MG 1 tablet in the mor pepe Orally Once a day Active tiZANidine HCl 4 MG 1 tablet at bedtime as needed Orally Once a day; Duration: 30 day(s) Active Tirzepatide 5 MG/0.5ML as directed Subcutaneous Active traZODone HCl 50 MG 1 tablet at bedtime as needed Orally Once a day; Duration: 30 day(s) Active busPIRone HCl 5 MG 3 tablet Orally Twic e a day Active traMADol HCl 50 MG 1 tablet as needed Orally every 6 hours prn Active Atorvastatin Calcium 10 MG 1 tablet Oral ly Once a day; Duration: 30 day(s) Active Vitamin D3 25 MCG (1000 UT) 1 capsule Or ally Once a day; Duration: 30 day(s) Active Sucralfate 1 GM/10ML 10 mL 1 hour before meals and at bedtime on an empty stomach Orally Four times a day; Duration: 30 day(s) Active Omeprazole 40 MG 1 capsule 1/2 to 1 h our before morning meal Orally Once a day; Duration: 30 day(s) Active Social History Tobacco Use: Social History [...] W/U Status Risk Notes Problem Overlap syndrome (549953059) 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) Active confirmed Problem Overlap syndrome (388072029) Overlap syndrome (M35.1) Active confirmed Problem Mixed connective tissue disease (683486803) Mixed connective tissue disease (M35.1) Active confirmed Problem Inflammatory arthritis (7874847) Inflammatory arthritis (M19.90) Active confirmed Problem Raynaud's disease (156062545) Raynaud's phenomenon without gangrene (I73.00) Active confirmed Vital Signs Heart Rate 71 /min 04/03/2025 Temperature 97.7 degrees Fahrenheit 04/03/2025 Blood pressure diastolic 70 mm Hg 04/03/2025 Oximetry 99 % 04/03/2025 Height-cm 167.64 cm 04/03/2025 Weight-kg 85.78 kg 04/03/2025 Height 66 in 04/03/2025 Blood pressure systolic 108 mm Hg 04/03/2025 Weight 189.1 lbs 04/03/2025 BMI 30.52 kg/m2 04/03/2025 Encounters Encounter Location Date Provider Diagnosis [facility] [place] [address] [place] [address] 05/22/2024 Jayne Du Pain in unspecified joint M25.50 ; Mixed connective tissue disease M35.1 ; High risk medication use Z79.899 and Overlap syndrome M35.[address] [facility] [place] [address] [place] [address] 06/05/2024 Jayne Du Inflammatory arthrit is M19.90 ; Decreased GFR R94.4 and Raynaud's phenomenon without gangrene I73.[address] [facility] [place] [address] [place] [address] 10/22/2024 Jayne Du Inflammatory arthrit is M19.90 ; Decreased GFR R94.4 and Raynaud's phenomenon without gangrene I73.[address] [facility] [place] [address] [place] [address] 01/04/2025 Jayne Du Inflammatory arthrit is M19.90 ; Decreased GFR R94.4 and Raynaud's phenomenon without gangrene I73.[address] [facility] [place] [address] [place] [address] 04/03/2025 Jayne Addy Inflammatory arthrit is M19.90 ; Decreased GFR R94.4 and Raynaud's phenomenon without gangrene I73.[address] [facility] [place] [address] [place] [address] 07/05/2024 Jayne Addy Assessments Encounter Date Diagnosis (ICD Code) Assessment [...] lab order given, return in 3 months 04/03/2025 Inflammatory arthritis (ICD-10 - M19.90) stable for the most part, continue MTX and plaquenil, Xray orders for right knee and left shoulder given, lab order given, return in 3 months 04/03/2025 Decreased GFR (ICD-10 - R94.4) stable for the most part, continue MTX and plaquenil, Xray orders for right knee and left shoulder given, lab order given, return in 3 months [...] lab order given, return in 3 months 04/03/2025 Raynaud's phenomenon without gangrene (ICD-10 - I73.00) stable for the most part, continue MTX and plaquenil, Xray orders for right knee and left shoulder given, lab order given, return in 3 months Plan Of Treatment Pending Test Test Name Order Date X ray : Knees, bilateral, A-P standing 0 01/04/2025 X ray : Knees, bilateral, A-P standing 1 X ray : Hands, bilateral 05/22/2024 X ray : Shoulder, left 04/03/2025 CBC (INCLUDES DIFF/PLT) (6399) COMPREHENSIVE METABOLIC PANEL (89327) Next Appt Details Provider Name:Jayne Addy, 07/02 01:00:00 PM, [address] [facility] [address], [place], [address], Insurance Providers Payer Name Payer Address Payer Phone Subscriber Number Group Number Insured Name Patient Relationship to Insured Coverage Start Date Coverage End Date [facility] [address] [place] [address] [id number] Noni Alonzo Self - patient is the insured Medical (General) History Medical History History ICD Code connective tissue disease, o verlap syndrome, autoimmune thyroiditis, BPPV, COPD, hypertension, GERD, small fiber neuropathy, spinal stenosis L4-5, headache Surgical History Surgery Date(Month/Year) back surgery
--- OUTSIDE RECORDS SUMMARY | 2025-04-09 10:27 | XMS_ITS | Clinical Summary ---
Author Organization [facility] Address [address] [place] [address] Care Team Providers Care Route Driver Salesperson Name Role Phone Epifanio Sun MD Primary Care Provider [phone] Medications traMADol (ULTRAM) 50 MG tablet Take [...] Comments Blood Pressure 143/83 05/06/2023 1:30 PM [facility]OSTESS HOST Pulse 66 05/06/2023 1:30 PM [facility]OSTESS HOST Temperature 36.1 C (97 F) 05/06/2023 1:30 PM HOSTESS HOST Respiratory Rate 16 05/06/2023 1:30 PM HOSTESS HOST Oxygen Saturation 97% 05/06/2023 1:30 PM HOSTESS HOST Inhaled Oxygen Concentration - - Weight 107.7 kg (237 lb 7 oz) 05/06/2023 8:30 AM HOSTESS HOST Height 167.6 cm (5' 6) 05/06/2023 8:30 AM HOSTESS HOST Body Mass Index 38.32 05/06/2023 8:30 AM HOSTESS HOST Plan of Treatment Health Maintenance Due Date Last Done Comments Colorectal Cancer Screening Colonoscopy (10 Years) 1962 Annual Physical 1965 Hepatitis C 1980 DTaP, Tdap and Td Vaccines (1 - Tdap) 1981 Mammogram Screening 2002 Zoster Vaccines (1 of 2) 2012 RSV Immunization or 60+ Years (1 - Risk 60-74 years 1-dose series) 2022 Pneumococcal Vaccine: 50+ Years (3 of 3 - PCV20 or PCV21) 06/14/2024 06/14/2019, 09/22/2017 COVID-19 Vaccine (3 - season) 2025 05/27/2021, 09/01/2020 Influenza Adult (#1) 2025 03/17/2022, 04/08/2021, 06/14/2019, Additional history exists Hepatitis A Vaccines Aged Out No long er eligible based on patient's age to complete this topic Meningococcal B Vaccine Aged Out No l onger eligible based on patient's age to complete this topic Meningococcal Vaccine Aged Out No anahi dallas eligible based on patient's age to complete this topic RSV Immunizations Under 20 Months Aged Out No longer eligible based on patient's age to complete this topic Medical Devices Implanted Type Area Biztalk Administrator Device Identifier Shelf Expiration Date Model / Serial / Lot Toe Tac Xpress Fixation System Implanted:Qty: 2 on 05/06/2023 by Fuad Daugherty DPM at [facility] Left: Foot [employer] 12/20/2025 [id number] / / [id number] Toe Tac Hammertoe Fixation System Implanted:Qty: 1 on 05/06/2023 by Fuad Daugherty DPM at [facility] Left: Foot [employer] 02/08/2025 [id number] / / [id number] Insurance ESSENCE Care Teams Route Driver Salesperson Relationship Specialty Start Date End Date Epifanio Sun MD [facility] [address] [address] PCP - General FAMILY PRACTICE 04/29/23
--- OUTSIDE RECORDS SUMMARY | 2025-04-09 10:27 | XMS_ITS | Patient Health Record ---
Author Organization [facility] Address [address] [place], [place] [id number] Care Team Providers Care Oil Rig Roughneck Name Role Phone RASHAUN RIOS Unavailable [phone] Epifanio Sun Unavailable Unavailable Allergies No Known Allergies Reason For Referral Reason Essence Referral ([id number]) Diagnosis 1 Pain in right ankle and joints of right foot (M25.571) Diagnosis 2 Pain in left ankle a nd joints of left foot (M25.572) Referred Organization [facility] Referred Provider RASHAUN RIOS Referred Address [address],[place], [place],[id number], Referred Provider Specialty Podiatry Referral Priority Routine [...] Referral Organization [facility] Referring Provider First Name RASHAUN Referring [...] phosphate 4 MG/ML Injectable Solution *Reorder from ncyclo for eRx and Interaction Alerts* 12/28/19 19 Active diclofenac sodium 0.01 MG/MG Topical Gel CUTANEOUS diclofenac sodium 0.01 MG/MG Topical GelOriginal Medicationdiclofenac sodium 0.01 MG/MG Topical Gel *Reorder from ncyclo for eRx and Interaction Alerts* 04/24/20 18 Active Medrol Dosepak ORAL Medrol DosepakOr iginal MedicationMedrol Dosepak *Reorder from ncyclo for eRx and Interaction Alerts* 02/07/20 18 Active Immunizations Vaccine Route Administration Date Status Comme nts Influenza, high dose seasonal Unknown 06/13/2023 Admini stered Vital Signs Height-cm 167.64 cm 12/10/2024 Weight-kg 99.79 kg 12/10/2024 Height 66.00 in 12/10/2024 Weight 220 lbs 12/10/2024 BMI 35.51 kg/m2 12/10/2024 Encounters Encounter Location Date Provider Diagnosis [facility] [address] [place] [id number] 02/18/2025 RASHAUN SNHUYK Other specified rheumatoid arthritis, right ankle and [...] in right foot M79.671 [facility] [address] [place] [id number] 09/03/2024 RASHAUN SNOOK Other specified rheumatoid arthritis, left ankle and foot M06.872 ; Other specified rheumatoid arthritis, right ankle and foot M06.871 ; Pain in right foot M79.671 and Pain in left toe(s) M79.675 [facility] [address] [place], [place] [id number] 12/10/2024 RASHAUN RIOS Other specified rheumatoid arthritis, [...] Treatment Notes Treatment Clinical Notes Section Notes 09/03/2024 Other specified rheumatoid arthritis, right ankle [...] Pain in right foot (ICD-10 - M79.671) 09/03/2024 Pain in left toe(s) (ICD-10 - [...] Coverage Start Date Coverage End Date [facility] [employer] [address] [place] [id number] MARYCARMEN HERMAN Self - patient is the insured
--- NOTE | 2025-04-09 10:43 | SUR.PREOP ---
Initial finger stick [address] alberto notified. d50 given. Recheck 121. will continue to monitor
--- NOTE | 2025-04-09 10:51 | WPDHPUPDATE1 ---
History and Physical Update Update Date/Time: 04/09/25 10:51 History and Physical has been reviewed, including an updated exam of the patient. There are NO changes in the patient's condition. Risks, benefits, and alternatives have been discussed and questions answered. Patient agrees to proceed with procedure.
--- NOTE | 2025-04-09 10:52 | W.PM.PROC2 ---
Procedure Note - Detailed Date of Procedure 04/09/25 Pre-op Diagnosis Lumbar Spinal Stenosis w/o Neurogenic Cladication Post-op Diagnosis Same Procedure Performed Thermal Radiofrequency Ablation of the bilateral Lumbar Medial Branches/Dorsal Ramus at the L3, L4, L5 Levels Treating the bilateral L4-5, L5-S1 Facet Joints Under Fluoroscopic Guidance (4 Levels Treated). Surgeon Ryder Nelson MD Filter Operator None. Anesthesia Local (w/ MAC) Description of Procedure INFORMED CONSENT: Risks, benefits and alternatives to the procedure were discussed in detail with the patient who expressed explicit understanding and consent to proceed. Patient was informed verbally and in written form regarding the risks associated with the procedure including the low risk of serious infection, bleeding/bruising, allergic reaction, nerve or organ injury, paralysis, procedural site pain or discomfort, worsening pain and/or mobility, failure to treat and/or disfigurement. The patient expressed explicit understanding and consent to proceed. All materials required for the procedure were available prior to procedure start. Site and side were marked prior to procedure and confirmed in the presence of the patient. PROCEDURE IN DETAIL: The patient was brought to the procedural suite and placed in the prone position. Patient was made comfortable with use of pillows under the head/chest, hips and ankles. ASA standard monitors were applied and used throughout the procedure. Skin overlying the injection site on the affected side(s) was prepared broadly with ChloraPrep applicator and draped in a sterile manner. Aseptic technique was used throughout. The endplates of the vertebral bodies at the site(s) of interest were aligned in the AP view. Ipsilateral oblique angulation was utilized to optimize visualization of the intersection between the superior articulating process and transverse process at each target site. Local anesthesia was established by infiltration with approximately 5 mL of 1% lidocaine via a 1-1/2 inch 27-gauge needle divided over each site treated. A 16-gauge 150mm QuikCycleian RF needle with curved 10mm active tip was advanced in the AP view until the needle tip contacted the periosteum at the target site, the right L3 medial branch. Lateral view was utilized to adjust and confirm the appropriate placement of the needle tip just anterior to the facet line, superior to the pedicle and posterior to the foramen. Grounding electrode was in place and functioning. The appropriately-sized RF cannula was inserted into the RF needle and motor stimulation was performed with no subjective or objective evidence of recruited muscle activity with stimulation up to 2.0 volts at a frequency of 2Hz. 1.5 mL of 2.0% PF lidocaine was injected after negative aspiration. After a 90s pause, lesioning was performed to 90 degrees centigrade for 90s ensuring lack of symptoms in the extremity throughout. Needle was rotated 180 degrees and lesioning repeated in a similar manner. Patient tolerated this well. No paresthesias were elicited. Needle was removed completely intact without difficulty. The same procedure was repeated for all intended levels/ structures on the ipsilateral side, right L4, L5 medial branch/dorsal ramus with identical methodology, modified to compensate for new location, with similar results and no evidence of complication. The same exact procedure was repeated for all remaining levels on the contralateral side, left L3, L4, L5 medial branches/dorsal ramus, modified as necessary to accommodate for the new target location with identical findings/results and no evidence of complication. Images were saved and documented in the patient chart. Patient's skin was cleansed and sterile bandage applied. The patient tolerated the procedure well. The patient was transported to the recovery area in stable condition where they were observed for an appropriate amount of time prior to discharge, without evidence of complication. The patient was instructed to avoid excessive activity for the next 48 hours, including climbing and frequent use of stairs. Showers only for 48 hours. They were instructed not to drive or operate heavy machinery for 24 hours. They are to monitor for severe headaches, fevers, chills, night sweats, erythema/swelling at the site or any other signs of infection, bleeding/bruising, bowel or bladder changes as well as new pain, weakness or numbness in the upper or lower extremity. Should they notice these changes, they are instructed to call our office immediately or report directly to the nearest Emergency Department if no answer or if after posted office hours. COMPLICATIONS: None COMMENTS: None Complications No immediate complications Condition Stable Disposition PACU [facility] Billing Surgery - Charge Forward: Surgery Billing
[2025-04-09] MEDS: BUPivacaine HCL 0.5% 10 ML AMP (11:16)
[2025-04-09] MEDS: LIDOCAINE 2% PF LOCAL INJ 5 ML VIAL 10 ML (11:16)
[2025-04-09 11:33] VITALS: BP 138/75; PULSE 65; RESP 16; O2SAT 100
[2025-04-09] MEDS: DEXTROSE 50% 25 GM/50 ML SYRINGE (11:40)
[2025-04-09 12:00] VITALS: BP 107/73; PULSE 63; RESP 18; O2SAT 100
== END 2025-04-09 12:18 | disposition home or self-care (01) ==
PROVIDERS: PCP Family Medicine; Visit Provider Anesthesiology Pain Medicine
PROC: (CPT 64635; principal; 2025-04-09 10:45)
DX: M47.816 Spondylosis without myelopathy or radiculopathy, lumbar region (principal); M48.061 Spinal stenosis, lumbar region without neurogenic claudication
CPT/HCPCS: 64635 ×2; 64636 ×6; 99199

== ENCOUNTER 2025-05-20 06:56 | Day surgery (SDC) | payer OTHER, SELFPAY ==
--- OUTSIDE RECORDS SUMMARY | 2025-02-18 04:50 | XMS_ITS ---
Author Organization [facility] Address [address] [place], [place] [id number] Care Team Providers Care Button Reclaimer Name Role Phone RASHAUN RIOS Unavailable [phone] Epifanio Sun Unavailable Unavailable REASON FOR VISIT The patient has RA and cortisone injections below her ankles helps her manage her pain Medications Medication SIG (Take, Route, Frequency, Duration) Notes Start Date End Date Status methylPREDNISolone 4 MG Tablet Therapy Pack as directed Orally one pack 02/08/20 23 Active Nabumetone 500 MG Tablet TAKE 1 TABLET BY MOUTH TWICE A DAY; Duration: 90 Active dexamethasone phosphate 4 MG/ML Injectable Solution dexamethasone phosphate 4 MG/ML Injectable SolutionOriginal Medicationdexamethasone phosphate 4 MG/ML Injectable Solution *Reorder from [employer] for eRx and Interaction Alerts* 12/28/19 19 Active diclofenac sodium 0.01 MG/MG Topical Gel CUTANEOUS diclofenac sodium 0.01 MG/MG Topical GelOriginal Medicationdiclofenac sodium 0.01 MG/MG Topical Gel *Reorder from [employer] for eRx and Interaction Alerts* 04/24/20 18 Active Medrol Dosepak ORAL Medrol DosepakOr iginal MedicationMedrol Dosepak *Reorder from [employer] for eRx and Interaction Alerts* 02/07/20 18 Active Social History Social History Additional Details Category Social Info Options Details Migrated Social History Migrated Social History Alcohol intake : , History of tobacco use : , Smoking Status : Former smoker Encounters Encounter Location Date Provider Diagnosis [facility] [address] [place], [place] [id number] 02/18/2025 RASHAUN RIOS Other specified rheumatoid arthritis, right ankle and [...] Treatment Notes Treatment Clinical Notes Section Notes 02/18/2025 Other specified rheumatoid arthritis, right ankle and foot (ICD-10 - M06.871) Kenalog Injection: Following skin prep, a total of 3 ccs of a 1-1-1 mix of 0.5% marcaine plain, 1% lidocaine plain, and Kenalog was injected to the right sinus tarsi 02/18/2025 Other specified rheumatoid arthritis, left ankle and [...] Kenalog was injected to the left forefoot. 02/18/2025 Pain in right ankle and joints of right foot (ICD-10 - M25.571) 02/18/2025 Pain in left ankle and joints of left foot (ICD-10 - M25.572) 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) 02/18/2025 Pain in left toe(s) (ICD-10 - M79.675) 02/18/2025 Primary osteoarthritis, right ankle and foot (ICD-10 - M19.071) 02/18/2025 Pain in right foot (ICD-10 - M79.671) Plan Of Treatment Treatment Notes Assessment Notes Other specified rheumatoid a rthritis, right ankle and foot Kenalog Injection: Following skin prep, a total of 3 ccs of a 1-1-1 mix of 0.5% marcaine plain, 1% lidocaine plain, and Kenalog was injected to the right sinus tarsi Other specified rheumatoid a rthritis, left ankle and foot Arthritis, Rheumatoid: I discussed anti-inflammatory treatment options and various means of immobilization with the patient. I educated the patient on icing and stretching, supportive shoegear, and the use of orthotic devices and bracing. Kenalog Injection: Following skin prep, a total of 3 ccs of a 1-1-1 mix of 0.5% marcaine plain, 1% lidocaine plain, and Kenalog was injected to the left forefoot. Next Appt Details Follow Up: prn, Reason: Provider Name:RASHAUN RIOS, 12:30:00 PM, [address] [place], [place], [id number], Provider Name:RASHAUN RIOS, 10:50:00 AM, [address] [facility], [facility], [address], [place], [place], [id number], History and Physical Notes * HPI (History of Present Illness) Category Sub-Category Detail Notes Category Not es HPI New Complaint Established reginald ent presents with a new complaint., Patient complains of an issue to wanting bilateral injections in the ankle and one on the top of the left foot., Patient denies any injury., MA: mf Examination Category Sub-Category Detail Notes Category Not es Dermatologic Skin findings: Skin is warm, dr y, supple with no breaks in the skin Neurologic Gross sensation Gross sensation is intact to light touch Vascular Dorsalis pedis pulse: 2/4, bilateral Edema: No edema, bilateral Capillary refill: less than 3 seconds Posterior tibial pulse: 2/4, bilateral Musculoskeletal Muscle Strength Muscle strength is 5/5 in regards to dorsiflexion, plantarflexion, inversion, and eversion in bilateral lower extremities Pain on palpation lateral portal of th e right sinus tarsi and with ROM of the subtalar joint., lateral portal of the left sinus tarsi and with ROM of the subtalar joint. Constitutional Constitutional The patient is a wake, alert, well developed, well groomed and well nourished Progress Notes * MARYCARMEN HERMAN:[birth year] (64 yo F)Acc No.[id number]:02/18/2025 Patient: MARYCARMEN KUMARI Provider: Melchor Rios DPM :1960 A ge:64 Y S ex:Female Date:02/18/2025 Address:[address] [place] [address] Subjective: * Chief Complaints: * T he patient has RA and cortisone injections below her ankles helps her manage her pain * HPI: H PI: New Complaint E stablished patient presents with a new complaint., Patient complains of an issue to wanting bilateral injections in the ankle and one on the top of the left foot., Patient denies any injury., MA: mf. * ROS: G eneral / Constitutional: Patient denies c hills, fever, weakness, night sweats. M usculoskeletal: Patient denies c hildhood foot problems, weakness. ? P eripheral Vascular: Patient denies u lceration of feet, cold extremities. ? S kin: Patient denies u lcerations, discoloration. ? N eurologic: Patient denies b alance difficulty, confusion, difficulty speaking, dizziness. * Family History: F ather: PRN - Father: . M other: PRN - Mother: :: Foot problem,,known absent . S ister: SIB - Sister: :: Hypertension,,known absent . F amily History Verified.. * Social History: M igrated Social History: M igrated Social History: Alcohol intake : , History of tobacco use : , Smoking Status : Former smoker. Social History Verified. * Medications: T akingdexamethasone phosphate 4 MG/ML Injectable Solution , Notes to Pharmacist: dexamethasone phosphate 4 MG/ML Injectable SolutionOriginal Medicationdexamethasone phosphate 4 MG/ML Injectable Solution *Reorder from [employer] for eRx and Interaction Alerts*diclofenac sodium 0.01 MG/MG Topical Gel CUTANEOUS , Notes to Pharmacist: diclofenac sodium 0.01 MG/MG Topical GelOriginal Medicationdiclofenac sodium 0.01 MG/MG Topical Gel *Reorder from [employer] for eRx and Interaction Alerts*Medrol Dosepak ORAL , Notes to Pharmacist: Medrol DosepakOriginal MedicationMedrol Dosepak *Reorder from [facility] for eRx and Interaction Alerts*methylPREDNISolone 4 MG Tablet Therapy Pack as directed Orally , Notes to Pharmacist: one packNabumetone 500 MG Tablet TAKE 1 TABLET BY MOUTH TWICE A DAY Medication List reviewed and reconciled with the patientTaking dexamethasone phosphate 4 MG/ML Injectable Solution , Notes to Pharmacist: dexamethasone phosphate 4 MG/ML Injectable SolutionOriginal Medicationdexamethasone phosphate 4 MG/ML Injectable Solution *Reorder from [facility] for eRx and Interaction Alerts*Taking diclofenac sodium 0.01 MG/MG Topical Gel CUTANEOUS , Notes to Pharmacist: diclofenac sodium 0.01 MG/MG Topical GelOriginal Medicationdiclofenac sodium 0.01 MG/MG Topical Gel *Reorder from [facility] for eRx and Interaction Alerts*Taking Medrol Dosepak ORAL , Notes to Pharmacist: Medrol DosepakOriginal MedicationMedrol Dosepak *Reorder from [facility] for eRx and Interaction Alerts*Taking methylPREDNISolone 4 MG Tablet Therapy Pack as directed Orally , Notes to Pharmacist: one packTaking Nabumetone 500 MG Tablet TAKE 1 TABLET BY MOUTH TWICE A DAY Medication List reviewed and reconciled with the patient Objective: * Examination: C onstitutional: Constitutional T he patient is awake, alert, well developed, well groomed and well nourished. D ermatologic: Skin findings: S kin is warm, dry, supple with no breaks in the skin. V ascular: Dorsalis pedis pulse: 2 /4, bilateral. Posterior tibial pulse: 2 /4, bilateral. Capillary refill: l ess than 3 seconds. Edema: N o edema, bilateral. N eurologic: Gross sensation G ross sensation is intact to light touch.? M usculoskeletal: Muscle Strength M uscle strength is 5/5 in regards to dorsiflexion, plantarflexion, inversion, and eversion in bilateral lower extremities. Pain on palpation l ateral portal of the right sinus tarsi and with ROM of the subtalar joint., lateral portal of the left sinus tarsi and with ROM of the subtalar joint.. Assessment: * Assessment: 1. O ther specified rheumatoid arthritis, left ankle and foot - M06.872 (Primary) ?2. O ther specified rheumatoid arthritis, right ankle and foot - M06.871 3 .?Pain in right ankle and joints of right foot - M25.571 4 . P ain in left ankle and joints of left foot - M25.572 5 . P rimary osteoarthritis, left ankle and foot - M19.072 6 . P ain in left toe(s) - M79.675 7 . P rimary osteoarthritis, right ankle and foot - M19.071 8 . P ain in right foot - M79.671 Plan: * Treatment: 2. O ther specified rheumatoid arthritis, right ankle and foot Notes: Kenalog Injection: Following skin prep, a total of 3 ccs of a 1-1-1 mix of 0.5% marcaine plain, 1% lidocaine plain, and Kenalog was injected to the right sinus tarsi * Procedure Codes: 2 0605 DRAIN/INJECT, JOINT/BURSA, Modifiers: 50 * Follow Up: p rn Billing Information: * Procedure Codes: 20927 DRAIN/INJECT, JOINT/BURSA. Modifiers: 50 * Electronic signature of RASHAUN RIOS DPM on 05/20/2025 at 06:59 AM PAINTER APPRENTICE Sign off status: Pending * Provider: Melchor Rios DPM Date: 0 02/18/2025 Generated for Lucia alvarez/Salazar/Chris on: 1 07/20/2024 06:59 AM PAINTER APPRENTICE
--- OUTSIDE RECORDS SUMMARY | 2025-05-06 04:40 | XMS_ITS ---
Author Organization [facility] Address [address] [place], [place] [id number] Care Team Providers Care Shader And Toner Name Role Phone RASHAUN RIOS Unavailable [phone] Epifanio Sun Unavailable Unavailable Allergies No Known Allergies REASON FOR VISIT The patient presents with multiple foot concerns. She has RA and has pain in both of her ankles. She would like cortisone injections for the pain., The RA has also deformed her right foot. She has severe hammertoe deformity that is painful and makes wearing shoes near impossible for her. She had surgery on her left foot and would like the same for her right Medications Medication SIG (Take, Route, Frequency, Duration) Notes Start Date End Date Status Nabumetone 500 MG Tablet TAKE 1 TABLET BY MOUTH TWICE A DAY; Duration: 90 Active methylPREDNISolone 4 MG Tablet Therapy Pack as directed Orally one pack 02/08/20 23 Active Medrol Dosepak ORAL Medrol DosepakOr iginal MedicationMedrol Dosepak *Reorder from [facility] for eRx and Interaction Alerts* 02/07/20 18 Active diclofenac sodium 0.01 MG/MG Topical Gel CUTANEOUS diclofenac sodium 0.01 MG/MG Topical GelOriginal Medicationdiclofenac sodium 0.01 MG/MG Topical Gel *Reorder from [facility] for eRx and Interaction Alerts* 04/24/20 18 Active dexamethasone phosphate 4 MG/ML Injectable Solution dexamethasone phosphate 4 MG/ML Injectable SolutionOriginal Medicationdexamethasone phosphate 4 MG/ML Injectable Solution *Reorder from [facility] for eRx and Interaction Alerts* 12/28/19 19 Active Social History Social History Additional Details Category Social Info Options Details Migrated Social History Migrated Social History Alcohol intake : , History of tobacco use : , Smoking Status : Former smoker Vital Signs Height 66.00 in 05/06/2025 Weight 220 lbs 05/06/2025 BMI 35.51 kg/m2 05/06/2025 Height-cm 167.64 cm 05/06/2025 Weight-kg 99.79 kg 05/06/2025 Encounters Encounter Location Date Provider Diagnosis [facility] [address] [place], [place] [id number] 05/06/2025 RASHAUN RIOS Other specified rheumatoid arthritis, right ankle and foot M06.871 ; Other specified rheumatoid arthritis, left ankle and foot M06.872 ; Pain in right ankle and joints of right foot M25.571 ; Pain in left ankle and joints of left foot M25.572 ; Other hammer toe(s) (acquired), right foot M20.41 and Other hammer toe(s) (acquired), left foot M20.42 Assessments Encounter Date Diagnosis (ICD Code) Assessment Notes Treatment Notes Treatment Clinical Notes Section Notes 05/06/2025 Other specified rheumatoid arthritis, right ankle and foot (ICD-10 - M06.871) Kenalog Injection: Following skin prep, a total of 3 ccs of a 1-1-1 mix of 0.5% marcaine plain, 1% lidocaine plain, and Kenalog was injected to the right sinus tarsi 05/06/2025 Other specified rheumatoid arthritis, left ankle and foot (ICD-10 - M06.872) Arthritis, Rheumatoid: I discussed anti-inflammatory treatment options and various means of immobilization with the patient. I educated the patient on icing and stretching, supportive shoegear, and the use of orthotic devices and bracing. 05/06/2025 Pain in right ankle and joints of right foot (ICD-10 - M25.571) Kenalog Injection: Following skin prep, a total of 3 ccs of a 1-1-1 mix of 0.5% marcaine plain, 1% lidocaine plain, and Kenalog was injected to the right sinus tarsi 05/06/2025 Pain in left ankle and joints of left foot (ICD-10 - M25.572) Kenalog Injection: Following skin prep, a total of 3 ccs of a 1-1-1 mix of 0.5% marcaine plain, 1% lidocaine plain, and Kenalog was injected to the left sinus tarsi 05/06/2025 Other hammer toe(s) (acquired), right foot (ICD-10 - M20.41) Hammertoe Deformity: Discussed various treatments for hammer toes with the patient . Discussed conservative care consisting of padding, wider shoes, anti-inflammatorie s, and orthotics. Discussed surgical treatment options and answered all questions about the intra-operative and post-operative treatment course. Surgical Consult: Surgical Consent The patient understands there are no guarantees. There is a chance of: 1. Infection 2. Failure or rejection of implant 3. Overcorrection 4. Undercorrection 5. Non resolution of the problem 6. Return of the problem 7. Numbness 8. Anesthetic reaction 9. Healing problems or blood clot 10. Additional or revisional surgery may be required if complications occur The patient had no further question and has agreed to undergo surgical correction of the admitting diagnosis. Patient has signed the written consent form at this time. Proposed procedures: 1) 2nd Metatarsal Head Resection, right foot. 2) 3rd Metatarsal Head Resection, right foot. 3) 4th Metatarsal Head Resection, right foot. 4) 5th Metatarsal Head Resection, right foot. 5) 2nd Digit Hammertoe correction with hardware, right foot. 6) 3rd Digit Hammertoe correction with hardware, right foot. 7) 4th Digit Hammertoe correction with hardware, right foot. 05/06/2025 Other hammer toe(s) (acquired), left foot (ICD-10 - M20.42) Plan Of Treatment Treatment Notes Assessment Notes [...] the use of orthotic devices and bracing. Pain in right ankle and join ts of right foot Kenalog Injection: Following skin prep, a total of 3 ccs of a 1-1-1 mix of 0.5% marcaine plain, 1% lidocaine plain, and Kenalog was injected to the right sinus tarsi Pain in left ankle and joint s of left foot Kenalog Injection: Following skin prep, a total of 3 ccs of a 1-1-1 mix of 0.5% marcaine plain, 1% lidocaine plain, and Kenalog was injected to the left sinus tarsi Other hammer toe(s) (acquire d), right foot Hammertoe Deformity: Discussed various treatments for hammer toes with the patient . Discussed conservative care consisting of padding, wider shoes, anti-inflammatories, and orthotics. Discussed surgical treatment options and answered all questions about the intra-operative and post-operative treatment course. Surgical Consult: Surgical Consent The patient understands there are no guarantees. There is a chance of: 1. Infection 2. Failure or rejection of implant 3. Overcorrection 4. Undercorrection 5. Non resolution of the problem 6. Return of the problem 7. Numbness 8. Anesthetic reaction 9. Healing problems or blood clot 10. Additional or revisional surgery may be required if complications occur The patient had no further question and has agreed to undergo surgical correction of the admitting diagnosis. Patient has signed the written consent form at this time. Proposed procedures: 1) 2nd Metatarsal Head Resection, right foot. 2) 3rd Metatarsal Head Resection, right foot. 3) 4th Metatarsal Head Resection, right foot. 4) 5th Metatarsal Head Resection, right foot. 5) 2nd Digit Hammertoe correction with hardware, right foot. 6) 3rd Digit Hammertoe correction with hardware, right foot. 7) 4th Digit Hammertoe correction with hardware, right foot. Next Appt Details Follow Up: prn, Reason: Provider Name:RASHAUN RIOS, 12:30:00 PM, [address] [place], [place], [id number], Provider Name:RASHAUN RIOS, 10:50:00 AM, [address] [facility] [address], [place], [place], [id number], History and Physical Notes * HPI (History of Present Illness) Category Sub-Category Detail Notes Category Not es HPI New Complaint Established reginald ent presents with a new complaint., Patient complains of an issue to right foot surgery consult, Duration of problem is 10 years., Patient denies any injury. Patient complaints to pain in left foot and possible injection therapy today. MA: ND Examination Category Sub-Category Detail Notes Category Not [...] and with ROM of the subtalar joint. Hammertoes Dorsally contracted digits 2 right. The deformity is rigid and nonreducible. Pain on palpation to the lesser metatarsalphalangeal joints 2,3,4, and 5 of the right foot Constitutional Constitutional The patient is a wake, alert, well developed, well groomed and well nourished Radiographs Right Foot Severe contractu re of the lesser digits of the right foot. The joints are dislocated or subluxed at 2nd, 3rd, 4th, and 5th MPJs Xray Order Test Requested: 3 Vi ews Weightbearing (AP, LAT, Oblique) Foot, right Progress Notes * MARYCARMEN HERMAN MDOB:[birth year] (64 yo F)Acc No.[id number]:05/06/2025 Patient: Emerita MARYCARMEN TOMAS Libra Provider: Melchor Rios DPM :1960 A ge:64 Y S ex:Female Date:05/06/2025 Address:[address] [place], [place] [id number] Subjective: * Chief Complaints: * T he patient presents with multiple foot concerns. She has RA and has pain in both of her ankles. She would like cortisone injections for the pain. The RA has also deformed her right foot. She has severe hammertoe deformity that is painful and makes wearing shoes near impossible for her. She had surgery on her left foot and would like the same for her right * HPI: H PI: New Complaint E stablished patient presents with a new complaint., Patient complains of an issue to right foot surgery consult, Duration of problem is 10 years., Patient denies any injury. Patient complaints to pain in left foot and possible injection therapy today. MA: ND. * ROS: G eneral / Constitutional: Patient denies c hills, fever, weakness, night sweats. M usculoskeletal: Patient denies c hildhood foot problems, weakness. ? P eripheral Vascular: Patient denies u lceration of feet, cold extremities. ? S kin: Patient denies u lcerations, discoloration. ? N eurologic: Patient denies b alance difficulty, confusion, difficulty speaking, dizziness. * Medical History: Denies Past Medical History No Medical History Documented Medical History Verified * Surgical History: Denies Past Surgical History. Surgical History verified. * Hospitalization/Major Diagno stic Procedure: Denies Past Hospitalization. Hospitalization Verified. * Family History: F ather: PRN - [...] phosphate 4 MG/ML Injectable Solution *Reorder from [facility] for eRx and Interaction Alerts*diclofenac sodium 0.01 MG/MG Topical Gel CUTANEOUS , Notes to Pharmacist: diclofenac sodium 0.01 MG/MG Topical GelOriginal Medicationdiclofenac sodium 0.01 MG/MG Topical Gel *Reorder from [facility] for eRx and Interaction Alerts*Medrol Dosepak ORAL , Notes to Pharmacist: Medrol DosepakOriginal MedicationMedrol Dosepak *Reorder from [facility] for eRx and Interaction Alerts*methylPREDNISolone 4 MG Tablet Therapy Pack as directed Orally , Notes to Pharmacist: one packNabumetone 500 MG Tablet TAKE 1 TABLET BY MOUTH TWICE A DAY Medication List reviewed and reconciled with the patientTaking dexamethasone phosphate 4 MG/ML Injectable Solution , Notes to Pharmacist: dexamethasone phosphate 4 MG/ML Injectable SolutionOriginal Medicationdexamethasone phosphate 4 MG/ML Injectable Solution *Reorder from [facility] for eRx and Interaction Alerts*Taking diclofenac sodium 0.01 MG/MG Topical Gel CUTANEOUS , Notes to Pharmacist: diclofenac sodium 0.01 MG/MG Topical GelOriginal Medicationdiclofenac sodium 0.01 MG/MG Topical Gel *Reorder from [facility] for eRx and Interaction Alerts*Taking Medrol Dosepak ORAL , Notes to Pharmacist: Medrol DosepakOriginal MedicationMedrol Dosepak *Reorder from [facility] for eRx and Interaction Alerts*Taking methylPREDNISolone 4 MG Tablet Therapy Pack as directed Orally , Notes to Pharmacist: one packTaking Nabumetone 500 MG Tablet TAKE 1 TABLET BY MOUTH TWICE A DAY Medication List reviewed and reconciled with the patient * Allergies: N .K.D.A.yesAllergies Verified. Objective: * Vitals: W t:220lbs, Wt-k.79 kg, Ht: 66.00 in, Ht-cm: 167.64 cm, BMI:35.51Index, Body Surface Area: 2.15. * Examination: C onstitutional: Constitutional T he [...] and with ROM of the subtalar joint.. Hammertoes D orsally contracted digits 2 right. T he deformity is rigid and nonreducible. Pain on palpation to the lesser metatarsalphalangeal joints 2,3,4, and 5 of the right foot. R adiographs: Right Foot S evere contracture of the lesser digits of the right foot. The joints are dislocated or subluxed at 2nd, 3rd, 4th, and 5th MPJs. Xray Order T est Requested: 3 Views Weightbearing (AP, LAT, Oblique) Foot, right. Assessment: * Assessment: 1. O ther specified rheumatoid arthritis, left ankle and foot - M06.872 (Primary) ?2. O ther specified rheumatoid arthritis, right ankle and foot - M06.871 3 .?Pain in right ankle and joints of right foot - M25.571 4 . P ain in left ankle and joints of left foot - M25.572 5 . O ther hammer toe(s) (acquired), right foot - M20.41 6 . O ther hammer toe(s) (acquired), left foot - M20.42 ? Plan: * Treatment: 2. O ther specified rheumatoid arthritis, right ankle and foot Notes: Kenalog Injection: Following skin prep, a total of 3 ccs of a 1-1-1 mix of 0.5% marcaine plain, 1% lidocaine plain, and Kenalog was injected to the right sinus tarsi 3. P ain in right ankle and joints of right foot Notes: Kenalog Injection: Following skin prep, a total of 3 ccs of a 1-1-1 mix of 0.5% marcaine plain, 1% lidocaine plain, and Kenalog was injected to the right sinus tarsi 4. P ain in left ankle and joints of left foot Notes: Kenalog Injection: Following skin prep, a total of 3 ccs of a 1-1-1 mix of 0.5% marcaine plain, 1% lidocaine plain, and Kenalog was injected to the left sinus tarsi 5. O ther hammer toe(s) (acquired), right foot Notes: Hammertoe Deformity: Discussed various treatments for hammer toes with the patient . Discussed conservative care consisting of padding, wider shoes, anti-inflammatories, and orthotics. Discussed surgical treatment options and answered all questions about the intra-operative and post-operative treatment course. Surgical Consult: Surgical Consent The patient understands there are no guarantees. There is a chance of: 1. Infection 2. Failure or rejection of implant 3. Overcorrection 4. Undercorrection 5. Non resolution of the problem 6. Return of the problem 7. Numbness 8. Anesthetic reaction 9. Healing problems or blood clot 10. Additional or revisional surgery may be required if complications occur The patient had no further question and has agreed to undergo surgical correction of the admitting diagnosis. Patient has signed the written consent form at this time. Proposed procedures: 1) 2nd Metatarsal Head Resection, right foot. 2) 3rd Metatarsal Head Resection, right foot. 3) 4th Metatarsal Head Resection, right foot. 4) 5th Metatarsal Head Resection, right foot. 5) 2nd Digit Hammertoe correction with hardware, right foot. 6) 3rd Digit Hammertoe correction with hardware, right foot. 7) 4th Digit Hammertoe correction with hardware, right foot. * Follow Up: p rn * Electronic signature of RASHAUN RIOS DPM on 05/20/2025 at 06:59 AM CHANGE MANAGEMENT DIRECTOR Sign off status: Pending * Provider: Melchor Rios DPM Date: 07/06/2024 Generated for Lucia alvarez/Salazar/Chris on: 07/20/2024 06:59 AM CHANGE MANAGEMENT DIRECTOR
[2025-05-13 07:51] VITALS: BMI 30.6
[2025-05-14 09:51] VITALS: BMI 30.6
--- NOTE | ~2025-05-20 | XR_ITS ---
Intraoperative images, fluoroscopy time 20 seconds Reviewed, dictated and finalized at location P. NE GUIDE
--- NOTE | 2025-05-20 05:37 | WPDHPUPDATE1 ---
History and Physical Update Update Date/Time: 05/20/25 05:37 History and Physical has been reviewed, including an updated exam of the patient. There are NO changes in the patient's condition. Risks, benefits, and alternatives have been discussed and questions answered. Patient agrees to proceed with procedure.
--- NOTE | 2025-05-20 05:39 | W.PM.PROC2 ---
Procedure Note - Detailed Date of Procedure 05/20/25 Pre-op Diagnosis Lumbar Radiculopathy and Spinal Stenosis Post-op Diagnosis Same Procedure Performed Left Lumbar Transforaminal Epidural Steroid Injection under Fluoroscopic Guidance and with Contrast Control at L4-5. Surgeon Ryder Nelson MD Anesthesia Local Description of Procedure INFORMED CONSENT: Risks, benefits and alternatives to the procedure were discussed in detail with the patient who expressed explicit understanding and consent to proceed. Patient was informed verbally and in written form regarding the risks associated with the procedure including the low risk of serious infection, bleeding/bruising, allergic reaction, nerve or organ injury, paralysis, procedural site pain or discomfort, worsening pain and/or mobility, failure to treat and/or disfigurement. The patient expressed explicit understanding and consent to proceed. All materials required for the procedure were available prior to procedure start. Site and side was marked prior to procedure and confirmed in the presence of the patient. PROCEDURE IN DETAIL: The patient was brought to the procedural suite and placed in the prone position. Patient was made comfortable with use of pillows under the head/chest, hips and ankles. Skin overlying the injection site was prepared broadly with ChloraPrep applicator and draped in a sterile manner. Aseptic technique was employed throughout. The endplates of the vertebral body at the site of interest were aligned in the AP view. Ipsilateral oblique angulation was utilized to better visualize the neuroforamen of interest. Local anesthesia was established by infiltration with approximately 5 mL of 0.5% PF lidocaine via a 1-1/2 inch 27-gauge needle. A 22-gauge 5.0 inch Ashlee (pencil point) spinal needle was advanced until the needle approached the 6 o'clock position on the pedicle just superior to the exiting nerve root. on the left at L4-5. Lateral view was utilized to confirm appropriate position of the needle tip within the superior and posterior portion of the respective foramen. In an AP view, 1 mL of Omnipaque 300 contrast medium was injected after negative aspiration for CSF, blood or other bodily fluid, showing appropriate neurogram without evidence of intravascular or intrathecal spread of contrast. Digital subtraction imaging was used with an additional 1ml of the same contrast medium to confirm absence of intravascular contrast spread. A 1mL solution containing 10 mg of dexamethasone was injected after negative repeat aspiration. Appropriate spread of the injectate was confirmed with washout of previously injected contrast. No parasthesias were elicited. Needle was removed completely intact without difficulty. Images were saved and documented in the patient chart. Patient's skin was cleaned and sterile bandage applied. The patient tolerated the procedure well. The patient was transported to the recovery area in stable condition where they were observed for an appropriate amount of time prior to discharge, without evidence of complication. The patient was instructed to avoid excessive activity for the next 48 hours, including climbing and frequent use of stairs. Showers only for 48 hours. They were instructed not to drive or operate heavy machinery for 24 hours. They are to monitor for severe headaches, fevers, chills, night sweats, erythema/swelling at the site or any other signs of infection, bleeding/bruising, bowel or bladder changes as well as new pain, weakness or numbness in the upper or lower extremity. Should they notice these changes, they are instructed to call our office immediately or report directly to the nearest Emergency Department if no answer or if after posted office hours. COMPLICATIONS: None COMMENTS: None CONTRAST WASTED: 28 mL Omnipaque 300. STEROID WASTED: 0 mg of dexamethasone. Complications No immediate complications Condition Stable Disposition Same day [facility] Billing Surgery - Charge Forward: Surgery Billing
--- OUTSIDE RECORDS SUMMARY | 2025-05-20 06:59 | XMS_ITS | Patient Health Record ---
Author Organization [facility] Address [address] [place], [place] [id number] Care Team Providers Care Solar Photovoltaic Crew Lead Name Role Phone RASHAUN RIOS Unavailable [phone] Epifanio Sun Unavailable Unavailable Allergies No Known Allergies Reason For Referral Reason Essence Referral ([id number]) Diagnosis 1 Pain in right ankle and joints of right foot (M25.571) Diagnosis 2 Pain in left ankle a nd joints of left foot (M25.572) Referred Organization [facility] Referred Provider RASHAUN RIOS Referred Address [address],[place], [id number], Referred Provider Specialty Podiatry Referral Priority Routine [...] Referral Organization [facility] Referring Provider First Name RASHAUN Referring [...] Medrol DosepakOr iginal MedicationMedrol Dosepak *Reorder from [facility] for eRx and Interaction Alerts* 02/07/20 18 Active diclofenac sodium 0.01 MG/MG Topical Gel CUTANEOUS diclofenac sodium 0.01 MG/MG Topical GelOriginal Medicationdiclofenac sodium 0.01 MG/MG Topical Gel *Reorder from [facility] for eRx and Interaction Alerts* 04/24/20 18 Active dexamethasone phosphate 4 MG/ML Injectable Solution dexamethasone phosphate 4 MG/ML Injectable SolutionOriginal Medicationdexamethasone phosphate 4 MG/ML Injectable Solution *Reorder from [facility] for eRx and Interaction Alerts* 12/28/19 19 Active Immunizations Vaccine Route Administration Date Status Comme nts Influenza, high dose seasonal Unknown 06/13/2023 Admini stered Social History Social History Additional Details Category Social Info Options Details Migrated Social History Migrated Social History Alcohol intake : , History of tobacco use : , Smoking Status : Former smoker Vital Signs Height-cm 167.64 cm 05/06/2025 Weight-kg 99.79 kg 05/06/2025 Height 66.00 in 05/06/2025 Weight 220 lbs 05/06/2025 BMI 35.51 kg/m2 05/06/2025 Encounters Encounter Location Date Provider Diagnosis [facility] [address] [place] [id number] 02/18/2025 RASHAUN RIOS Other specified rheumatoid arthritis, [...] in right foot M79.671 [facility] [address] [place], [place] [id number] 05/06/2025 RASHAUN SNHUYK Other specified rheumatoid arthritis, right ankle and foot M06.871 ; Other specified rheumatoid arthritis, left ankle and foot M06.872 ; Pain in right ankle and joints of right foot M25.571 ; Pain in left ankle and joints of left foot M25.572 ; Other hammer toe(s) (acquired), right foot M20.41 and Other hammer toe(s) (acquired), left foot M20.42 [facility] [place] [address] [place] [id number] 09/03/2024 RASHAUN RIOS Other specified rheumatoid arthritis, left ankle and foot M06.872 ; Other specified rheumatoid arthritis, right ankle and foot M06.871 ; Pain in right foot M79.671 and Pain in left toe(s) M79.675 [facility] [place] [address] [place] [id number] 12/10/2024 RASHAUN RIOS Other specified rheumatoid arthritis, [...] Kenalog was injected to the left forefoot. 05/06/2025 Other specified rheumatoid arthritis, right ankle [...] injected to the right sinus tarsi 02/18/2025 Pain in right ankle and joints [...] joints of left foot (ICD-10 - M25.572) 05/06/2025 Pain in left ankle and joints [...] Digit Hammertoe correction with hardware, right foot. 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) 12/10/2024 Primary osteoarthritis, left ankle and foot (ICD-10 - M19.072) 12/10/2024 Pain in left toe(s) (ICD-10 - M79.675) 02/18/2025 Pain in left toe(s) (ICD-10 - M79.675) 05/06/2025 Other hammer toe(s) (acquired), left foot (ICD-10 - M20.42) 02/18/2025 Primary osteoarthritis, right ankle and foot (ICD-10 - M19.071) 12/10/2024 Primary osteoarthritis, right ankle and foot (ICD-10 - M19.071) 12/10/2024 Pain in right foot (ICD-10 - M79.671) 02/18/2025 Pain in right foot (ICD-10 - M79.671) Plan Of Treatment Next Appt Details Provider Name:RASHAUN RIOS, 12:30:00 PM, [address] [place], [place], [phone], Provider Name:RASHAUN RIOS, 10:50:00 AM, [address], [id number], Insurance Providers Payer Name Payer Address Payer Phone Subscriber Number Group Number Insured Name Patient Relationship to Insured Coverage Start Date Coverage End Date [employer]. [address] [place] [id number] MARYCARMEN HERMAN Self - patient is the insured
--- OUTSIDE RECORDS SUMMARY | 2025-05-20 06:59 | XMS_ITS ---
Author Name WARNER DENTON M.D. Address [address] [place] [address] Phone [phone] Organization [facility] ([facility]) Care Team Providers Care Dispatcher Refinery Name Role Phone WARNER DENTON Unavailable [phone] Gina Sun Unavailable [phone] Reason for Referral Not Available Allergies, adverse [...] medical decision making, total time 45-59 minutes [id number] 2024-09-27 No Data Available No Data Availa [...]
--- OUTSIDE RECORDS SUMMARY | 2025-05-20 06:59 | XMS_ITS | Patient Health Record ---
Author Organization [facility] candelaria Address [address] [place] [address] Care Team Providers Care Polish Maker Name Role Phone Gina Sun MD Primary Care Provider Unav ailable Jayne Boland Unavailable [phone] Allergies No Known Allergies Results Component Value Reference Range Notes eGFR Reviewed date:05/22/2024 04:01:52 PM Interpretation: Performing Lab:[facility] , [address]. [facility] [address] Notes/Report: eGFR 60 >=60 mL/min/1.73 m2 Normal [...] Automated Reviewed date:05/22/2024 03:35:41 PM Interpretation: Performing Lab:[facility] , [address] [facility] [place] [address] Notes/Report: Neut Abs 5.1 1.5-6.5 K/cumm ImmGran Abs 0.0 0.0-0.1 K/cumm Lymphocyte Abs 1.9 0.8-3.3 K/cumm Cheshire Abs 0.5 0.2-0.8 K/cumm Eos Abs 0.2 [...] Interpretive Data was last revised on 2017. Cheshire Pct 6.3 Interpretive Data Percent cell count [...] revised on 2017. COMPREHENSIVE METABOLIC PANE L (03680) Reviewed date:10/23/2024 08:32:26 AM Interpretation:Lab Result Generalized Performing Lab:[facility]NE, [facility]qmbk21366 Administration Bandar Chaves [id number] [facility] Vo Notes/Report: FASTING: NO FASTING:NO NON-FASTING; NON-FASTING [...] 08:32:25 AM Interpretation:Lab Result Generalized Performing Lab:YVONNE, [facility]landNvbhq[address] [facility] CenterCavrgfjMS[address] [facility] Notes/Report: NON-FASTING; NON-FASTING FASTING:NO FASTING: NO [...] MPV 9.8 7.5-12.5 fL ABSOLUTE NEUTROPHILS [phone] cells/uL ABSOLUTE LYMPHOCYTES [phone] cells/uL ABSOLUTE MONOCYTES 370 200-950 cells/uL ABSOLUTE EOSINOPHILS 96 15-500 cells/uL ABSOLUTE BASOPHILS 37 0-200 cells/uL NEUTROPHILS 68.6 LYMPHOCYTES 24.6 MONOCYTES 5.0 EOSINOPHILS 1.3 BASOPHILS 0.5 UA, reflex Micro to Culture Reviewed date:05/22/2024 04:01:53 PM Interpretation: Performing Lab:[facility] , [address] [place] [address]. [facility] [address] Notes/Report: Color, Ur Yellow Yellow Clarity, Ur [...] tendency for uric acid stone formation. Source: [facility] [employer] Current Interpretive Data was last revised on [...] Rate Reviewed date:05/22/2024 09:15:42 PM Interpretation: Performing Lab:[facility] , [address] [place] [address]. [facility] [address] Notes/Report: ESR 21 1-30 mm/hr Rheumatoid Factor Reviewed date:05/22/2024 04:01:52 PM Interpretation: Performing Lab:[facility] , [address] [place] [address]. [facility] [address] Notes/Report: RF, Afshin 10 <=15 IUnits/mL QTB Gold Reviewed date:05/25/2024 08:25:49 PM Interpretation: Performing Lab:[facility] , [address] [place] [address]. [facility] [address] Notes/Report: QuantiFERON TB Gold Negative Negative No [...] Mitogen-Nil 2.30 NIL 0.00 Test Performed by: [facility] [address] [place] [address] Cleaning Custodian: Austen Tsang Ph.D.; CLIA# [id number] Creatine Kinase Reviewed date:05/22/2024 04:01:52 PM Interpretation: Performing Lab:[facility] , [address]. [place] [address] Notes/Report: Total CK 106 30-200 Units/L Comprehensive metabolic pane l (CMP) Reviewed date:05/22/2024 04:01:52 PM Interpretation: Performing Lab:[facility] , [address] [place] [address] Notes/Report: Sodium 142 135-145 mmol/L Plasma Potassium [...] C4 Reviewed date:05/22/2024 04:01:52 PM Interpretation: Performing Lab:[facility] , [address] [place] [address]. [facility] [address] Notes/Report: Complement, C4 35 10-40 mg/dL Complement C3 Reviewed date:05/22/2024 04:01:52 PM Interpretation: Performing Lab:[facility] , [address] [place] [address]. [facility] [address] Notes/Report: Complement, C3 167 90-180 mg/dL CBC w auto diff Reviewed date:05/22/2024 03:35:42 PM Interpretation: Performing Lab:[facility] , [address] [place] [address]. [facility] [address] Notes/Report: WBC 7.6 3.8-9.9 K/cumm Hgb 13.5 11.9-15.5 g/dL Hct 40.6 35.6-45.5 % Platelet Ct 355 150-400 K/cumm MPV 10.4 9.1-12.3 fL RBC 4.45 3.90-5.20 M/cumm MCV 91.2 81.3-96.4 fL MCH 30.3 27.1-33.3 pg MCHC 33.3 32.3-35.7 g/dL RDW CV 14.3 11.1-14.9 % RDW SD 47.8 35.7-48.1 fL NRBC Abs Auto 0.00 0.00-0.01 K/cumm C Reactive Protein Reviewed date:05/22/2024 04:01:52 PM Interpretation: Performing Lab:[facility] , [address] [place] [address]. [facility] [address] Notes/Report: C-Reactive Protein 5.1 <=10.0 mg/L Anti-CCP (Cyclic Citrullinat ed Peptide Ab) Reviewed date:05/23/2024 11:23:29 AM Interpretation: Performing Lab:[facility] , [address] [facility]. [facility] [address] Notes/Report: CCP Ab <0.5 <=2.9 units/mL Interpretive data Negative: <3 units/mL Positive: > or equal to 3 units/mL Current interpretive data was last revised on 2016. MIGUEL reflex titer pattern GILMER + dsDNA Reviewed date:05/23/2024 01:08:32 PM Interpretation: Performing Lab:[facility] , [address] [address]. [facility] [address] Notes/Report: MIGUEL, Qual Negative Interpretive Data Normal [...] last revised on 2020. Testing performed by: [facility], [address] [place]., [address] COMPREHENSIVE METABOLIC PANE L (04712) Reviewed date:03/29/2025 12:38:29 PM Interpretation:Lab Result Generalized Performing Lab:YVONNE, [facility]Children[facility]landFnyng37672 Administration [address] Chaves [id number] [facility] Notes/Report: FASTING: NO FASTING:NO NON-FASTING; NON-FASTING [...] 12:38:29 PM Interpretation:Lab Result Generalized Performing Lab:YVONNE [facility]Children[facility]landMsbmz[address] [place] [address] [facility] Notes/Report: NON-FASTING; NON-FASTING FASTING:NO FASTING: NO [...] MPV 9.9 7.5-12.5 fL ABSOLUTE NEUTROPHILS 3540 5805-6635 cells/uL ABSOLUTE LYMPHOCYTES 6635 768-7988 cells/uL ABSOLUTE MONOCYTES 382 200-950 cells/uL ABSOLUTE EOSINOPHILS 48 15-500 cells/uL ABSOLUTE BASOPHILS 42 0-200 cells/uL NEUTROPHILS 66.8 LYMPHOCYTES 24.3 MONOCYTES 7.2 EOSINOPHILS 0.9 BASOPHILS 0.8 Reason For Referral Reason PT APPROVED TO SEE Tru BOLAND FOR 30 VISITS Diagnosis 1 Other overlap syndro mes (M35.1) Referring Provider First Name Epifanio Referring Provider Last Name Dino Referred Organization [facility] janette Referred Provider Jayne Boland Referred Address [address],[place], [place],[address],[place] Referred Provider Specialty Rheumatology Referral Priority Routine Medications Medication SIG (Take, Route, Frequency, Duration) Notes Start Date End Date Status Levothyroxine Sodium 88 MCG 1 tablet in the morning on an empty stomach Orally Once a day; Duration: 30 day(s) Active metFORMIN HCl 500 MG 1 tablet with a artemio l Orally Once a day; Duration: 30 day(s) Active Hydroxychloroquine Sulfate 200 MG TAKE 2 TABLETS BY MOUTH EVERY DAY; Duration: 90 Active Felodipine ER 2.5 MG 1 tablet Orally Onc e a day; Duration: 30 day(s) Active Gabapentin 300 MG 1 capsule Orally Onc e a day; Duration: 30 day(s) Active Ibandronate Sodium 150 MG Oral; Duration: 90 Days Active Triamterene-HCTZ 75-50 MG 1 tablet in th e morning Orally Once a day; Duration: 30 day(s) Active Folic Acid 1 MG TAKE 1 TABLET BY ELAINE TH EVERY DAY; Duration: 90 Active Wellbutrin XL 300 MG 1 tablet in the mor pepe Orally Once a day Active tiZANidine HCl 4 MG 1 tablet at bedtime as needed Orally Once a day; Duration: 30 day(s) Active Methotrexate Sodium 2.5 MG TAKE 6 TABLET S BY MOUTH ONCE WEEKLY; Duration: 84 Active Tirzepatide 5 MG/0.5ML as directed Subcutaneous [...] W/U Status Risk Notes Problem Overlap syndrome (948101393) 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) Active confirmed Problem Overlap syndrome (680749714) Overlap syndrome (M35.1) Active confirmed Problem Mixed connective tissue disease (137889480) Mixed connective tissue disease (M35.1) Active confirmed Problem Inflammatory arthritis (7277745) Inflammatory arthritis (M19.90) Active confirmed Problem Raynaud's disease (912411398) Raynaud's phenomenon without gangrene (I73.00) Active confirmed Vital Signs Heart Rate 71 /min 04/03/2025 Temperature 97.7 degrees Fahrenheit 04/03/2025 Blood pressure diastolic 70 mm Hg 04/03/2025 Oximetry 99 % 04/03/2025 Height-cm 167.64 cm 04/03/2025 Weight-kg 85.78 kg 04/03/2025 Height 66 in 04/03/2025 Blood pressure systolic 108 mm Hg 04/03/2025 Weight 189.1 lbs 04/03/2025 BMI 30.52 kg/m2 04/03/2025 Encounters Encounter Location Date Provider Diagnosis [facility] [address] [place] [address] 05/22/2024 Jayne Du Pain in unspecified joint M25.50 ; Mixed connective tissue disease M35.1 ; High risk medication use Z79.899 and Overlap syndrome M35.1 [facility] [address] [place] [address] 06/05/2024 Jayne Du Inflammatory arthrit is M19.90 ; Decreased GFR R94.4 and Raynaud's phenomenon without gangrene I73.00 [facility] [address] [place] [address] 10/22/2024 Jayne Du Inflammatory arthrit is M19.90 ; Decreased GFR R94.4 and Raynaud's phenomenon without gangrene I73.00 [facility] [address] [place] [address] 01/04/2025 Jayne Du Inflammatory arthrit is M19.90 ; Decreased GFR R94.4 and Raynaud's phenomenon without gangrene I73.00 [facility] [address] [place] [address] 04/03/2025 Jayne Addy Inflammatory arthrit is M19.90 ; Decreased GFR R94.4 and Raynaud's phenomenon without gangrene I73.00 [facility] [address] [place] [address] 07/05/2024 Jayne Boland Assessments Encounter Date Diagnosis (ICD Code) Assessment [...] CBC (INCLUDES DIFF/PLT) (6399) COMPREHENSIVE METABOLIC PANEL (00349) Next Appt Details Provider Name:Jayne Addy, 07/02 01:00:00 PM, [address], [place], [address], Insurance Providers Payer Name Payer Address Payer Phone Subscriber Number Group Number Insured Name Patient Relationship to Insured Coverage Start Date Coverage End Date [facility] [address] [place] [address] [id number] Noni Alonzo Self - patient is the insured Medical (General) History Medical History History ICD Code connective tissue disease, o verlap syndrome, autoimmune thyroiditis, BPPV, COPD, hypertension, GERD, small fiber neuropathy, spinal stenosis L4-5, headache Surgical History Surgery Date(Month/Year) back surgery
[2025-05-20 07:15] VITALS: BP 125/88; PULSE 69; RESP 16; TEMP 36.3; O2SAT 100
[2025-05-20 07:51] VITALS: BP 129/78; PULSE 61; RESP 14; O2SAT 96
[2025-05-20] MEDS: LIDOCAINE 2% PF LOCAL INJ 5 ML VIAL INFILTRATE (07:52)
[2025-05-20] MEDS: dexAMETHasone SOD PHOS INJ 10 MG/ML 1 ML VIAL IM (07:53)
[2025-05-20 07:54] VITALS: BP 129/80; PULSE 62; RESP 12; O2SAT 98
[2025-05-20] MEDS: LIDOCAINE 1% PF INJ 5 ML VIAL INFILTRATE (07:54)
[2025-05-20 08:01] VITALS: BP 127/88; PULSE 64; RESP 20; O2SAT 100
== END 2025-05-20 08:35 | disposition home or self-care (01) ==
LOC: ASC 06:57
PROVIDERS: PCP Family Medicine; Visit Provider Anesthesiology Pain Medicine
PROC: (CPT 64483; principal; 2025-05-20 07:50)
DX: M48.061 Spinal stenosis, lumbar region without neurogenic claudication (principal); M54.16 Radiculopathy, lumbar region
CPT/HCPCS: 64483; 99199

== ENCOUNTER 2025-06-04 11:03 | Day surgery (SDC) | payer OTHER, SELFPAY ==
--- NOTE | ~2025-06-04 | XR_ITS ---
EXAM/PROCEDURE: XR fluoroscopy no charge HISTORY: MARIUSZ INTRA-ARTICULAR SI JT STEROID INJ COMPARISON: None available. TECHNIQUE: Fluoroscopic spot images for pain service. Fluoroscopy time: 50.9 seconds Dose: 12.28 mGy IMPRESSION: Fluoroscopic guided imaging. No radiologist present. See also procedure/operative notes for complete evaluation. Reviewed, dictated and finalized at location A. ECTOR GENERAL IMPRESSION: Fluoroscopic guided imaging. No radiologist present. See also proce dure/operative notes for complete evaluation.
--- NOTE | 2025-06-04 10:38 | P.OP_ITS ---
Procedure Note - Detailed Date of Procedure 06/04/25 Pre-op Diagnosis SI joint arthropathy, chronic low back pain Post-op Diagnosis Same Procedure Performed Bilateral Sacroiliac Joint Steroid Injection under Fluoroscopic Guidance and with Contrast Control. Surgeon Ryder Nelson MD Sonography Technician None Anesthesia Local Description of Procedure INFORMED CONSENT: Risks, benefits and alternatives to the procedure were discussed in detail with the patient who expressed explicit understanding and consent to proceed. Patient was informed verbally and in written form regarding the risks associated with the procedure including the low risk of serious infection, bleeding/bruising, allergic reaction, nerve or organ injury, paralysis, procedural site pain or discomfort, worsening pain and/or mobility, failure to treat and/or disfigurement. The patient expressed explicit understa nding and consent to proceed. All materials required for the procedure were available prior to procedure start. Site and side were marked prior to procedure and confirmed in the presence of the patient. PROCEDURE IN DETAIL: The patient was brought to the procedural suite and placed in the prone position. Patient was made comfortable with use of pillows under the head/chest, hips and ankles. Skin overlying the injection site on the affected side(s) was prepared broadly with ChloraPrep applicator and draped in a sterile manner. Aseptic technique was used throughout. The right SI joint was identified in the AP view and contralateral oblique angulation with caudal tilt was utilized to optimize visualization of the inferior and medial joint line representing the posterior portion of the joint. Local anesthesia was established by infiltration with approximately 5 mL of 2% lidocaine via a 1-1/2 inch 27-gauge needle. A 22-gauge 3.5 inch Quincke spinal needle was advanced until the needle entered the inferior third of the joint space approximately 1cm cephalad from its most inferior point. In the AP view, 0.5 mL of Omnipaque 300 contrast medium was injected after negative aspiration for CSF, blood or other bodily fluid, showing appropriate intra-articular spread of contrast without evidence of intravascular, perineural or intrathecal placement. A 1.5 mL solutio n containing 5 mg of dexamethasone in 0.5% PF bupivacaine was injected after repeat negative aspiration. Appropriate spread of the injectate was confirmed with washout of previous injected contrast. No parasthesias were elicited. Needle was removed completely intact without difficulty. The same exact procedure was repeated for all remaining levels on the contralateral side, left SI joint, modified as necessary to accommodate for the new target location with identical findings/results and no evidence of complication. Images were saved and documented in the patient chart. Patient's skin was cl eansed and sterile bandage applied. The patient tolerated the procedure well. The patient was transported to the recovery area in stable condition where they were observed for an appropriate amount of time prior to discharge, without evidence of complication. The patient was instructed to avoid excessive activity for the next 48 hours, including climbing and frequent use of stairs. Showers only for 48 hours. They were instructed not to drive or operate heavy machinery for 24 hours. They are to monitor for severe headaches, fevers, chills, night sweats, erythema/swelling at the site or any other signs of infection, bleeding/bruising, bowel or bladder changes as well as new pain, weakness or numbness in the upper or lower extremity. Should they notice these changes, they are instructed to call our office immediately or report directly to the nearest Emergency Department if no answer or if after posted office hours. COMPLICATIONS: None COMMENTS: None CONTRAST WASTED: 29mL Omnipaque 300. Complications No immediate complications Condition Stable Disposition Same day [facility] Billing Surgery - Charge Forward: Surgery Billing
--- NOTE | 2025-06-04 10:38 | WPDHPUPDATE1 ---
History and Physical Update Update Date/Time: 06/04/25 10:38 History and Physical has been reviewed, including an updated exam of the patient. There are NO changes in the patient's condition. Risks, benefits, and alternatives have been discussed and questions answered. Patient agrees to proceed with procedure.
[2025-06-04 12:03] VITALS: BP 139/90; PULSE 67; RESP 16; TEMP 37.4; O2SAT 100
[2025-06-04 13:06] VITALS: BP 131/83; PULSE 61; RESP 8; O2SAT 100
[2025-06-04] MEDS: LIDOCAINE 1% PF INJ 5 ML VIAL INFILTRATE (13:08)
[2025-06-04] MEDS: BUPivacaine HCL 0.5% 10 ML AMP INFILTRATE (13:10)
[2025-06-04 13:11] VITALS: BP 126/82; PULSE 62; RESP 10; O2SAT 98
[2025-06-04] MEDS: dexAMETHasone SOD PHOS INJ 10 MG/ML 1 ML VIAL IM (13:11)
[2025-06-04 13:16] VITALS: BP 128/81; PULSE 62; RESP 10; O2SAT 98
[2025-06-04 13:30] VITALS: BP 103/91; PULSE 71; RESP 14
== END 2025-06-04 13:36 | disposition home or self-care (01) ==
LOC: ASC 11:05
PROVIDERS: PCP Family Medicine; Visit Provider Anesthesiology Pain Medicine
PROC: (CPT G0260; principal; 2025-06-04 13:00)
DX: M46.1 Sacroiliitis, not elsewhere classified (principal)
CPT/HCPCS: G0260 ×2; 27096; 99199